=== PATIENT | female | born 1940 | race Caucasian/White ===

== ENCOUNTER 2019-09-04 10:04 | Inpatient (IN) | payer MEDICARE, SELFPAY ==
[2019-09-04] VITALS (27 sets, daily range): BP systolic 83–183; BP diastolic 55–91; PULSE 54–145; RESP 8–18; TEMP 36.1–36.6; O2SAT 92–100; BMI 31.6
--- NOTE | ~2019-09-04 | XR_ITS ---
EXAMINATION: XR chest 2V DATE: 09/04/2019 11:03 INDICATION: Shortness of breath. Chest pain. TECHNIQUE: Frontal and lateral views of the chest were obtained. COMPARISON: Chest CT 08/07/2018 FINDINGS: There is mild scarring at the lung apices. No pleural effusion or pneumothorax. Cardiomegal y is noted. IMPRESSION: 1. Cardiomegaly. Reviewed, dictated and finalized at location A. IMPRESSION: 1. Cardiomegaly.
--- NOTE | ~2019-09-04 | CT_ITS ---
EXAMINATION: CT BRAIN W/O DATE: 09/06/2019 13:12 INDICATION: Confusion. Headache. TECHNIQUE: Computed tomography (CT) of the head was performed without intravenous contrast. The dose- length product was 605.33 mGy-cm. The mA was adjusted according to patient size. Iterative reconstruc tion technique was employed. COMPARISON: No prior studies for comparison. FINDINGS: Normal brain parenchymal volume for age. Normal onofre-white differentiation. No acute intrac ranial hemorrhage, infarction, mass or mass effect. There are scattered mild periventricular and subc ortical white matter changes, most likely related to small vessel ischemic disease (microangiopathy). There is intracranial atherosclerosis. No ventriculomegaly or midline shift. Midline sagittal images demonstrate a normal corpus callosum, c raniovertebral junction and sella turcica. Basilar cisterns are patent. Paranasal sinuses and mastoids are pneumatized. No depressed skull fractures. IMPRESSION: 1. No acute intracranial abnormality. Reviewed, dictated and finalized at location A.
--- NOTE | ~2019-09-04 | CT_ITS ---
EXAMINATION: CT brain wo con DATE: 09/04/2019 20:27 INDICATION: Left upper extremity numbness and tingling. Visual changes. TECHNIQUE: Computed tomography (CT) of the head was performed without intravenous contrast. The dose- length product was 605.33 mGy-cm. The mA was adjusted according to patient size. Iterative reconstruc tion technique was employed. COMPARISON: CT dated 08/07/2018 FINDINGS: Mild generalized atrophy. No acute intracranial hemorrhage, infarction, mass or mass effect . No ventriculomegaly or midline shift. There are scattered mild periventricular and subcortical whit e matter changes, most likely related to small vessel ischemic disease (microangiopathy). Paranasal s inuses and mastoids are pneumatized. No depressed skull fractures. Midline sagittal images are unrema rkable. There is intracranial atherosclerosis. IMPRESSION: 1. No acute intracranial abnormality. 2: Chronic age-related findings. Reviewed, dictated and finalized at location A.
--- NOTE | ~2019-09-04 | US_ITS ---
EXAMINATION: US carotid duplex BI DATE: 09/05/2019 13:08 INDICATION: Left upper extremity numbness and tingling. Subjective visual disturbance. TECHNIQUE: Grayscale, color Doppler, and pulsed Doppler images of the cervical carotid arteries were obtained. The degree of vessel stenosis is placed in one of the following categories: normal, <50%, 5 0-69%, >=70% but less than near-occlusion, near-occlusion, or total occlusion. Note that percent sten osis relative to normal distal artery lumen diameter is indirectly measured from velocity measurement s as described by Daniel, et al. Radiology 2003; 229:340-346. COMPARISON: None. FINDINGS: RIGHT: The right common carotid artery (CCA) peak systolic velocity (PSV) is 47 cm/s. The right internal car otid artery (ICA) PSV is 91 cm/s. The right ICA end-diastolic velocity (EDV) is 29 cm/s. The right IC A/CCA PSV ratio is 1.9. Grayscale and color Doppler images yield an estimate of <50% diameter reducti on from plaque in the ICA. The external carotid artery (ECA) PSV is 61 cm/s. There is antegrade flow in the right vertebral artery. LEFT: The left CCA PSV is 50 cm/s. The left ICA PSV is 63 cm/s. The left ICA EDV is 20 cm/s. The left ICA/C CA PSV ratio is 1.3. Grayscale and color Doppler images yield an estimate of <50% diameter reduction from plaque in the ICA. The ECA PSV is 59 cm/s. There is antegrade flow in the left vertebral artery. IMPRESSION: 1. <50% stenosis in the right internal carotid artery. 2. <50% stenosis in the left internal carotid artery. Reviewed, dictated and finalized at location A.
--- NOTE | 2019-09-04 10:16 | ECG_ITS ---
Measurements Intervals [place] Rate: 144 P: [place]: 0 QRS: 47 QRSD: 85 T: 212 QT: 276 QTc: 427 Interpretive Statements SUPRAVENTRICULAR TACHYCARDIA, CONSIDER ATRIAL FLUTTER ST-T WAVE ABNORMALITY IN DIFFUSE LEADS- CONSIDER ISCHEMIA ABNORMAL ECG Electronically Signed On 09-04-2019 10:21:47 CDT by Ramos Chavez D.O.
--- NOTE | 2019-09-04 10:29 | ED.GENADULT ---
HPI - General Adult General Chief complaint: Chest Pain Stated complaint: DIARRHEA Time Seen by Provider: 09/04/19 10:20 History of Present Illness HPI narrative: 79yo female with history of atrial fibrillation, coronary artery disease, hypertension, hypothyroidism, ckd BIBEMS for multiple complaints. The history is limited and somewhat unrelieble due to confusion. She reports stabbing chest pain. Onset uncertain. She also reports a bought of diarrhea and generally not feeling well. When EMS arrived they found her to be hypotensive. She received 1 liter NS. Related Data Home Medications Medication Instructions Recorded Confirmed amlodipine 5 mg PO DAILY 09/04/19 09/04/19 cetirizine 5 mg PO DAILY 09/04/19 09/04/19 hydrochlorothiazide 12.5 mg PO DAILY 09/04/19 09/04/19 lisinopril 20 mg PO DAILY 09/04/19 09/04/19 omeprazole 20 mg PO DAILY 09/04/19 09/04/19 sertraline 100 mg PO DAILY 09/04/19 09/04/19 Allergies Allergy/AdvReac Type Severity Reaction Status Date / Time [id number] Reductase Allergy Mild hives Verified 09/05/19 09:35 Inhibitor Sulfa (Sulfonamide Allergy Unknown Unknown Verified 09/11/17 15:45 Antibiotics) Review of Systems Review of Systems: All systems reviewed & are unremarkable except as noted in HPI and below Constitutional: Constitutional: Reports weakness Gastrointestinal: Gastrointestinal: Reports diarrhea Genitourinary: Genitourinary: Denies dysuria Musculoskeletal: Musculoskeletal: Reports back pain Neurologic: Reports confusion and Reports weakness ON LICENSE OF [facility] Past Medical History Medical History Chronic anemia Chronic kidney disease, stage 3 Coronary artery disease With history of stent. Essential hypertension Hypothyroidism Paroxysmal atrial fibrillation Transient ischemic attack (~2009) Surgical History Surgical History History of appendectomy History of bladder suspension procedure History of cholecystectomy History of heart artery stent Family History Family History Other Hypertension Social History Social History Social History: The patient is and lives with her in independent living at [facility]. She denies alcohol, tobacco, and drug use. She designates her , [place], as her surrogate decision maker and she wishes to be a full code. Second hand tobacco smoke exposure: No Spiritual care concerns: No Exam Const: General: alert, confusion and ill appearing Orientation/consciousness: patient oriented x3 HENMT: Mouth: Yes dry mucous membranes Eyes: Pupils: Equal, round and reactive pupils present EOM: EOMs intact bilaterally GI: GI Palp: Yes Soft to palpation and No Tenderness to palpation present (GI) Skin: General skin exam: normal color Neuro: General: patient oriented x3, moves all extremities, no focal motor deficits and CN's II-XI intact bilaterally Speech: normal speech Course Vital Signs Vital signs: Vital Signs Pulse Rate 145 H 09/04/19 10:11 Respiratory Rate 11 L 09/04/19 10:11 Pulse Oximetry 100 09/04/19 10:11 Temperature 36.9 C 09/07/19 16:00 Pulse Rate 125 H 09/07/19 18:00 Respiratory Rate 15 09/07/19 18:00 Blood Pressure 110/64 09/07/19 18:00 Pulse Oximetry 96 09/07/19 18:00 Medical Decision Making Medical Records Medical records reviewed: Yes I reviewed the patient's medical records. Vital Signs Vital Signs: Vital Signs Pulse Rate 145 H 09/04/19 10:11 Respiratory Rate 11 L 09/04/19 10:11 Pulse Oximetry 100 09/04/19 10:11 Temperature 36.9 C 09/07/19 16:00 Pulse Rate 125 H 09/07/19 18:00 Respiratory Rate 15 09/07/19 18:00 Blood Pressure 110/64 09/07/19 18:00 Pulse Oximetry 96 09/07/19 18:00 Lab Data Re
[2019-09-04] MEDS: SODIUM CHLORIDE 0.9% IV 1,000 ML 999 ML IV CONT (10:50)
[2019-09-04 11:00] LABS: Basophils Absolute Auto 0.1 K/mm3 (0.0-0.1); Eosinophils Absolute Auto 0.2 K/mm3 (0-0.3); Eosinophils Percent Auto 2.4 % (0-4.4); Hematocrit 37.5 % (37.0-47.0); Hemoglobin 12.8 g/dL (12.0-15.0); Immature Granulocyte Absolute 0.03 K/mm3 (0.00-0.031); Immature Granulocyte Percent A 0.4 % (0-0.5); Lymphocytes Absolute Auto 2.64 K/mm3 (0.9-3.2); Lymphocytes Percent Auto 36.7 % (18.3-44.2); Mean Corpuscular HGB Conc 34.1 g/dl (32-36); Mean Corpuscular Hemoglobin 30.5 pg (26-34); Mean Corpuscular Volume 89.3 fl (80-100); Mean Platelet Volume 11.8 fl (7.4-10.4); Monocytes Absolute Auto 0.3 K/mm3 (0.1-0.6); Monocytes Percent Auto 3.8 % (2.6-8.5); Neutrophils Percent Auto 55.7 % (45.5-73.1); Platelet Count Result 257 k/mm3 (150-375); Red Cell Distribution Width 15.9 % (11.5-14.5); White Blood Count 7.2 K/mm3 (4.5-10.0)
[2019-09-04 11:11] LABS: INR 1.1; Prothrombin Time 13.4 Seconds (11.1-14.7)
[2019-09-04 11:12] LABS: Partial Thromboplastin Time 42.3 SECONDS (22.3-36.8)
[2019-09-04 11:13] LABS: Lactic Acid Reflex 3.2 mmol/L (0.7-2.1)
[2019-09-04 11:15] LABS: Alanine Aminotransferase 24 U/L (4-35); Albumin Level 4.2 g/dL (3.5-5.1); Alkaline Phosphatase 44 U/L (38-126); Aspartate Amino Transferase 44 U/L (14-36); Bilirubin,Total 0.7 mg/dL (0.2-1.3); Blood Urea Nitrogen 10 mg/dL (7-17); CRP < 0.5 mg/dL (<1.0); Calcium 8.7 mg/dL (8.4-10.2); Carbon Dioxide 22 mmol/L (22-30); Chloride 103 mmol/L (98-107); Estimated CRCL calculation 33 ml/min; Estimated Glomerular Filt Rate 40; Glucose 156 mg/dL (65-105); Potassium 3.4 mmol/L (3.4-5.0); Sodium 136 mmol/L (137-145)
[2019-09-04 11:23] LABS: Troponin I 0.013 ng/mL (0.000-0.034)
[2019-09-04 11:30] LABS: Add Urine Microscopic? YES; Appearance Urine Clear (Clear); Bacteria Urine 1+ /hpf; Bilirubin Urine Negative (Negative); Blood Urine Negative (Negative); Color Urine Yellow (Yellow); Glucose Urine UA Negative (Negative); Ketones Urine Negative (Negative); Leukocyte Esterase Ur Trace LEU/UL (Negative); Mucus Urine Rare /lpf; Nitrate Urine Positive (Negative); Protein Urine Negative (Negative); RBC Urine 0-2 /hpf (0-2); Specific Grav Ur 1.009 (1.001-1.035); Squamous Epithelial Cell Urine Rare /hpf (Few); Urobilinogen Urine Negative mg/dL (<2.0)
[2019-09-04 13:57] LABS: Reflex Lactic Acid Yes or No Add Lactic
[2019-09-04 15:00] LABS: Lactic Acid 1.2 mmol/L (0.7-2.1)
--- NOTE | 2019-09-04 15:11 | ADMGEN ---
This patient, Joanne Newman, was admitted to IMU Room 209-01. Patient/family oriented to hospital policies and general routines including ID bracelet, bed and alarms, visiting hours, pain management, procedures, bathroom and other care routines, personal items, smoking policy, room service/diet, and visiting hours. Valuables list has been completed. Information on how to activate the Rapid Response Team has been discussed. Patient/Family are encouraged to report perceived risks to care and to ask questions if they do not understand what they are told or what they should do.
[2019-09-04] MEDS: LACTATED RINGERS 1,000 ML 125 ML IV CONT (16:50)
--- NOTE | 2019-09-04 18:30 | PM.IMHP ---
H&P: HPI History of Present Illness Chief complaint: Chest pain and generalized malaise. Narrative: oJanne Newman is a 79-year-old female with History of paroxysmal atrial fibrillation, coronary artery disease, hypertension, hypothyroidism, chronic kidney disease stage 3, and history of anemia who presented to the emergency department earlier today via EMS from home for evaluation of chest pain and generalized malaise. Obtaining a history from the patient is somewhat difficult, as she seems to be confused with regards to the last 24 hours. She goes on to say that she is aware that she is confused, and this has never happened before. In any regard, this morning she apparently developed a stabbing sensation , almost like a hot instrumentation instructor the left upper anterior chest region radiating somewhat into the left scapula. It has been constant since the outset, but will occasionally intensify without pattern. She reports no aggravating or alleviating factors. She has also had mild shortness of breath with that in addition to dizziness and some feelings of anxiety. Also, she reports bladder spasms and feelings of incomplete voiding and mild dysuria for the past 2 days or so. On arrival to the emergency department she was hypotensive and tachycardic, either in SVT or possible atrial flutter. After receiving IV fluid rehydration, there was improvement in her blood pressure and heart rate. At the time my evaluation, she once again reports having worsening pain in the left anterior chest with numbness / tingling down the left arm. She has no known history of coronary artery disease. No recent travel or history of venous thromboembolism. She denies pleuritic pain, lower extremity edema, and calf pain. No sweats, nausea, or vomiting. Review of Systems Review of Systems: Narrative: 12 systems were reviewed with pertinent positives and negatives as per HPI. She has had eyelid edema since the trees began to pollenate along with watery eyes. She also reports occasional diplopia, but goes on to say that has been present for years, but only if she is now wearing her glasses. She denies dysphagia and dysarthria. No history of myasthenia gravis. No history of stroke, but she does mention history of TIA. She does have dizziness/vertigo intermittently and apparently this is been a longstanding problem. No recent issues with regards to that, however. She denies focal weakness. She had a loose stool last evening. No recent travel or sick contacts. Except as documented, all other systems were reviewed and are negative. [facility] Past Medical History Medical History (Updated 09/05/19 @ 01:00 by Angela Thapa PA-C) Chronic anemia Chronic kidney disease, stage 3 Coronary artery disease With history of stent. Essential hypertension Hypothyroidism Paroxysmal atrial fibrillation Transient ischemic attack (~2009) Surgical History Surgical History (Updated 09/05/19 @ 00:57 by Angela Thapa PA-C) History of appendectomy History of bladder suspension procedure History of cholecystectomy History of heart artery stent Family History Family History (Updated 09/05/19 @ 00:57 by Angela Thapa PA-C) Other Hypertension Social History Social History (Updated 09/05/19 @ 00:57 by Angela Thapa PA-C) Social History: The patient is and lives with her in independent living at [facility]. She denies alcohol, tobacco, and drug use. She designates her , [place], as her surrogate decision maker and she wishes to be a full code. Second hand tobacco smoke exposure: No Spiritual care concerns: No Meds Home Medications and Allergies Home Medications Medication Instructions Recorded Confirmed Type amlodipine 5 mg PO DAILY 09/04/19 09/04/19 History cetirizine 5 mg PO DAILY 09/04/19 09/04/19 History hydrochlorothiazide 12.5 mg PO DAILY 09/04/19 09/04/19 History lisinopril 20 mg PO DAILY 09/04/19 09/04/19 Hist
--- NOTE | 2019-09-04 20:52 | PC.NURSE ---
Pt called around 1919 panicked, stating she was sob with c/o pelvic pain, dizziness, left chest pain which felt BETTER with pressure and deep breathing and left arm tingling that improved to only include some finger tingling. Placed pt on bed wu and able to void some but still c/o pelvic pain. IVY Scanlon came to see her at this time and was made aware of complaints. Post void bladder scanned with a result of [id number]. [place] [facility] [place]ed 300 more. Nurse then took pt down for stat ct of the head as ordered. Pt now feeling better and resting comfortably. Results of CT communicated to PA.
--- NOTE | 2019-09-04 21:52 | ECG_ITS ---
Measurements Intervals [place] Rate: 54 P: 50 MO: 169 QRS: -6 QRSD: 97 T: 56 QT: 421 QTc: 401 Interpretive Statements SINUS BRADYCARDIA MINIMAL Q WAVES- INFERIOR LEADS BORDERLINE ST-T WAVE ABNORMALITY- DIFFUSE LEADS BASELINE ARTIFACT- I, II, III, AVR, AVL BORDERLINE ECG Electronically Signed On 09-05-2019 7:07:28 CDT by Ramos Chavez D.O.
[2019-09-04] MEDS: NITROGLYCERIN OINTMENT 1 INCH DOSE 0.5 INCH TRANSDERM (23:33)
[2019-09-04] MEDS: ASPIRIN 81 MG CHEWABLE TABLET 324 MG PO (23:37)
[2019-09-05] VITALS (15 sets, daily range): BP systolic 134–170; BP diastolic 82–94; PULSE 54–89; RESP 16–18; TEMP 36.1–36.6; O2SAT 94–98
[2019-09-05] MEDS: HEPARIN SOD/D5W 100 UNITS/ML 25,000 UNITS/250 ML BAG 8 UNITS IV CONT
[2019-09-05 00:17] LABS: Basophils Percent Auto 0.5 % (0.2-1.2); Eosinophils Absolute Auto 0.1 K/mm3 (0-0.3); Eosinophils Percent Auto 1.5 % (0-4.4); Hematocrit 34.9 % (37.0-47.0); Hemoglobin 11.8 g/dL (12.0-15.0); Immature Granulocyte Absolute 0.01 K/mm3 (0.00-0.031); Immature Granulocyte Percent A 0.2 % (0-0.5); Lymphocytes Absolute Auto 2.03 K/mm3 (0.9-3.2); Lymphocytes Percent Auto 34.3 % (18.3-44.2); Mean Corpuscular HGB Conc 33.8 g/dl (32-36); Mean Corpuscular Volume 88.8 fl (80-100); Mean Platelet Volume 11.5 fl (7.4-10.4); Monocytes Absolute Auto 0.3 K/mm3 (0.1-0.6); Monocytes Percent Auto 5.4 % (2.6-8.5); Neutrophils Absolute Auto 3.4 K/mm3 (1.3-6.7); Neutrophils Percent Auto 58.1 % (45.5-73.1); Platelet Count Result 196 k/mm3 (150-375); Red Blood Count 3.93 M/mm3 (4.2-5.4); Red Cell Distribution Width 15.8 % (11.5-14.5); White Blood Count 5.9 K/mm3 (4.5-10.0)
[2019-09-05 00:30] LABS: Partial Thromboplastin Time 41.8 SECONDS (22.3-36.8)
[2019-09-05] MEDS: ACETAMINOPHEN 325 MG TABLET 650 MG PO (04:21)
[2019-09-05 05:27] LABS: Basophils Percent Auto 0.7 % (0.2-1.2); Eosinophils Absolute Auto 0.1 K/mm3 (0-0.3); Hematocrit 34.2 % (37.0-47.0); Hemoglobin 11.6 g/dL (12.0-15.0); Immature Granulocyte Absolute 0.01 K/mm3 (0.00-0.031); Immature Granulocyte Percent A 0.2 % (0-0.5); Lymphocytes Absolute Auto 2.27 K/mm3 (0.9-3.2); Lymphocytes Percent Auto 40.7 % (18.3-44.2); Mean Corpuscular HGB Conc 33.9 g/dl (32-36); Mean Corpuscular Hemoglobin 29.7 pg (26-34); Mean Corpuscular Volume 87.7 fl (80-100); Mean Platelet Volume 11.5 fl (7.4-10.4); Monocytes Absolute Auto 0.3 K/mm3 (0.1-0.6); Monocytes Percent Auto 5.2 % (2.6-8.5); Neutrophils Absolute Auto 2.9 K/mm3 (1.3-6.7); Neutrophils Percent Auto 51.2 % (45.5-73.1); Platelet Count Result 192 k/mm3 (150-375); Red Cell Distribution Width 15.7 % (11.5-14.5); White Blood Count 5.6 K/mm3 (4.5-10.0)
[2019-09-05 05:49] LABS: Alanine Aminotransferase 25 U/L (4-35); Albumin Level 4.1 g/dL (3.5-5.1); Alkaline Phosphatase 46 U/L (38-126); Aspartate Amino Transferase 65 U/L (14-36); Bilirubin,Total 0.9 mg/dL (0.2-1.3); Blood Urea Nitrogen 8 mg/dL (7-17); Calcium 8.8 mg/dL (8.4-10.2); Carbon Dioxide 24 mmol/L (22-30); Chloride 104 mmol/L (98-107); Estimated CRCL calculation 45 ml/min; Estimated Glomerular Filt Rate 54; Glucose 99 mg/dL (65-105); HDL Direct 46 mg/dL; Magnesium 2.1 mg/dL (1.6-2.3); Potassium 3.6 mmol/L (3.4-5.0); Sodium 135 mmol/L (137-145); Triglycerides 220 mg/dL (<150)
[2019-09-05 05:50] LABS: Cholesterol 338 mg/dL (0-200); LDL Cholesterol Direct 195 mg/dL
[2019-09-05 06:45] LABS: Partial Thromboplastin Time > 200.0 SECONDS (22.3-36.8)
[2019-09-05 07:48] LABS: Thyroid Stimulating Hormone Reflex > 100.000 uIU/mL (0.465-4.68)
[2019-09-05] MEDS: LORATADINE 5 MG TABLET PO (08:30)
[2019-09-05] MEDS: NITROGLYCERIN OINTMENT 1 INCH DOSE 0.5 INCH TRANSDERM ×3 (08:30→22:15)
[2019-09-05] MEDS: SERTRALINE HCL 50 MG TABLET 100 MG PO (08:30)
[2019-09-05] MEDS: PANTOPRAZOLE SOD SESQUIHYDRATE 20 MG TAB PO (08:30)
[2019-09-05] MEDS: ASPIRIN 81 MG CHEWABLE TABLET PO (08:30)
[2019-09-05 09:11] LABS: Free T4 Free Thyroxine Reflex < 0.07 ng/dL (0.78-2.19)
[2019-09-05] MEDS: LEVOTHYROXINE SODIUM 25 MCG TABLET PO (10:25)
[2019-09-05] MEDS: EZETIMIBE 10 MG TABLET PO (10:25)
--- NOTE | 2019-09-05 13:34 | PM.CNCAR ---
Assessment and Plan Assessment and plan (1) Non-STEMI (non-ST elevated myocardial infarction): Code(s): I21.4 - Non-ST elevation (NSTEMI) myocardial infarction Status: Acute Assessment and Plan: 79 y/o with h/o HTN, CAD, hypothyroidism who presents with generalized body pain including chest pain), confusion, found to have lactic acidosis and troponin elevation Patient is poor historian, reports remote cardiac stent >10 years ago with no cardiology follow up for many years Her troponin elevation could be due to type II WV from increased demand related underlying infection suggested by lactic acidosis however she has no leukocytosis or fever to support that hence Acute coronary syndrome can't be ruled out Patient currently chest pain free and her EKG shows no injury or ischemic changes Will continue with IV heparin and start ASA/statin Will check 2D echocardiogram to assess LV function Will follow blood cultures and if they remain negative with no evidence of infection then will plan LHC/coronary angiogram possibly by Saturday Okay to advanced diet (2) Essential hypertension: Code(s): I10 - Essential (primary) hypertension Status: Acute Assessment and Plan: Hypotensive on admisison. Better after received IV fluids. Will hold antihypertensives for now. (3) Hypothyroidism: Code(s): E03.9 - Hypothyroidism, unspecified Status: Acute Assessment and Plan: with TSH >100. Management per priry team (4) Confusion: Code(s): R41.0 - Disorientation, unspecified Status: Acute Assessment and Plan: CT head with no acute findings. possibly metabolic in the setting of UTI History of Present Illness History of Present Illness Consult date/time: 09/05/19 13:34 79 y/o female with h/o CAD, HTN and Hypothyroidism who presents with not feeling well Patient is difficult historian. She reports dizziness and generalized body pain including chest pain that she describe as discomfort and squeeze sensation. She can't specifiy how long symptoms has been ongoing for. She thinks her called the ambulance eventually. On admission she was hypotensive with BP 88/50 with labs showing lactic acidosis of 3.3. She recevied fluids and with that her BP corrected. She was started on Abx for UTI but her WBC is normal and she is a febrile. Labs were also remarkable for profound hypothyroidism with TSH of >100 and almost undetectable FT4. Her initial trop was normal then subsequent trop was 2.6-->2.1. She was started on heparin drip. She denies any active chest pain now. She believes that she has stent in her heart placed more than 10 years ago. She has not been followed up by cardiology lately though. initial EKG shows tachycardia at HR 144. She has very low voltage on EKG and it is difficult to tell exact rhythm but it appears likely to be sinus tachycardia.Heart rate improved after she received fluids and Subsequent EKG shows sinus rhythm at heart rate of 70, still with low voltage. Denies tobacco abuse. Reason For Visit: Chest pain and generalized malaise. Review of Systems Review of Systems: All systems reviewed & are unremarkable except as noted in HPI and below Constitutional: Constitutional: Denies fatigue and Denies headache(s) Eyes: Eyes: Denies blurry vision ENT: Reports Normal hearing present and Denies headache(s) Cardiovascular: Cardiovascular: Denies chest pain, Denies diaphoresis, Denies pedal edema, Denies leg edema, Denies lightheadedness, Denies palpitations and Denies dyspnea Respiratory: Respiratory: Denies cough and Denies dyspnea Gastrointestinal: Gastrointestinal: Denies abdominal pain Musculoskeletal: Musculoskeletal: Denies back pain Neurologic: Reports Normal hearing present and Denies headache(s) Psychiatric: Psychiatric: Denies anxiety Endocrine: Endocrine: Denies fatigue and Denies palpitations PMFSH Past Medical History Medical His
[2019-09-05 14:03] LABS: Partial Thromboplastin Time 69.6 SECONDS (22.3-36.8)
[2019-09-05] MEDS: HEPARIN SODIUM 5,000 UNITS/ML VIAL 2500 UNITS IV PUSH (14:27)
--- NOTE | 2019-09-05 15:36 | PM.IMPN ---
Progress Note: A&P Assessment and Plan (1) Chest pain: Code(s): R07.9 - Chest pain, unspecified Status: Acute Assessment and Plan: -----Troponins elevated but trending down. Patient is not having any more chest pain and no evidence of tachycardia on exam. She is now on a heparin drip. History of a stent 10 years ago, but does not take medications. She will be restarted on aspirin and Zetia because the patient has allergies to statins. Plan to do a catheterization possibly Saturday. Patient is currently on heparin. Echo ordered. (2) Confusion: Code(s): R41.0 - Disorientation, unspecified Status: Acute Assessment and Plan: -----likely due to UTI and untreated hypothyroidism. Continue treatment for both. Since she is elderly with possible heart disease, Levothyroxine was started 25 mcg. (3) Urinary tract infection: Code(s): N39.0 - Urinary tract infection, site not specified Status: Acute Assessment and Plan: -----urine culture still pending. Continue ceftriaxone at this time. Await cultures and adjust therapy as needed. Symptoms improving (4) Chronic kidney disease, stage 3: Code(s): N18.3 - Chronic kidney disease, stage 3 (moderate) Status: Acute Assessment and Plan: -----creatinine at baseline. IV fluids stopped. (5) Chronic anemia: Code(s): D64.9 - Anemia, unspecified Status: Acute Assessment and Plan: -----chronic. Continue to monitor (6) Essential hypertension: Code(s): I10 - Essential (primary) hypertension Status: Acute Assessment and Plan: -----last blood pressure 153/90. She has not been taking any of her home medications. Will start losartan. (7) Hypothyroidism: Code(s): E03.9 - Hypothyroidism, unspecified Status: Acute Assessment and Plan: -----patient has not been taking her Synthroid for quite some time. TSH is greater than 100 and T4 is undetectable. Will start 25 mcg of levothyroxine since she is elderly and has possible heart disease. Will need close monitoring outpatient and likely increase in this dose. (8) Hypothyroidism: Code(s): E03.9 - Hypothyroidism, unspecified Status: Acute Time Spent With Patient Time with patient: 25 - 35 minutes Subjective Date/time seen: 09/05/19 15:36 Interval history: Pt is a noncompliance 79-year-old female here for confusion and chest pain. Patient was seen today and states she has not had any chest pain or palpitations since being here. She says she still feels confused but that has been going on for a while. She has had some nausea with food but no vomiting. She denies fevers, chills, or leg swelling. She says she is no longer having dysuria or frequency. She mentions that she has a diagnosis of hypothyroidism but quit taking her medications. When asked why, she said she moved never refilled them. I talked to her about the importance Synthroid and how hypothyroidism can actually cause her confusion as well. She now understands the importance of taking his medication although I am not sure if she will be compliant. Her last cardiac catheterization was 10 years ago after an abnormal stress test. Review of Systems Review of Systems: All systems reviewed & are unremarkable except as noted in HPI and below Exam Narrative: Exam Narrative: General: Overweight patient resting comfortably in bed in no acute distress HEENT: normocephalic Neck: supple Neuro: Alert and oriented x4 for me today. Cranial nerves 2-12 intact. Equal strength upper lower extremities 5/5. Able to do [id number] and rapid alternating movements. CV:RRR and telemetry shows heart rate 61 normal sinus rhythm. She does have some episodes of bradycardia. Resp: Crackles, especially at the right base Abd: Soft, non distended. No pain to palpation. Positive bowel sounds Extremities: No swelling, erythema, o
[2019-09-05 21:34] LABS: Partial Thromboplastin Time > 200.0 SECONDS (22.3-36.8)
[2019-09-06] VITALS (14 sets, daily range): BP systolic 139–174; BP diastolic 86–102; PULSE 58–89; RESP 16–20; TEMP 36.1–36.8; O2SAT 93–100
[2019-09-06 03:53] LABS: Hematocrit 35.1 % (37.0-47.0); Hemoglobin 12.4 g/dL (12.0-15.0); Mean Corpuscular HGB Conc 35.3 g/dl (32-36); Mean Corpuscular Hemoglobin 30.4 pg (26-34); Mean Platelet Volume 11.1 fl (7.4-10.4); Platelet Count Result 177 k/mm3 (150-375); Red Blood Count 4.08 M/mm3 (4.2-5.4); Red Cell Distribution Width 15.3 % (11.5-14.5); White Blood Count 6.5 K/mm3 (4.5-10.0)
[2019-09-06 04:07] LABS: Alanine Aminotransferase 29 U/L (4-35); Albumin Level 4.4 g/dL (3.5-5.1); Alkaline Phosphatase 49 U/L (38-126); Aspartate Amino Transferase 62 U/L (14-36); Bilirubin,Total 0.9 mg/dL (0.2-1.3); Blood Urea Nitrogen 8 mg/dL (7-17); Calcium 9.3 mg/dL (8.4-10.2); Carbon Dioxide 22 mmol/L (22-30); Chloride 100 mmol/L (98-107); Estimated CRCL calculation 45 ml/min; Estimated Glomerular Filt Rate 54; Glucose 110 mg/dL (65-105); Partial Thromboplastin Time 136.9 SECONDS (22.3-36.8); Potassium 3.2 mmol/L (3.4-5.0); Sodium 133 mmol/L (137-145)
[2019-09-06] MEDS: NITROGLYCERIN OINTMENT 1 INCH DOSE 0.5 INCH TRANSDERM ×3 (05:09→20:41)
--- NOTE | 2019-09-06 05:28 | PC.NURSE ---
Pt woke up slightly confused, sitting up in bed with complaints of chest pain that had subsided when nurse reached bedside. Blood pressure 157/102 sitting. Nitro patch replaced to chest. Pt still complaining of dizziness and wanted to lay back down. Pt did recall that she was in the hospital and recalled when reminded about seeking care for chest pain and cardiac cath planned for Saturday. Pt able to answer orientation questions correctly. Pt was asleep again when nurse checked on her a few minutes later.
[2019-09-06] MEDS: LEVOTHYROXINE SODIUM 25 MCG TABLET PO (06:28)
[2019-09-06] MEDS: EZETIMIBE 10 MG TABLET PO (08:04)
[2019-09-06] MEDS: SERTRALINE HCL 50 MG TABLET PO (08:04)
[2019-09-06] MEDS: LOSARTAN POTASSIUM 50 MG TABLET PO (08:04)
[2019-09-06] MEDS: LORATADINE 5 MG TABLET PO (08:04)
[2019-09-06] MEDS: PANTOPRAZOLE SOD SESQUIHYDRATE 20 MG TAB PO (08:04)
[2019-09-06] MEDS: ASPIRIN 81 MG CHEWABLE TABLET PO (08:05)
[2019-09-06] MEDS: POTASSIUM CHLORIDE 20 MEQ TABLET 40 MEQ PO (09:56)
[2019-09-06 10:21] LABS: Partial Thromboplastin Time 61.7 SECONDS (22.3-36.8)
[2019-09-06] MEDS: HEPARIN SODIUM 5,000 UNITS/ML VIAL 2500 UNITS IV PUSH (10:45)
--- NOTE | 2019-09-06 12:32 | PM.PNCARD ---
Progress Note: A&P Assessment and Plan (1) Non-STEMI (non-ST elevated myocardial infarction): Code(s): I21.4 - Non-ST elevation (NSTEMI) myocardial infarction Status: Acute Assessment and Plan: 79 y/o with h/o HTN, CAD, hypothyroidism who presents with generalized body pain including chest pain and trop elevation peaked at 2. Also found to have profound hypothyroidism with TSH >100 Chest pain free. No events on tele. 2D echo pending (could not be done over the weekend) On IV heparin. Will plan C/coronary angiogram in am. Patient understands risks and benefits. Agrees to proceed. She reports having cardiac stent 10 years ago. Unknown anatomy. (2) Essential hypertension: Code(s): I10 - Essential (primary) hypertension Status: Acute Assessment and Plan: Hypotensive on admisison. Better after received IV fluids. Antihypertensives has been hled. BP high now. Will resume Lisinopril. . (3) Hypothyroidism: Code(s): E03.9 - Hypothyroidism, unspecified Status: Acute Assessment and Plan: with TSH >100. Management per [facility] (4) Confusion: Code(s): R41.0 - Disorientation, unspecified Status: Acute Assessment and Plan: CT head with no acute findings. possibly metabolic in the setting of UTI and hypothyrodism Subjective Date/time seen: 09/06/19 12:32 Feels tired and sleepy this am. She is alert and oriented. Review of Systems Review of Systems: All systems reviewed & are unremarkable except as noted in HPI and below Constitutional: Constitutional: Denies fatigue and Denies headache(s) Eyes: Eyes: Denies blurry vision ENT: Reports Normal hearing present and Denies headache(s) Cardiovascular: Cardiovascular: Denies chest pain, Denies diaphoresis, Denies pedal edema, Denies leg edema, Denies lightheadedness, Denies palpitations and Denies dyspnea Respiratory: Respiratory: Denies cough and Denies dyspnea Gastrointestinal: Gastrointestinal: Denies abdominal pain Musculoskeletal: Musculoskeletal: Denies back pain Neurologic: Reports Normal hearing present and Denies headache(s) Psychiatric: Psychiatric: Denies anxiety Endocrine: Endocrine: Denies fatigue and Denies palpitations Exam Const: General: no acute distress Eyes: Sclera: sclerae normal Neck: Neck: no JVD Carotids: no bruits Resp: Effort & Inspection: normal respiratory effort Auscultation: clear to auscultation bilaterally Cardio: Rate: regular rate and not tachycardic Rhythm: regular rhythm Heart sounds: no gallops, no murmurs and no rubs Skin: General skin exam: normal color Neuro: Cranial nerves: Yes Normal hearing present Speech: normal speech Extrem: General: normal to inspection and no edema Psych: Affect: normal affect Objective Data Vital Signs Vital Signs: Vital Signs - 24 hr 09/05/19 14:38 09/05/19 16:00 09/05/19 18:00 Temperature 36.6 C Pulse Rate 74 68 89 Respiratory Rate 18 Blood Pressure 154/94 H Pulse Oximetry 96 09/05/19 18:50 09/05/19 20:00 09/05/19 22:00 Temperature 36.2 C L Pulse Rate 78 71 86 Respiratory Rate 16 Blood Pressure 166/91 H Pulse Oximetry 98 09/05/19 23:29 09/06/19 00:00 09/06/19 02:00 Temperature 36.1 C L Pulse Rate 73 70 69 Respiratory Rate 18 Blood Pressure 163/86 H Pulse Oximetry 94 09/06/19 03:59 09/06/19 04:00 09/06/19 05:27 Temperature 36.1 C L Pulse Rate 66 66 Respiratory Rate 16 Blood Pressure 159/92 H 157/102 H Pulse Oximetry 93 09/06/19 05:59 09/06/19 08:00 09/06/19 10:02 Temperature 36.2 C L Pulse Rate 79 89 75 Respiratory Rate 16 Blood Pressure 139/92 H Pulse Oximetry 98 09/06/19 12:00 Temperature 36.4 C Pulse Rate 71 Respiratory Rate 16 Blood Pressure 161/89 H Pulse Oximetry 97 Intake/Output Intake/Output: Intake & Output 09/03/19 09/04/19 09/05/19 09/06/19 23:59 23:59 23:59 23:59 Intake Total 0440 710
--- NOTE | 2019-09-06 15:52 | PM.IMPN ---
Progress Note: A&P Assessment and Plan (1) Chest pain: Code(s): R07.9 - Chest pain, unspecified Status: Acute Assessment and Plan: -----Troponins elevated but trending down. Patient is not having any more chest pain and no evidence of tachycardia on exam. She is now on a heparin drip. History of a stent 10 years ago, but does not take medications. She will be restarted on aspirin and Zetia because the patient has allergies to statins. Plan to do a catheterization Saturday. Echo ordered. (2) Confusion: Code(s): R41.0 - Disorientation, unspecified Status: Acute Assessment and Plan: -----likely due to UTI and untreated hypothyroidism. Continue treatment for both. Head CT negative for bleed today. Since she is elderly with possible heart disease, Levothyroxine was started 25 mcg. (3) Urinary tract infection: Code(s): N39.0 - Urinary tract infection, site not specified Status: Acute Assessment and Plan: -----Urine cx confirmed e. coli UTI sensitive to ceftriaxone. Continue with that. (4) Chronic kidney disease, stage 3: Code(s): N18.3 - Chronic kidney disease, stage 3 (moderate) Status: Acute Assessment and Plan: -----creatinine at baseline. IV fluids stopped. (5) Chronic anemia: Code(s): D64.9 - Anemia, unspecified Status: Acute Assessment and Plan: -----chronic. Continue to monitor (6) Essential hypertension: Code(s): I10 - Essential (primary) hypertension Status: Acute Assessment and Plan: -----last blood pressure 161/89. She has not been taking any of her home medications. Continue losartan. Will do PRN hydralazine. After cath, may consider adding a 2nd medication if still running high. (7) Hypothyroidism: Code(s): E03.9 - Hypothyroidism, unspecified Status: Acute Assessment and Plan: -----patient has not been taking her Synthroid for quite some time. TSH is greater than 100 and T4 is undetectable. Started 25 mcg of levothyroxine since she is elderly and has possible heart disease. Will need close monitoring outpatient and likely increase in this dose. Subjective Date/time seen: 09/06/19 15:52 Interval history: Pt is a noncompliance 79-year-old female here for confusion and chest pain. Patient seen today and she states she is tired today and slept well overnight. She has not had any CP, palpitations, or SOB since being here. She still feels a bit confused and weak. Nursing staff said she took awhile to wake up earlier but neuro exam was fine with normal speech. Pt states she is eating and drinking well. No diarrhea. Exam Narrative: Exam Narrative: General: Overweight patient resting comfortably in bed in no acute distress HEENT: normocephalic Neck: supple Neuro: Alert and oriented x4 for me today. Cranial nerves 2-12 intact. Equal strength upper lower extremities 5/5. Able to do [id number] and rapid alternating movements. CV:RRR and telemetry shows heart rate 60. No significant alarm reviews Resp: CTA today. Abd: Soft, non distended. No pain to palpation. Positive bowel sounds Extremities: No swelling, erythema, or pain to palpation. Objective Data Vital Signs Vital Signs: Vital Signs - 24 hr 09/05/19 16:00 09/05/19 18:00 09/05/19 18:50 Temperature 97.8 F 97.1 F L Pulse Rate 68 89 78 Respiratory Rate 18 16 Blood Pressure 154/94 H 166/91 H Pulse Oximetry 96 98 09/05/19 20:00 09/05/19 22:00 09/05/19 23:29 Temperature 96.9 F L Pulse Rate 71 86 73 Respiratory Rate 18 Blood Pressure 163/86 H Pulse Oximetry 94 09/06/19 00:00 09/06/19 02:00 09/06/19 03:59 Temperature 97 F L Pulse Rate 70 69 66 Respiratory Rate 16 Blood Pressure 159/92 H Pulse Oximetry 93 09/06/19 04:00 09/06/19 05:27 09/06/19 05:59 Temperature Pulse Rate 66 79 Respiratory Rate Blood Pressure 157/102 H Pulse
[2019-09-06] MEDS: ACETAMINOPHEN 325 MG TABLET 650 MG PO (22:42)
[2019-09-07] VITALS (18 sets, daily range): BP systolic 90–205; BP diastolic 52–101; PULSE 55–125; RESP 10–20; TEMP 36.8–37.2; O2SAT 93–99
[2019-09-07 02:02] LABS: Partial Thromboplastin Time 55.9 SECONDS (22.3-36.8)
[2019-09-07 04:36] LABS: Hematocrit 33.2 % (37.0-47.0); Hemoglobin 11.6 g/dL (12.0-15.0); Mean Corpuscular HGB Conc 34.9 g/dl (32-36); Mean Corpuscular Hemoglobin 30.4 pg (26-34); Mean Corpuscular Volume 86.9 fl (80-100); Mean Platelet Volume 11.3 fl (7.4-10.4); Platelet Count Result 190 k/mm3 (150-375); Red Blood Count 3.82 M/mm3 (4.2-5.4); Red Cell Distribution Width 15.1 % (11.5-14.5); White Blood Count 5.9 K/mm3 (4.5-10.0)
[2019-09-07 04:55] LABS: Alanine Aminotransferase 33 U/L (4-35); Albumin Level 4.3 g/dL (3.5-5.1); Alkaline Phosphatase 48 U/L (38-126); Aspartate Amino Transferase 65 U/L (14-36); Bilirubin,Total 0.9 mg/dL (0.2-1.3); Blood Urea Nitrogen 13 mg/dL (7-17); Calcium 9.6 mg/dL (8.4-10.2); Carbon Dioxide 27 mmol/L (22-30); Chloride 96 mmol/L (98-107); Estimated CRCL calculation 42 ml/min; Estimated Glomerular Filt Rate 48; Glucose 106 mg/dL (65-105); Phosphorus 3.5 mg/dL (2.5-4.5); Potassium 3.6 mmol/L (3.4-5.0); Sodium 130 mmol/L (137-145)
[2019-09-07] MEDS: NITROGLYCERIN OINTMENT 1 INCH DOSE 0.5 INCH TRANSDERM (05:27)
[2019-09-07] MEDS: LEVOTHYROXINE SODIUM 25 MCG TABLET PO (05:28)
--- NOTE | 2019-09-07 09:11 | PM.PNCARD ---
Progress Note: A&P Assessment and Plan (1) Non-STEMI (non-ST elevated myocardial infarction): Code(s): I21.4 - Non-ST elevation (NSTEMI) myocardial infarction Status: Acute Assessment and Plan: pt has multiveseel disease. IABP was placed. pt will be transferred for Heart Team approach to [facility]. For now is going to be transferred to ICU. (2) Chest pain: Code(s): R07.9 - Chest pain, unspecified Status: Acute (3) Essential hypertension: Code(s): I10 - Essential (primary) hypertension Status: Acute Subjective Date/time seen: 09/07/19 09:11 Pt with hx of CAD s/p PCI 10 yrs ago, hypothyroidism who was admitted with Atrial flutter. She was found to have elevated troponin and was diagnosed with NSTEMI. pt underwent cath today. Exam Const: General: no acute distress Nutritional Appearance: well nourished Orientation/consciousness: patient oriented x3 HENMT: Head: normal to inspection and atraumatic Ears: hearing grossly normal bilaterally Face and sinus: normal facial exam Eyes: General: appearance normal, both eyes and all related structures Pupils: Equal, round and reactive pupils present EOM: EOMs intact bilaterally Neck: Neck: supple Chest: Chest palpation & inspection: normal inspection of the chest Resp: Effort & Inspection: normal respiratory effort and no respiratory distress Auscultation: clear to auscultation bilaterally Cardio: Jugular venous distension: no JVD Rate: regular rate Heart sounds: S1 normal heart sound present, S2 normal heart sound present and no murmurs Peripheral pulses: Peripheral pulses 2+ throughout GI: GI Palp: No abdominal tenderness Auscultation: normal bowel sounds Skin: General skin exam: normal color Neuro: General: patient oriented x3 Cranial nerves: Yes Equal, round and reactive pupils present Extrem: General: normal to inspection and no clubbing, cyanosis or edema Objective Data Vital Signs Vital Signs: Vital Signs - 24 hr 09/06/19 10:02 09/06/19 12:00 09/06/19 14:00 Temperature 36.4 C Pulse Rate 75 71 60 Respiratory Rate 16 Blood Pressure 161/89 H Pulse Oximetry 97 09/06/19 16:00 09/06/19 18:00 09/06/19 20:00 Temperature 36.3 C L 36.8 C Pulse Rate 70 75 82 Respiratory Rate 20 18 Blood Pressure 171/98 H 174/86 H Pulse Oximetry 100 97 09/06/19 22:00 09/07/19 00:00 09/07/19 02:00 Temperature 37.2 C Pulse Rate 78 74 72 Respiratory Rate 18 Blood Pressure 170/93 H Pulse Oximetry 96 09/07/19 04:00 09/07/19 06:00 09/07/19 08:00 Temperature 36.8 C 36.9 C Pulse Rate 66 68 65 Respiratory Rate 18 18 Blood Pressure 142/82 H 169/96 H Pulse Oximetry 93 97 Intake/Output Intake/Output: Intake & Output 09/04/19 09/05/19 09/06/19 09/07/19 23:59 23:59 23:59 23:59 Intake Total 2308 880 930 250 Output Total 150 3325 2275 1000 Balance 2158 -2445 -1345 -750 Meds/Results Medications: Active Medications Generic Name Dose Route Start Last Admin Trade Name Freq PRN Reason Stop Dose Admin Acetaminophen 650 mg 09/05/19 04:13 09/06/19 22:42 Tylenol Tablet PO 650 mg Q6H PRN Administration Mild Pain (1-3) or Fever Aspirin 81 mg 09/05/19 08:00 09/06/19 08:05 Aspirin Chewable PO 81 mg DAILY@0800 [facility] Administration Ezetimibe 10 mg 09/05/19 09:00 09/06/19 08:04 Zetia PO 10 mg QAM [facility] Administration Heparin Sodium (Porcine) 4,000 units 09/04/19 23:31 Heparin Sodium IV PUSH PRN PRN aPTT less than 55 seconds Heparin Sodium (Porcine) 2,500 units 09/04/19 23:31 09/06/19 10:45 Heparin Sodium IV PUSH 2,500 units PRN PRN Administration aPTT 55 - 70 seconds Hydralazine HCl 10 mg 09/06/19 15:57 Apresoline Hcl Inj IV PUSH Q8H PRN systolic >170 Ceftriaxone Sodium/Dextrose 1 gm in 50 mls @ 100 mls/hr 09/05/19 09:00 09/06/19 09:14 Rocephin 1 Gm/D5w 50 Ml IVPB Infused Q24H [facility] Inf[employer]
--- NOTE | 2019-09-07 09:19 | ECG_ITS ---
Measurements Intervals [place] Rate: 62 P: 68 [place]: 194 QRS: 12 QRSD: 95 T: 57 QT: 424 QTc: 431 Interpretive Statements SINUS RHYTHM BORDERLINE ST-T WAVE ABNORMALITY- DIFFUSE LEADS BASELINE ARTIFACT- I, II , III, AVF, V4, V6 BORDERLINE ECG Electronically Signed On 09-07-2019 17:47:00 CDT by Ramos Chavez D.O.
--- NOTE | 2019-09-07 11:02 | WPDCNINT ---
Assessment and Plan Assessment and plan (1) Non-STEMI (non-ST elevated myocardial infarction): Code(s): I21.4 - Non-ST elevation (NSTEMI) myocardial infarction Status: Acute Assessment and Plan: NSTEMI status post cardiac catheterization on 09/07/2019: Multi-vessel disease, patient being referred to outside hospital for CABG IABP to place Cardiology following the patient Continue monitor vitals (2) Urinary tract infection: Code(s): N39.0 - Urinary tract infection, site not specified Status: Acute Assessment and Plan: Patient with E coli UTI, susceptible to ceftriaxone -continue ceftriaxone (3) Chronic kidney disease, stage 3: Code(s): N18.3 - Chronic kidney disease, stage 3 (moderate) Status: Acute Assessment and Plan: Creatinine at baseline, continue to monitor (4) Essential hypertension: Code(s): I10 - Essential (primary) hypertension Status: Acute Assessment and Plan: Continue losartan, patient has orders for nitroglycerin infusion for pressure control (5) Hypothyroidism: Code(s): E03.9 - Hypothyroidism, unspecified Status: Acute Assessment and Plan: Continue levothyroxine Additional Plan Discussed with patient updated her with her condition and plan of care. Patient is aware that she will be transferring to [facility] for CABG Code status: Full code Critical care time spent: 38 minutes Due to a high probability of clinically significant, life threatening deterioration, the patient required my highest level of preparedness to intervene emergently and I personally spent this critical care time directly and personally managing the patient. This critical care time included obtaining a history; examining the patient; pulse oximetry; ordering and review of studies; arranging urgent treatment with development of a management plan; evaluation of patient's response to treatment; frequent reassessment; and discussions with other providers. It was exclusive of separately billable procedures and treating other patients and teaching time. Please see Assessment and Plan section and the rest of the note for further information on patient assessment and treatment [employer] Consult Note Consult date: 09/07/19 Time Seen: 09:44 Reason for consult: NSTEMI status post cardiac catheterization with multivessel disease, IABP was placed and await patient transfer for CABG HPI: Joanen Newman is a 79 year old female with past medical history of proximal atrial fibrillation, coronary artery disease, hypertension, hypothyroidism, chronic kidney disease stage 3, history of anemia, TIA presented to the ED via EMS on 09/04/2019 4 chest pain and general malaise. Patient was found to have chest discomfort with his squeezing sensation. Patient also was hypotensive with low blood pressures, elevated lactic acid of 3.3. She received IV fluids with blood pressure correction and lactic acid being normalized. E coli UTI which was sensitive to ceftriaxone. Given NSTEMI with elevated troponin, patient was taken to cardiac catheterization today on 09/07/2019 and found to have multivessel disease, IABP was inserted. Patient was transferred to the ICU in the interim before she can be transferred to a higher level of care for coronary artery bypass graft. Patient seen and examined on arrival to the ICU. She is awake, alert, oriented,, answers to questions appropriately. Patient denies any chest pain, shortness of breath, abdominal pain, nausea vomiting at this time. She complains of left shoulder pain which she states is chronic due to her joint pains. Patient is hemodynamically stable. Have asked our and insert a Jordan catheter. Patient is on amiodarone infusion per Cardiology Review of Systems Review of Systems: All systems reviewed & are unremarkable except as noted in HPI and below PMFSH Past Medical History Medical History (Updated 09/05/19
[2019-09-07] MEDS: AMIODARONE 360 MG/D5W 200 ML 360 MG/200 ML BAG 33.3 MG IV CONT (11:08)
[2019-09-07] MEDS: HEPARIN SOD/D5W 100 UNITS/ML 25,000 UNITS/250 ML BAG IV CONT (11:17)
[2019-09-07] MEDS: NITROGLYCERIN/D5W 200 MCG/ML 50 MG/250 ML BTL IV CONT (11:42)
[2019-09-07] MEDS: ASPIRIN 81 MG CHEWABLE TABLET PO (11:49)
[2019-09-07] MEDS: SODIUM CHLORIDE 0.9% IV 1,000 ML 60 ML IV CONT (11:56)
--- NOTE | 2019-09-07 12:18 | PC.NURSE ---
1102: Called Dr. Horta regarding pt augmented BP systolic running 180-200. Per MD start IV nitro infusion with goal SBP of 160. Also, provider wishes to resume heparin infusion with ACS dosing per pharmacy protocol. Per MD resume amio infusion without bolus, start drip at 1mg/min and follow protocol. Continue IV fluids NS at 60ml/hr. Informed provider pt. drowsy at this time, per MD TSH lab values support this finding, continue to monitor pt. 1212: pt BP dropped to 130 systolic and goal augmentation on IABP no longer met. Paused nitro infusion and called Dr. Horta, per MD discontinue nitro infusion due to pt sensitivity. For SBP greater than 180 give hydralazine PRN low dose.
[2019-09-07 12:23] LABS: Partial Thromboplastin Time 42.2 SECONDS (22.3-36.8)
[2019-09-07] MEDS: hydrALAZINE HCL 20 MG/ML VIAL 5 MG IV PUSH (12:45)
[2019-09-07] MEDS: HEPARIN SODIUM 5,000 UNITS/ML VIAL 4000 UNITS IV PUSH (13:59)
[2019-09-07] MEDS: ACETAMINOPHEN 325 MG TABLET 650 MG PO (14:29)
--- NOTE | 2019-09-07 14:36 | WPDCARDPROC ---
Cardiac Cath Procedure Note Date of procedure:: 09/07/19 Performing physician:: Solis Horta MD Report dictated. Dictation#[id number].
--- NOTE | 2019-09-07 17:01 | PM.IMPN ---
Progress Note: A&P Assessment and Plan (1) Multi-vessel coronary artery stenosis: Code(s): I25.10 - Atherosclerotic heart disease of [place] coronary artery without angina pectoris Status: Acute Assessment and Plan: -----I spoke with Cardiology who told me she has multivessel disease and is not maintaining a systolic pressure when she is in a flutter. For this reason, she was placed on a balloon pump and will be transferred to [place] ICU where she will undergo a bypass. The ICU was full at this time and we are awaiting a bed. The patient is on heparin, amiodarone, and a balloon pump. She does not have any chest pain at this time. (2) Non-STEMI (non-ST elevated myocardial infarction): Code(s): I21.4 - Non-ST elevation (NSTEMI) myocardial infarction Status: Acute Assessment and Plan: -----see above. (3) Chest pain: Code(s): R07.9 - Chest pain, unspecified Status: Acute Assessment and Plan: -----see above (4) Confusion: Code(s): R41.0 - Disorientation, unspecified Status: Acute Assessment and Plan: -----likely due to UTI and untreated hypothyroidism. Continue treatment for both. Head CT negative for bleed. Since she is elderly with heart disease, Levothyroxine was started 25 mcg. This will need to be increased outpatient (5) Urinary tract infection: Code(s): N39.0 - Urinary tract infection, site not specified Status: Acute Assessment and Plan: -----Urine cx confirmed e. coli UTI sensitive to ceftriaxone. Continue with that. (6) Chronic kidney disease, stage 3: Code(s): N18.3 - Chronic kidney disease, stage 3 (moderate) Status: Acute Assessment and Plan: -----creatinine at baseline. IV fluids stopped. (7) Chronic anemia: Code(s): D64.9 - Anemia, unspecified Status: Acute Assessment and Plan: -----chronic. Continue to monitor (8) Essential hypertension: Code(s): I10 - Essential (primary) hypertension Status: Acute Assessment and Plan: -----last blood pressure 150/93. She has not been taking any of her home medications. Continue losartan. Will do PRN hydralazine. (9) Hypothyroidism: Code(s): E03.9 - Hypothyroidism, unspecified Status: Acute Assessment and Plan: -----patient has not been taking her Synthroid for quite some time. TSH is greater than 100 and T4 is undetectable. Started 25 mcg of levothyroxine since she is elderly and has heart disease. Will need close monitoring outpatient and likely increase in this dose. Subjective Date/time seen: 09/07/19 17:01 Interval history: Pt is a noncompliance 79-year-old female here for confusion and chest pain. Patient was seen today after her catheterization and has no complaints. She had some nausea earlier but that has resolved. Pt denies vomiting, fevers, chills, constipation, diarrhea, chest pain, sob, or abdominal pain. Exam Narrative: Exam Narrative: General: Overweight patient resting comfortably in bed in no acute distress HEENT: normocephalic Neck: supple Neuro: Alert and oriented x4. Cranial nerves 2-12 intact. Equal strength upper lower extremities 5/5. CV:RRR currently on a balloon pump. Rate and rhythm is regular at this time Resp: CTA today. Abd: Soft, non distended. No pain to palpation. Positive bowel sounds Extremities: No swelling, erythema, or pain to palpation. Objective Data Vital Signs Vital Signs: Vital Signs - 24 hr 09/06/19 18:00 09/06/19 20:00 09/06/19 22:00 Temperature 98.3 F Pulse Rate 75 82 78 Respiratory Rate 18 Blood Pressure 174/86 H Pulse Oximetry 97 09/07/19 00:00 09/07/19 02:00 09/07/19 04:00 Temperature 98.9 F 98.2 F Pulse Rate 74 72 66 Respiratory Rate 18 18 Blood Pressure 170/93 H 142/82 H Pulse Oximetry 96 93 09/07/19 06:00 09/07/19 08:00 09/07/19 09:45
--- NOTE | 2019-09-07 17:02 | OP_ITS ---
DATE OF PROCEDURE: 09/07/2019 INDICATIONS: The patient is a pleasant 79-year-old white female with past medical history of coronary artery disease, status post PCI/stenting, hypothyroidism, who presented to [facility] because of weakness and generalized pain including chest pain. The patient was found to have atrial flutter and subsequently converted to sinus rhythm after Cardizem infusion. Cardiac enzymes were found to be elevated (troponin 2.6) and she was diagnosed with NSTEMI. Cardiac catheterization was scheduled today to evaluate coronary anatomy. COUNSELING: The risks and benefits of the procedure were explained in detail. Informed consent was obtained and charted. PROCEDURE: 1. Selective coronary angiogram. 2. Intraaortic balloon pump placement. 3. Conscious sedation (8:33 a.m. to 9:03 a.m.). DESCRIPTION OF THE PROCEDURE: The patient was brought to the cardiac catheterization laboratory where both groins were prepped and draped in a sterile fashion. After local anesthesia was obtained with 1% Xylocaine the right femoral artery was entered percutaneously and a 5-Malay sheath was inserted over a guidewire using the modified Seldinger technique. Diagnostic left and right coronary angiography were performed using 5-Malay JL4 and 5-Malay JR4 catheters respectively. Subsequently a 6-Malay pigtail catheter was placed in LV. Afterwards the patient's rhythm switched to atrial flutter and she became hypotensive (BP 70/50 mmHg). Catheter was removed. IV fluids were administered and subsequently bolus of amiodarone was given. Decision to place an intraaortic balloon pump was made to improve blood pressure. Balloon pump was placed with good augmentation. The patient's systolic blood pressure improved initially to 110 mmHg, subsequently to about 170 mmHg systolic. Her heart rate slowed down from 150 to about 71 beats per minute. Then all catheters were removed and the patient was transferred to recovery in stable condition. COMPLICATIONS: None. FINDINGS: 1. LM: large with plaque. 2. LAD: large, calcified, in proximal segment presence of focal 80% stenosis. 3. LCX: large dominant vessel, in mid segment presence of long stented area with about 60% to 70% in-stent restenosis. Distally to the stent, presence of 85% stenosis of dominant LCX. OM1 average with 50% stenosis. 4. RCA: small, nondominant with diffuse disease in proximal segment. SUMMARY: 1. Multivessel coronary artery disease. 2. Successful placement of intraaortic balloon pump. RECOMMENDATION: The patient will be transferred to [facility] for Heart Team approach including cardiac surgery consult and possible CABG. D I MT: Swati SAUNDERS
[2019-09-07] MEDS: AMIODARONE 360 MG/D5W 200 ML 360 MG/200 ML BAG 16.7 MG IV CONT (17:09)
--- NOTE | 2019-09-07 18:03 | ECG_ITS ---
Measurements Intervals [place] Rate: 122 P: 30 [place]: 207 QRS: 70 QRSD: 120 T: -27 QT: 285 QTc: 407 Interpretive Statements JUNCTIONAL TACHYCARDIA OR ECTOPIC ATRIAL TACHYCARDIA ST-T WAVE ABNORMALITY IN ANTEROLATERAL LEADS- CONSIDR ISCHEMIA BASELINE WANDER- V6 ABNORMAL ECG Electronically Signed On 09-08-2019 6:40:57 CDT by Ramos Chavez D.O.
[2019-09-07] MEDS: KCL 20 MEQ/SW 100 ML 100 ML 50 MEQ IVPB (18:30)
--- NOTE | 2019-09-07 19:42 | PC.NURSE ---
Pt. transferred via [facility] to [facility]. Ovidio Rodriguez RN accompanied EMS and pt. on IABP counterpulsation therapy. Family notified of pt. transfer as well as Dr. Horta.
--- NOTE | 2019-09-15 07:21 | PM.TDS ---
Transfer Discharge Sum: Prov Provider Date of admission: 09/04/19 12:03 Primary care physician: Maria D Martínez, MD Admitting clinician: Sesar Chance MD Consults: 09/04/19 Consult to Physician Routine Comment: Consulting Provider: Iron Kumar call worker/MD group to consult: jocelyn Reason for consultation: chest pain, elevated troponin Has provider been notified: Yes DS: Admitting Diagnosis Admitting Diagnosis Admitting Diagnosis: Sepsis, unspecified organism DS: Discharge Diagnosis Discharge Diagnosis (1) Multi-vessel coronary artery stenosis: Code(s): I25.10 - Atherosclerotic heart disease of [place] coronary artery without angina pectoris Status: Acute Assessment and Plan: -----I spoke with Cardiology who told me she has multivessel disease and is not maintaining a systolic pressure when she is in a flutter. For this reason, she was placed on a balloon pump and will be transferred to [place] ICU where she will undergo a bypass. The ICU was full at this time and we are awaiting a bed. The patient is on heparin, amiodarone, and a balloon pump. She does not have any chest pain at this time. (2) Non-STEMI (non-ST elevated myocardial infarction): Code(s): I21.4 - Non-ST elevation (NSTEMI) myocardial infarction Status: Acute Assessment and Plan: -----see above. (3) Chest pain: Qualifiers: Chest pain type: unspecified Qualified Code(s): R07.9 - Chest pain, unspecified Code(s): R07.9 - Chest pain, unspecified Status: Acute Assessment and Plan: -----see above (4) Confusion: Code(s): R41.0 - Disorientation, unspecified Status: Acute Assessment and Plan: -----likely due to UTI and untreated hypothyroidism. Continue treatment for both. Head CT negative for bleed. Since she is elderly with heart disease, Levothyroxine was started 25 mcg. This will need to be increased outpatient (5) Urinary tract infection: Qualifiers: Hematuria presence: with hematuria Urinary tract infection type: site unspecified Qualified Code(s): N39.0 - Urinary tract infection, site not specified; R31.9 - Hematuria, unspecified Code(s): N39.0 - Urinary tract infection, site not specified Status: Acute Assessment and Plan: -----Urine cx confirmed e. coli UTI sensitive to ceftriaxone. Continue with that. (6) Chronic kidney disease, stage 3: Code(s): N18.3 - Chronic kidney disease, stage 3 (moderate) Status: Acute Assessment and Plan: -----creatinine at baseline. IV fluids stopped. (7) Chronic anemia: Code(s): D64.9 - Anemia, unspecified Status: Acute Assessment and Plan: -----chronic. Continue to monitor (8) Essential hypertension: Code(s): I10 - Essential (primary) hypertension Status: Acute Assessment and Plan: -----last blood pressure 110/64. She has not been taking any of her home medications. Continue losartan. Will do PRN hydralazine. (9) Hypothyroidism: Code(s): E03.9 - Hypothyroidism, unspecified Status: Acute Assessment and Plan: -----patient has not been taking her Synthroid for quite some time. TSH is greater than 100 and T4 is undetectable. Started 25 mcg of levothyroxine since she is elderly and has heart disease. Will need close monitoring outpatient and likely increase in this dose. Transfer Discharge Sum: Med Medications Active and Home Medications: Home Medications amlodipine 5 mg PO DAILY 09/04/19 [History Confirmed 09/04/19] cetirizine 5 mg PO DAILY 09/04/19 [History Confirmed 09/04/19] hydrochlorothiazide 12.5 mg PO DAILY 09/04/19 [History Confirmed 09/04/19] lisinopril 20 mg PO DAILY 09/04/19 [History Confirmed 09/04/19] omeprazole 20 mg PO DAILY 09/04/19 [History Confirmed 09/04/19] sertraline 100 mg PO DAILY 09/04/19 [History Co
== END 2019-09-07 19:10 | disposition short-term general hospital (02) | DRG 853 ==
LOC: ANHED 12:06 → ANHIMU 23:53 → ANHICU 09-07 10:38 → ANHIMU 09-10 13:53
PROVIDERS: Internal Medicine Cardiovascular Disease; Physician Assistant; Specialist; Admitting Provider Internal Medicine; Emergency Provider Emergency Medicine; PCP Internal Medicine Geriatric Medicine; Visit Provider Physician Assistant
PROC: 4A023N7 Measurement of Cardiac Sampling and Pressure, Left Heart, Percutaneous Approach (ICD-10-PCS; CPT 93452; principal; 2019-09-07 07:55)
PROC: 5A02210 Assistance with Cardiac Output using Balloon Pump, Continuous (ICD-10-PCS; 2019-09-07 07:55)
DX: A41.9 Sepsis, unspecified organism (principal); I21.4 Non-ST elevation (NSTEMI) myocardial infarction; N39.0 Urinary tract infection, site not specified; E87.2 Acidosis; T82.855A Stenosis of coronary artery stent, initial encounter; I48.92 Unspecified atrial flutter; I95.81 Postprocedural hypotension; B96.20 Unspecified Escherichia coli [E. coli] as the cause of diseases classified elsewhere; I12.9 Hypertensive chronic kidney disease with stage 1 through stage 4 chronic kidney disease, or unspecified chronic kidney disease; N18.3 Chronic kidney disease, stage 3 (moderate); E03.9 Hypothyroidism, unspecified; I48.0 Paroxysmal atrial fibrillation; D64.9 Anemia, unspecified; I25.10 Atherosclerotic heart disease of native coronary artery without angina pectoris; R20.2 Paresthesia of skin; Z95.5 Presence of coronary angioplasty implant and graft; Z86.73 Personal history of transient ischemic attack (TIA), and cerebral infarction without residual deficits; Z90.49 Acquired absence of other specified parts of digestive tract
CPT/HCPCS: 33967; 36415; 51701; 70450; 71046; 80048; 80053; 80061; 80076; 81001; 83605; 83735; 84100; 84439; 84443; 84484; 85025; 85027; 85610; 85730; 86140; 86850; 86900; 86901; 87040; 87077; 87086; 87088; 87186; 93005; 93458; 93880; 96361; 96365; 99285; A9270; C1887; C1894; J0282; J0360; J0696; J1644; J2250; J2405; J3010; J3480; J7030; J7040; J7120

== ENCOUNTER 2020-03-21 11:16 | Emergency (ER) | payer MEDICARE, SELFPAY ==
[2020-03-21 11:15] VITALS: BP 135/54; PULSE 54; RESP 17; TEMP 36.5; O2SAT 100
--- NOTE | 2020-03-21 11:18 | ECG_ITS ---
Measurements Intervals [place] Rate: 54 P: 42 NE: 176 QRS: 20 QRSD: 82 T: 100 QT: 421 QTc: 402 Interpretive Statements SINUS BRADYCARDIA ST-T WAVE ABNORMALITY IN HIGH LATERAL LEADS- CONSIDER ISCHEMIA BASELINE ARTIFACT- I, II, III, AVR, AVL, AVF, V1-V6 ABNORMAL ECG Electronically Signed On 03-21-2020 11:27:12 MANUFACTURING HELPER by Ramos Chavez D.O.
[2020-03-21] MEDS: MECLIZINE HCL 25 MG TABLET PO (11:35)
[2020-03-21 11:44] LABS: Basophils Percent Auto 0.8 % (0.2-1.2); Eosinophils Absolute Auto 0.1 K/mm3 (0-0.3); Eosinophils Percent Auto 2.5 % (0-4.4); Hematocrit 36.6 % (37.0-47.0); Hemoglobin 12.3 g/dL (12.0-15.0); Immature Granulocyte Absolute 0.01 K/mm3 (0.00-0.031); Immature Granulocyte Percent A 0.3 % (0-0.5); Lymphocytes Absolute Auto 0.97 K/mm3 (0.9-3.2); Lymphocytes Percent Auto 26.8 % (18.3-44.2); Mean Corpuscular HGB Conc 33.6 g/dl (32-36); Mean Corpuscular Hemoglobin 28.1 pg (26-34); Mean Corpuscular Volume 83.6 fl (80-100); Mean Platelet Volume 11.6 fl (7.4-10.4); Monocytes Absolute Auto 0.5 K/mm3 (0.1-0.6); Monocytes Percent Auto 13.3 % (2.6-8.5); Neutrophils Percent Auto 56.3 % (45.5-73.1); Platelet Count Result 140 k/mm3 (150-375); Red Blood Count 4.38 M/mm3 (4.2-5.4); Red Cell Distribution Width 15.4 % (11.5-14.5); White Blood Count 3.6 K/mm3 (4.5-10.0)
[2020-03-21 11:55] LABS: Alanine Aminotransferase 12 U/L (4-35); Albumin Level 3.6 g/dL (3.5-5.1); Alkaline Phosphatase 54 U/L (38-126); Anion Gap 5 mmol/L (8-16); Aspartate Amino Transferase 21 U/L (14-36); Bilirubin,Total 0.7 mg/dL (0.2-1.3); Blood Urea Nitrogen 14 mg/dL (7-17); Calcium 9.4 mg/dL (8.4-10.2); Carbon Dioxide 30 mmol/L (22-30); Chloride 104 mmol/L (98-107); Estimated Glomerular Filt Rate > 60; Glucose 103 mg/dL (65-105); Potassium 3.9 mmol/L (3.4-5.0); Sodium 139 mmol/L (137-145)
--- NOTE | 2020-03-21 12:35 | ED.DIZZY ---
HPI - Dizziness General Chief Complaint: Dizziness Stated Complaint: DIZZINESS Time Seen by Provider: 03/21/20 11:18 Source: patient Mode of arrival: EMS Limitations: no limitations History of Present Illness HPI Narrative: 79-year-old with a history of CAD s/p CABG, hypertension, occasional dizzy spells here with complaints of dizziness. Patient states that she was in the shower started to have dizzy spell. She denies any fall. No history of chest pain or shortness of breath. She states presently she is feeling slightly better. No history of nausea or vomiting. MD elicited complaint: dizziness Pertinent past history: BPPV Onset (ago): hour(s) (1) Timing: sudden onset Severity: moderate Description: room spinning Exacerbating factors: nothing Relieving factors: remaining still Associated symptoms: denies other symptoms Related Data Allergies Allergy/AdvReac Type Severity Reaction Status Date / Time No Known Allergies Allergy Verified 03/21/20 11:21 Review of Systems Review of Systems: All systems reviewed & are unremarkable except as noted in HPI and below Constitutional: Constitutional: Reports no additional constitutional complaints Eyes: Eyes: Reports no additional eye complaints ENT: Reports system reviewed and no additional complaints, except as documented Cardiovascular: Cardiovascular: Reports no additional cardiovascular complaints Respiratory: Respiratory: Reports no additional respiratory complaints Gastrointestinal: Gastrointestinal: Reports no additional gastrointestinal complaints Musculoskeletal: Musculoskeletal: Reports no additional musculoskeletal complaints Neurologic: Reports vertigo Endocrine: Endocrine: Reports no additional endocrine complaints Exam Narrative: Exam Narrative: GENERAL: Well-appearing, well-nourished, and in no acute distress. HEAD: Normocephalic, atraumatic. EYES: PERRLA and EOMI. NECK: Supple. CHEST: Clear to auscultation. No respiratory distress. Sternotomy incision present HEART: Regular rate and rhythm. No murmur heard. Normal peripheral pulses. ABDOMEN: Soft, nontender, nondistended, normal active bowel sounds. EXTREMITIES: Normal range of motion. No edema. SKIN: Warm, dry, no rash. NEURO: No focal deficits. Alert and oriented x3. PSYCH: Normal mood and affect. Course Course Emergency Course: Patient states she is feeling much better after meclizine. I discussed lab and EKG findings with the patient. She does feel comfortable going home. Vital Signs Vital signs: Vital Signs Temperature 36.5 C 03/21/20 11:15 Pulse Rate 54 L 03/21/20 11:15 Respiratory Rate 17 03/21/20 11:15 Blood Pressure 135/54 L 03/21/20 11:15 Pulse Oximetry 100 03/21/20 11:15 Temperature 36.5 C 03/21/20 11:15 Pulse Rate 54 L 03/21/20 11:15 Respiratory Rate 17 03/21/20 11:15 Blood Pressure 135/54 L 03/21/20 11:15 Pulse Oximetry 100 03/21/20 11:15 MDM - Dizziness Differential Diagnosis Differential diagnosis: Likely benign paroxysmal positional vertigo, orthostatic hypotension and cerebrovascular accident Lab Data Result diagrams: 03/21/20 11:39 03/21/20 11:39 Labs: Lab Results 03/21/20 03/21/20 Range/Units 11:39 11:39 WBC 3.6 L (4.5-10.0) K/mm3 RBC 4.38 (4.2-5.4) M/mm3 Hgb 12.3 (12.0-15.0) g/dL Hct 36.6 L (37.0-47.0) % MCV 83.6 (80-100) fl MCH 28.1 (26-34) pg MCHC 33.6 (32-36) g/dl RDW 15.4 H (11.5-14.5) % Plt Count 140 L (150-375) k/mm3 MPV 11.6 H (7.4-10.4) fl Immature Gran % (Auto) 0.3 (0-0.5) % Neut % (Auto) 56.3 (45.5-73.1) % Lymph % (Auto) 26.8 (18.3-44.2) % Ferry % (Auto) 13.3 H (2.6-8.5) % Eos % (Auto) 2.5 (0-4.4) % Baso % (Auto) 0.8 (0.2-1.2) % Lymph # (Auto) 0.97 (0.9-3.2) K/mm3 [place]erry # (Auto) 0.5 (0.1-0.6) K/mm3 Eos # (Auto) 0.1 (0-0.3) K/mm3 Baso # (Auto) 0.0 (0.0-0.1) K/mm3 Abs Immat Gran (auto) 0.01 (0.00-0.
[2020-03-21 13:27] VITALS: BP 135/74; PULSE 87; RESP 17; O2SAT 100
== END 2020-03-21 13:28 | disposition home or self-care (01) ==
PROVIDERS: Emergency Provider Family Medicine; PCP Internal Medicine Geriatric Medicine
DX: H81.10 Benign paroxysmal vertigo, unspecified ear (principal); I25.10 Atherosclerotic heart disease of native coronary artery without angina pectoris; Z95.1 Presence of aortocoronary bypass graft; I10 Essential (primary) hypertension; R00.1 Bradycardia, unspecified; R94.31 Abnormal electrocardiogram [ECG] [EKG]
CPT/HCPCS: 36415; 80053; 85025; 93005; 99283; A9270

== ENCOUNTER 2021-02-17 17:01 | Emergency (ER) | payer MEDICARE, SELFPAY ==
[2021-02-17] VITALS (14 sets, daily range): BP systolic 120–174; BP diastolic 53–67; PULSE 53–63; RESP 11–21; TEMP 36.8; O2SAT 94–99
--- NOTE | ~2021-02-17 | CT_ITS ---
EXAMINATION: CT brain wo [facility] EXAM DATE: 02/17/2021 17:25 INDICATION: Syncope. TECHNIQUE: Spiral CT of the head was performed without contrast. Axial, coronal and sagittal images were reviewed. The dose-length product (DLP) for this examination was 605.33 mGy-cm. The exposure w as tailored according to patient size, and iterative reconstruction (ASIR) was used as additional dos e reduction technique. Comparison is made to prior examination from 09/06/2019. FINDINGS: There is no acute intraparenchymal hemorrhage. No evidence of intraparenchymal brain mass lesion. No evidence of acute infarction. Please note that initial head CT has limited sensitivity f or small or acute infarctions. There is mild periventricular and subcortical hypodensity, nonspecific but probably related to small vessel ischemic disease. There is mild prominence of the sulci and v entricles related to cerebral atrophy. There is intracranial carotid arteriosclerosis. There are n o extra-axial collections. There is no mass effect or midline shift. The orbits are unremarkable. Soft tissue is unremarkable. Trace left maxillary sinus fluid. IMPRESSION: 1. No acute intracranial findings. 2. Mild age related findings. Reviewed, dictated and finalized at location A. PACKAGING
--- NOTE | ~2021-02-17 | XR_ITS ---
EXAMINATION: XR chest 1V EXAM DATE: 02/17/2021 17:32 INDICATION: Syncope today. History hypertension. TECHNIQUE: Portable AP frontal chest x-ray was obtained. Comparison is made to prior examination from 09/04/2019. FINDINGS: Sternotomy wires are present without findings to suggest sternal dehiscence. The lungs are clear. There are no pleural effusions. Cardiac silhouette is prominent but magnified on this AP bryan hnique. There is no pneumothorax suspected. The bones and soft tissues are unremarkable. IMPRESSION: No acute cardiopulmonary findings. Reviewed, dictated and finalized at location A. ER BOSS
--- NOTE | 2021-02-17 17:13 | ECG_ITS ---
Measurements Intervals [place] Rate: 51 P: 33 FL: 168 QRS: 2 QRSD: 93 T: 107 QT: 450 QTc: 417 Interpretive Statements SINUS BRADYCARDIA CONSIDER INFERIOR INFARCT, AGE INDETERMINATE ST-T WAVE ABNORMALITY IN HIGH LATERAL LEADS- CONSIDER ISCHEMIA BASELINE ARTIFACT- I, II, III, AVR, AVL, AVF, V1, V3-V6 ABNORMAL ECG Electronically Signed On 02-17-2021 18:42:54 OUTSIDE PLANT TECHNICIAN by Ramos Chavez D.O.
--- NOTE | 2021-02-17 17:18 | ED.GENADULT ---
HPI - General Adult General Chief complaint: Syncope Stated complaint: syncope Source: RN notes reviewed History of Present Illness HPI narrative: Patient presents to emergency department from home for syncopal episode. Patient states she is at home and she was getting up to use the restroom when she became lightheaded and had a syncopal episode. Patient states she feels fine at this time she denies having any headaches, chest pain shortness of breath abdominal pain nausea vomiting or any other symptoms. Denies any recent illness. States no injuries from the syncopal episode Related Data Allergies Allergy/AdvReac Type Severity Reaction Status Date / Time No Known Allergies Allergy Verified 03/21/20 11:21 Review of Systems Review of Systems: Gen.: Denies fevers or chills Eyes: Denies eye pain or visual change ENT: Denies congestion Respiratory: Denies shortness of breath or cough CV: See HPI GI: Denies abdominal pain nausea, emesis or diarrhea Musculoskeletal: Denies back pain or muscle pain Neuro: Denies numbness, tingling, weakness or focal weakness Skin: Denies rash Except as documented, all other systems reviewed and negative [facility] Past Medical History Medical History (Updated 02/17/21 @ 21:07 by Derek Forrest DO) CAD (coronary artery disease) HTN (hypertension), benign Social History Social History (Updated 02/17/21 @ 17:19 by Derek Forrest DO) Smoking status: Never smoker Gender identity (if verbalized by the patient): Female Exam Narrative: APPEARANCE: No acute distress, nontoxic, resting in bed EYES: EOMI, PERRL HEENT: Normocephalic, atraumatic, OMM Neck: Supple nontender palpation full range of motion without pain RESPIRATORY: No respiratory distress Clear to auscultation bilaterally with no rhonchi wheezing or rales. CARDIOVASCULAR: Regular rate and rhythm without murmurs rubs or gallops. ABDOMINAL: Soft, nontender, nondistended, no rebound or guarding MUSCULOSKELETAl: Moves all extremities. No clubbing, cyanosis or edema. NEURO: Awake and alert x 3 Following commands, speech normal, no focal deficits SKIN:: Warm, dry. No rashes lesions or abrasions PSYCHIATRIC: Normal affect/mood, Course Course Emergency Course: Discussed with patient results of workup and diagnosis. Discussed need for follow-up with primary care, proper use of medication, and reasons to return to the emergency department. Patient understands and agrees to current treatment plan patient states she has had a history of having syncopal episodes before in the past states she has had work-ups before in the past so she also has history of recurrent UTIs states she is feeling better and ready for discharge Vital Signs Vital signs: Vital Signs Temperature 98.2 F 02/17/21 17:13 Pulse Rate 55 L 02/17/21 17:13 Respiratory Rate 21 H 02/17/21 17:13 Blood Pressure 120/53 L 02/17/21 17:13 Pulse Oximetry 95 02/17/21 17:13 Temperature 98.2 F 02/17/21 17:13 Pulse Rate 55 L 02/17/21 20:35 Respiratory Rate 20 02/17/21 20:35 Blood Pressure 164/66 H 02/17/21 20:35 Pulse Oximetry 98 02/17/21 20:35 Medical Decision Making MDM Narrative Medical decision making narrative: Patient's episode of syncope is felt due to high risk cause. Syncopal episode was brief and patient is now back to normal mental status. EKG is reviewed without high-risk changes for syncope: There are no signs of prolonged QT or Brugada syndrome. Patient ambulates with a steady gait and is felt to be a reasonable candidate for further evaluation as an outpatient patient has been sitting and went to stand up to use the restroom feel this is likely vasovagal Vital Signs Vital Signs: Vital Signs Temperature 98.2 F 02/17/21 17:13 Pulse Rate 55 L 02/17/21 17:13 Respiratory Rate 21 H 02/17/21 17:13 Blood Pressure 120/53 L 02/17/21 17:13 Pulse Oximetry 95 02/17/21 17:13 Temperature 98.2 F 02/17/21 17:13 Pulse Rate 55 L 11
[2021-02-17 17:30] LABS: Basophils Percent Auto 0.4 % (0.2-1.2); Eosinophils Absolute Auto 0.2 K/mm3 (0-0.3); Eosinophils Percent Auto 2.4 % (0-4.4); Hematocrit 44.1 % (37.0-47.0); Hemoglobin 14.7 g/dL (12.0-15.0); Immature Granulocyte Absolute 0.04 K/mm3 (0.00-0.031); Immature Granulocyte Percent A 0.6 % (0-0.5); Immature Platelet Fraction Pct 9.5 % (0.9-11.2); Lymphocytes Absolute Auto 2.01 K/mm3 (0.9-3.2); Lymphocytes Percent Auto 29.6 % (18.3-44.2); Mean Corpuscular HGB Conc 33.3 g/dl (32-36); Mean Corpuscular Hemoglobin 29.5 pg (26-34); Mean Corpuscular Volume 88.6 fl (80-100); Mean Platelet Volume 11.5 fl (7.4-10.4); Monocytes Absolute Auto 0.4 K/mm3 (0.1-0.6); Neutrophils Absolute Auto 4.2 K/mm3 (1.3-6.7); Platelet Count Result 180 k/mm3 (150-375); Red Blood Count 4.98 M/mm3 (4.2-5.4); Red Cell Distribution Width 14.3 % (11.5-14.5); White Blood Count 6.8 K/mm3 (4.5-10.0)
[2021-02-17 17:40] LABS: Alanine Aminotransferase 16 U/L (4-35); Albumin Level 4.3 g/dL (3.5-5.1); Alkaline Phosphatase 58 U/L (38-126); Anion Gap 11 mmol/L (8-16); Aspartate Amino Transferase 27 U/L (14-36); Bilirubin,Total 0.9 mg/dL (0.2-1.3); Blood Urea Nitrogen 13 mg/dL (7-17); Calcium 9.6 mg/dL (8.4-10.2); Carbon Dioxide 23 mmol/L (22-30); Chloride 105 mmol/L (98-107); Estimated CRCL calculation 48 ml/min; Estimated Glomerular Filt Rate > 60; Glucose 129 mg/dL (65-110); Potassium 3.9 mmol/L (3.4-5.0); Sodium 139 mmol/L (137-145)
[2021-02-17 17:51] LABS: Troponin I < 0.012 ng/mL (0.000-0.034)
[2021-02-17 18:12] LABS: Prothrombin Time 13.1 Seconds (11.1-14.7)
[2021-02-17 18:13] LABS: Partial Thromboplastin Time 35.6 SECONDS (22.3-36.8)
[2021-02-17] MEDS: SODIUM CHLORIDE 0.9% IV 1,000 ML 999 ML IV CONT (18:17)
[2021-02-17 18:28] LABS: Add Urine Microscopic? YES; Appearance Urine Cloudy (Clear); Bacteria Urine 1+ /hpf; Bilirubin Urine Negative (Negative); Blood Urine 1+ (Negative); Color Urine Amber (Yellow); Glucose Urine UA Negative (Negative); Ketones Urine Negative (Negative); Leukocyte Esterase Ur 3+ LEU/UL (Negative); Mucus Urine Rare /lpf; Nitrate Urine Positive (Negative); Protein Urine 1+ mg/dL (Negative); Specific Grav Ur 1.017 (1.001-1.035); Squamous Epithelial Cell Urine Many /hpf (Few); Urobilinogen Urine Negative mg/dL (<2.0); WBC Urine >75 /hpf
[2021-02-17 21:02] LABS: Troponin I < 0.012 ng/mL (0.000-0.034)
== END 2021-02-17 21:42 | disposition home or self-care (01) ==
PROVIDERS: Emergency Provider Emergency Medicine; PCP Internal Medicine Geriatric Medicine
DX: R55 Syncope and collapse (principal); N39.0 Urinary tract infection, site not specified; I25.10 Atherosclerotic heart disease of native coronary artery without angina pectoris; I10 Essential (primary) hypertension
CPT/HCPCS: 36415; 70450; 71045; 80053; 81001; 84484; 85025; 85055; 85610; 85730; 87077; 87086; 87186; 93005; 96361; 96365; 99284; J0696; J7030

== ENCOUNTER 2021-06-12 16:50 | Emergency (ER) | payer MEDICARE, SELFPAY ==
[2021-06-12] VITALS (8 sets, daily range): BP systolic 130–188; BP diastolic 56–69; PULSE 48–90; RESP 18–20; TEMP 36.4–36.6; O2SAT 99–100
--- NOTE | ~2021-06-12 | XR_ITS ---
EXAMINATION: XR chest 1V portable EXAM DATE: 06/12/2021 17:15 INDICATION: Near syncope TODAY , HX CABG, HX HTN . TECHNIQUE: Portable AP frontal chest x-ray was obtained. Comparison is made to prior examination from 02/17/2021. FINDINGS: Sternotomy wires are present without findings to suggest sternal dehiscence. Cardiac silhou ette is enlarged but stable in size compared to prior exam. No confluent consolidation, pneumothorax or pleural effusion suspected. The bones are osteopenic. There are bony degenerative changes. IMPRESSION: Cardiomegaly. Reviewed, dictated and finalized at location A. SPECIAL EDUCATION TEACHER IMPRESSION: Cardiomegaly.
--- NOTE | 2021-06-12 17:04 | ECG_ITS ---
Measurements Intervals [place] Rate: 50 P: 32 SD: 178 QRS: 11 QRSD: 92 T: 101 QT: 441 QTc: 402 Interpretive Statements SINUS BRADYCARDIA PROBABLE INFERIOR MYOCARDIAL INFARCTION , PROBABLY OLD T-WAVE ABNORMALITY, CONSIDER CONSIDER ISCHEMIA COMPARED TO ECG 02/17/2021 17:34:14 NO SIGNIFICANT CHANGES Electronically Signed On 06-13-2021 9:43:00 BOILER WATER TESTER by Terell Haile M.D.
--- NOTE | 2021-06-12 17:06 | ED.DIZZY ---
HPI - Dizziness General Chief Complaint: Dizziness Stated Complaint: dizzy with syncope Time Seen by Provider: 06/12/21 16:52 Source: patient, EMS and RN notes reviewed Mode of arrival: EMS Limitations: no limitations History of Present Illness HPI Narrative: Patient is 81 years old white female presents to the ED by ambulance because of sudden onset of dizziness/near syncope. Patient was first with her at the memory care unit, went to the bathroom, after finishing stood up and developed sudden onset of dizziness and feeling she is going to blackout. Patient sat down slowly to the floor. Denies loss of consciousness, or any injury. Currently patient main complaint is feeling weak. Patient reports having similar symptoms since he been 7 years old. And usually gets blackout during these episodes. This time, she did not.. Patient reports some time when she have urinary tract infection she gets similar symptom. Patient denies any fever, chills, nausea, vomiting, chest pain, shortness of breath, back pain, headache or abdominal pain. Related Data Allergies Allergy/AdvReac Type Severity Reaction Status Date / Time No Known Allergies Allergy Verified 03/21/20 11:21 [facility] Past Medical History Medical History (Updated 06/12/21 @ 19:08 by Peng Lin MD) CAD (coronary artery disease) HTN (hypertension), benign Social History Social History (Updated 02/17/21 @ 17:19 by Derek Forrest DO) Smoking status: Never smoker Gender identity (if verbalized by the patient): Female Course Course Emergency Course: Patient was able to get out of bed and go to the bathroom, after a while was not able to have a bowel movement, constipation is a possibility. Patient denies any fever, chills, nausea, vomiting, abdominal pain. Work-up showed urinary tract infection otherwise no significant findings to explain patient dizziness which she had since she was 7 years old. The plan to start Rocephin 1 g IV then discharge patient on Macrobid. Vital Signs Vital signs: Vital Signs Temperature 36.4 C 06/12/21 16:45 Pulse Rate 50 L 06/12/21 16:45 Respiratory Rate 18 06/12/21 16:45 Blood Pressure 140/63 06/12/21 16:45 Pulse Oximetry 99 06/12/21 16:45 Temperature 36.4 C 06/12/21 16:45 Pulse Rate 55 L 06/12/21 17:23 Respiratory Rate 18 06/12/21 16:45 Blood Pressure 130/56 L 06/12/21 17:23 Pulse Oximetry 99 06/12/21 16:45 MDM - Dizziness Lab Data Result diagrams: 06/12/21 17:15 06/12/21 17:15 Labs: Lab Results 06/12/21 06/12/21 Range/Units 17:15 17:15 WBC 6.4 (4.5-10.0) K/mm3 RBC 4.21 (4.2-5.4) M/mm3 Hgb 12.5 (12.0-15.0) g/dL Hct 37.8 (37.0-47.0) % MCV 89.8 (80-100) fl MCH 29.7 (26-34) pg MCHC 33.1 (32-36) g/dl RDW 13.7 (11.5-14.5) % Plt Count 186 (150-375) k/mm3 MPV 11.2 H (7.4-10.4) fl Immature Gran % (Auto) 0.2 (0-0.5) % Neut % (Auto) 72.6 (45.5-73.1) % Lymph % (Auto) 17.6 L (18.3-44.2) % [place] % (Auto) 6.1 (2.6-8.5) % Eos % (Auto) 3.0 (0-4.4) % Baso % (Auto) 0.5 (0.2-1.2) % Lymph # (Auto) 1.12 (0.9-3.2) K/mm3 [place] # (Auto) 0.4 (0.1-0.6) K/mm3 Eos # (Auto) 0.2 (0-0.3) K/mm3 Baso # (Auto) 0.0 (0.0-0.1) K/mm3 Abs Immat Gran (auto) 0.01 (0.00-0.031) K/mm3 Absolute Neuts (auto) 4.6 (1.3-6.7) K/mm3 Absolute Nucleated RBC 0.0 (0.0-0.012) K/mm3 Nucleated RBC % 0.0 (0.0-0.2) % Sodium 138 (137-145) mmol/L Potassium 4.1 (3.4-5.0) mmol/L Chloride 108 H (98-107) mmol/L Carbon Dioxide 27 (22-30) mmol/L Anion Gap 3 L (8-16) mmol/L BUN 11 (7-17) mg/dL Creatinine 1.00 (0.7-1.0) mg/dL Estim Creat Clear Calc 41 ml/min Estimated GFR 53 L (59 - ) Glucose 122 H (65-110) mg/dL Calcium 8.8 (8.4-10.2) mg/dL Total Bilirubin 0.8 (0.2-1.3) mg/dL AST 26 (14-36) U/L ALT 14 (4-35) U/L Alkaline Phosphatase 55 (38-126) U/L Troponin I
[2021-06-12 17:21] LABS: Basophils Percent Auto 0.5 % (0.2-1.2); Eosinophils Absolute Auto 0.2 K/mm3 (0-0.3); Hematocrit 37.8 % (37.0-47.0); Hemoglobin 12.5 g/dL (12.0-15.0); Immature Granulocyte Absolute 0.01 K/mm3 (0.00-0.031); Immature Granulocyte Percent A 0.2 % (0-0.5); Lymphocytes Absolute Auto 1.12 K/mm3 (0.9-3.2); Lymphocytes Percent Auto 17.6 % (18.3-44.2); Mean Corpuscular HGB Conc 33.1 g/dl (32-36); Mean Corpuscular Hemoglobin 29.7 pg (26-34); Mean Corpuscular Volume 89.8 fl (80-100); Mean Platelet Volume 11.2 fl (7.4-10.4); Monocytes Absolute Auto 0.4 K/mm3 (0.1-0.6); Monocytes Percent Auto 6.1 % (2.6-8.5); Neutrophils Absolute Auto 4.6 K/mm3 (1.3-6.7); Neutrophils Percent Auto 72.6 % (45.5-73.1); Platelet Count Result 186 k/mm3 (150-375); Red Blood Count 4.21 M/mm3 (4.2-5.4); Red Cell Distribution Width 13.7 % (11.5-14.5); White Blood Count 6.4 K/mm3 (4.5-10.0)
[2021-06-12 17:42] LABS: Alanine Aminotransferase 14 U/L (4-35); Albumin Level 3.7 g/dL (3.5-5.1); Alkaline Phosphatase 55 U/L (38-126); Anion Gap 3 mmol/L (8-16); Aspartate Amino Transferase 26 U/L (14-36); Bilirubin,Total 0.8 mg/dL (0.2-1.3); Blood Urea Nitrogen 11 mg/dL (7-17); Calcium 8.8 mg/dL (8.4-10.2); Carbon Dioxide 27 mmol/L (22-30); Chloride 108 mmol/L (98-107); Estimated CRCL calculation 41 ml/min; Estimated Glomerular Filt Rate 53; Glucose 122 mg/dL (65-110); Potassium 4.1 mmol/L (3.4-5.0); Sodium 138 mmol/L (137-145)
[2021-06-12 17:53] LABS: Troponin I < 0.012 ng/mL (0.000-0.034)
[2021-06-12 18:49] LABS: Add Urine Microscopic? YES; Appearance Urine Clear (Clear); Bilirubin Urine Negative (Negative); Blood Urine Negative (Negative); Color Urine Amber (Yellow); Glucose Urine UA Negative (Negative); Ketones Urine Negative (Negative); Leukocyte Esterase Ur Negative LEU/UL (Negative); Mucus Urine Rare /lpf; Nitrate Urine Positive (Negative); Protein Urine Negative (Negative); RBC Urine 0-2 /hpf (0-2); Specific Grav Ur 1.011 (1.001-1.035); Squamous Epithelial Cell Urine Rare /hpf (Few); WBC Urine 0-3 /hpf
--- NOTE | 2021-06-16 08:33 | PC.NURSE ---
LATE ENTRY This note is being entered to document information to the patient's record. The following information was omitted on [06/12/21], by [Manuel CARLSON Stop time for Rocephin is at 1999, 50 ml infused].
== END 2021-06-12 20:42 | disposition home or self-care (01) ==
PROVIDERS: Emergency Provider Emergency Medicine; PCP Internal Medicine Geriatric Medicine
DX: N39.0 Urinary tract infection, site not specified (principal); R42 Dizziness and giddiness; I10 Essential (primary) hypertension; I25.10 Atherosclerotic heart disease of native coronary artery without angina pectoris; I51.7 Cardiomegaly; R00.1 Bradycardia, unspecified; R94.31 Abnormal electrocardiogram [ECG] [EKG]
CPT/HCPCS: 36415; 51701; 71045; 80053; 81001; 84484; 85025; 93005; 96365; 99284; J0696

== ENCOUNTER 2021-08-03 09:43 | Inpatient (IN) | payer MEDICARE, SELFPAY ==
[2021-08-03] VITALS (42 sets, daily range): BP systolic 115–150; BP diastolic 41–105; PULSE 56–75; RESP 13–24; TEMP 36.3–36.6; O2SAT 91–99
--- NOTE | ~2021-08-03 | CT_ITS ---
EXAMINATION: CT abdomen pelvis w con DATE: 08/03/2021 12:32 INDICATION: Left lower quadrant abdominal pain. TECHNIQUE: Computed tomography (CT) of the abdomen and pelvis was performed with 100 mL Omnipaque 350 intravenous contrast. Automated exposure control and iterative reconstruction technique were employe d. The dose-length product was 782.72 mGy-cm. COMPARISON: CT abdomen and pelvis 08/07/2018 FINDINGS: The visualized portions of the lung bases demonstrate mild atelectasis. No pleural effusion . Cardiomegaly is noted. There are coronary artery calcifications. No pericardial effusion. There is a small sliding hiatal hernia. There are cysts in the liver measuring up to 18 mm. The gallbladder is absent. The spleen, pancreas, adrenal glands, and kidneys are normal. There are scattered diverticul a in the colon. There is fat stranding around a diverticulum of sigmoid colon with local bowel wall t hickening, consistent with diverticulitis. There are changes of ventral hernia repair. There is a arminda tral hernia containing fat superior to the mesh. The appendix is not visualized. There are no patholo gically enlarged lymph nodes. There is trace ascites. There is severe lumbar spondylosis and moderate thoracic spondylosis. IMPRESSION: 1. Acute sigmoid diverticulitis. No perforation or abscess. 2. Small sliding hiatal hernia. Reviewed, dictated and finalized at location A.
--- NOTE | ~2021-08-03 | CT_ITS ---
EXAMINATION: CT brain wo con DATE: 08/03/2021 11:22 INDICATION: Dizziness TECHNIQUE: Computed tomography (CT) of the head was performed without intravenous contrast. The mA wa s adjusted according to patient size. Iterative reconstruction technique was employed. Exam dose: 60 5.33 mGy-cm total exam DLP. COMPARISON: 02/17/2021 CT brain 09/06/2019 CT brain FINDINGS: Right vertebral artery and bilateral carotid siphon and supraclinoid internal carotid arter y calcifications. There is nonspecific diminished attenuation of the cerebral white matter, likely due to chronic small vessel ischemic changes. No intracranial mass lesion or hemorrhage or cerebrovascular accident. No midline shift or mass effec t. No subdural or epidural hematoma. Normal ventricular size. The mastoid air cells and paranasal sinuses are unremarkable. No fracture or bone destruction of the cranial vault. IMPRESSION: Cerebral atherosclerosis and chronic small vessel ischemic changes of cerebral white dedrick er No acute intracranial finding Reviewed, dictated and finalized at Location [facility]. Reviewed, dictated and finalized at location A. IMPRESSION: Cerebral atherosclerosis and chronic small vessel ischemic changes of cerebral white matter No acute intracranial finding
--- NOTE | ~2021-08-03 | XR_ITS ---
XR chest 2V DATE: 08/03/2021 11:42 INDICATION: Cough TECHNIQUE: AP and lateral views COMPARISON: 06/12/2021 portable AP chest FINDINGS: Status post sternotomy. Heart size is mildly enlarged. There is aortic calcification. No hilar or mediastinal enlargement. No pulmonary infiltrate or consolidation, pulmonary vascular stacy estion or pleural effusion or pneumothorax. Diffuse osteopenia. IMPRESSION: Status post sternotomy No active cardiopulmonary disease Aortic atherosclerosis Reviewed, dictated and finalized at location A.
--- NOTE | 2021-08-03 09:45 | ECG_ITS ---
Measurements Intervals [place] Rate: 66 P: 31 SD: 148 QRS: -1 QRSD: 84 T: 78 QT: 394 QTc: 413 Interpretive Statements SINUS RHYTHM NONSPECIFIC ST & T-WAVE ABNORMALITY COMPARED TO ECG 09/07/2019 18:04:56 SINUS RHYTHM NOW PRESENT Electronically Signed On 08-03-2021 20:51:50 CDT by Debra Louis M.D.
[2021-08-03 11:25] LABS: Basophils Percent Auto 0.2 % (0.2-1.2); Eosinophils Percent Auto 0.2 % (0-4.4); Hematocrit 38.8 % (37.0-47.0); Hemoglobin 13.1 g/dL (12.0-15.0); Immature Granulocyte Absolute 0.07 K/mm3 (0.00-0.031); Immature Granulocyte Percent A 0.4 % (0-0.5); Lymphocytes Absolute Auto 1.05 K/mm3 (0.9-3.2); Lymphocytes Percent Auto 6.6 % (18.3-44.2); Mean Corpuscular HGB Conc 33.8 g/dl (32-36); Mean Platelet Volume 11.7 fl (7.4-10.4); Monocytes Absolute Auto 0.9 K/mm3 (0.1-0.6); Monocytes Percent Auto 5.7 % (2.6-8.5); Neutrophils Absolute Auto 13.8 K/mm3 (1.3-6.7); Neutrophils Percent Auto 86.9 % (45.5-73.1); Platelet Count Result 203 k/mm3 (150-375); Red Blood Count 4.51 M/mm3 (4.2-5.4); Red Cell Distribution Width 14.3 % (11.5-14.5); White Blood Count 15.9 K/mm3 (4.5-10.0)
--- NOTE | 2021-08-03 11:26 | ED.DIZZY ---
HPI - Dizziness General Chief Complaint: Dizziness Stated Complaint: dizzy, feeling faint Time Seen by Provider: 08/03/21 11:09 Source: patient Mode of arrival: ambulatory Limitations: no limitations History of Present Illness HPI Narrative: Patient is a 81-year-old female complaining of dizziness accompanied by chills and night sweats last night but now resolved. Patient also complained of left lower quadrant pain, sharp, 3 out of 10, nonradiating started today. Patient states that usually when she gets these symptoms is because of a urinary tract infection. Patient currently does not have any symptoms. Patient denies any dizziness, headache, speech or visual disturbance, focal weakness or numbness, unsteady gait, chest pain, shortness of breath, nausea, vomiting, diarrhea, fever or chills. Related Data Home Medications Medication Instructions Recorded Confirmed amlodipine 5 mg PO DAILY 09/04/19 09/04/19 cetirizine 5 mg PO DAILY 09/04/19 09/04/19 hydrochlorothiazide 12.5 mg PO DAILY 09/04/19 09/04/19 lisinopril 20 mg PO DAILY 09/04/19 09/04/19 omeprazole 20 mg PO DAILY 09/04/19 09/04/19 sertraline 100 mg PO DAILY 09/04/19 09/04/19 Allergies Allergy/AdvReac Type Severity Reaction Status Date / Time [id number] Reductase Allergy Mild hives Verified 08/03/21 13:50 Inhibitor [Oxtyaxu-Mho-Vfx Reductase Inhibitor] Sulfa (Sulfonamide Allergy Unknown Unknown Verified 08/03/21 13:50 Antibiotics) Review of Systems Review of Systems: All systems reviewed & are unremarkable except as noted in HPI and below Constitutional: Constitutional: Denies body ache(s), Denies chills, Denies excessive sweating, Denies fatigue, Denies fever(s), Denies headache(s), Denies lethargy, Denies malaise, Denies weakness and Denies weight loss Eyes: Eyes: Denies blurry vision, Denies change in vision and Denies loss of vision ENT: Denies dizziness, Denies ear discharge, Denies headache(s), Denies lip swelling, Denies epistaxis, Denies nasal congestion, Denies neck pain, Denies throat swelling and Denies tongue swelling Cardiovascular: Cardiovascular: Denies chest pain, Denies chest pain at rest, Denies chest pain with activity, Denies diaphoresis, Denies rapid heart rate, Denies edema, Denies irregular heart rhythm, Denies lightheadedness, Denies palpitations, Denies dyspnea and Denies dyspnea on exertion Respiratory: Respiratory: Denies chest congestion, Denies cough, Denies hemoptysis, Denies dyspnea and Denies dyspnea on exertion Gastrointestinal: Gastrointestinal: Denies abdominal pain, Denies melena, Denies hematochezia, Denies diarrhea, Denies nausea, Denies vomiting and Denies hematemesis Musculoskeletal: Musculoskeletal: Denies abnormal gait, Denies deformity, Denies joint swelling, Denies limited range of motion, Denies neck pain and Denies numbness Neurologic: Denies Abnormal speech present, Denies abnormal gait, Denies confusion, Denies headache(s), Denies focal weakness, Denies loss of vision, Denies numbness, Denies Other visual disturbances, Denies Sensory deficit (Neuro) and Denies weakness Psychiatric: Psychiatric: Denies confusion, Denies depression, Denies auditory hallucinations, Denies homicidal ideation and Denies suicidal ideation Endocrine: Endocrine: Denies cold intolerance, Denies excessive sweating, Denies fatigue, Denies heat intolerance and Denies palpitations Hematologic/Lymphatic: Hematologic/Lymphatic: Denies easy bleeding and Denies easy bruising Allergic/Immunologic: Allergic/Immunologic: Denies lip swelling, Denies throat swelling and Denies tongue swelling [facility] Past Medical History Medical History (Updated 08/03/21 @ 14:20 by Derek Ramos MD) CAD (coronary artery disease) Chronic anemia Chronic kidney disease, stage 3 Coronary artery disease With history of stent. Essential hypertension HTN (hypertension), benign Hypothyroidism Paroxysmal atrial fibrillation Transient ischemic marcia
[2021-08-03 11:35] LABS: Anion Gap 9 mmol/L (8-16); Blood Urea Nitrogen 12 mg/dL (7-17); Calcium 9.2 mg/dL (8.4-10.2); Carbon Dioxide 25 mmol/L (22-30); Chloride 102 mmol/L (98-107); Estimated CRCL calculation 42 ml/min; Estimated Glomerular Filt Rate 53; Glucose 155 mg/dL (65-110); Potassium 3.9 mmol/L (3.4-5.0); Sodium 136 mmol/L (137-145)
[2021-08-03] MEDS: SODIUM CHLORIDE 0.9% IV 1,000 ML 999 ML IV CONT (11:45)
[2021-08-03 11:47] LABS: Troponin I < 0.012 ng/mL (0.000-0.034)
[2021-08-03 12:12] LABS: Add Urine Microscopic? YES; Appearance Urine Clear (Clear); Bilirubin Urine Negative (Negative); Blood Urine Negative (Negative); Color Urine Amber (Yellow); Glucose Urine UA Negative (Negative); Ketones Urine Negative (Negative); Leukocyte Esterase Ur Negative LEU/UL (Negative); Mucus Urine Rare /lpf; Nitrate Urine Positive (Negative); Protein Urine Negative (Negative); Specific Grav Ur 1.016 (1.001-1.035); Squamous Epithelial Cell Urine Occasional /hpf (Few)
[2021-08-03] MEDS: metroNIDAZOLE 500 MG/ISO 100ML 500 MG/100 ML BAG 100 MG IVPB (14:10)
--- NOTE | 2021-08-03 17:01 | PC.NURSE ---
Patient transported via tech ed teacher to room 341. Transferred with all belongings.VSS at time of transfer.
--- NOTE | 2021-08-03 17:22 | ADMGEN ---
This patient, Joanne Newman, was admitted to Medical Room 341-01. Patient/family oriented to hospital policies and general routines including ID bracelet, bed and alarms, visiting hours, pain management, procedures, bathroom and other care routines, personal items, smoking policy, room service/diet, and visiting hours. Information on how to activate the Rapid Response Team has been discussed. Patient/Family are encouraged to report perceived risks to care and to ask questions if they do not understand what they are told or what they should do.
[2021-08-03] MEDS: LACTATED RINGERS 1,000 ML 90 ML IV CONT (17:47)
--- NOTE | 2021-08-03 18:00 | PM.IMHP ---
H&P: HPI History of Present Illness Date/Time: 08/03/21 18:00 Chief Complaint: Dizziness, sweats, abdominal discomfort. Narrative: This is a very pleasant 81-year-old female with history of hypertension, coronary artery disease, GERD, and urinary tract infections who presented to the emergency department with complaints of dizziness/lightheadedness on standing (not necessarily unusual for her), sweats, and abdominal discomfort. She has not felt well for approximately 2 days with symptoms to include generalized malaise, aching discomfort in the left lower quadrant and suprapubic region, dysuria, loose stools, chills, and sweats. CT of the abdomen and pelvis showed findings consistent with acute sigmoid diverticulitis and she does endorse a history of the same. Her urine was also positive for nitrates and 10 to 15 wbc's though was negative for leukocyte esterase. She is being admitted in this setting. At the time evaluation she is resting comfortably and has no specific complaints aside from those listed above. She denies headache, vertigo, focal weakness, paresthesias, sinus congestion, rhinorrhea, otalgia, odynophagia, chest pain, pleuritic pain, cough, and vomiting. Review of Systems Review of Systems: Twelve systems were reviewed and are negative except for as per HPI. [facility] Past Medical History Medical History (Updated 08/03/21 @ 23:29 by Angela Thapa PA-C) Chronic anemia Chronic kidney disease, stage 3 Coronary artery disease With history of stent. Essential hypertension Hypothyroidism Paroxysmal atrial fibrillation Transient ischemic attack (~2009) Surgical History Surgical History History of appendectomy History of bladder suspension procedure History of cholecystectomy History of coronary artery bypass graft History of heart artery stent Family History Family History Mother Hypothyroid Heart attack Hypertension Sibling Hypothyroid Father Heart attack Hypertension Social History Social History (Updated 08/03/21 @ 23:25 by Angela Thapa PA-C) Social History: The patient is and lives in independent living at [facility]. He is in the nursing due to his dementia. She denies alcohol, tobacco, and drug use. She designates her son, Cayden Newman, as her surrogate decision maker and she wishes to be a full code. Spiritual care concerns: No Meds Home Medications and Allergies Home Medications Medication Instructions Recorded Confirmed Type amlodipine 5 mg PO DAILY 09/04/19 08/03/21 History cetirizine 5 mg PO DAILY 09/04/19 08/03/21 History hydrochlorothiazide 12.5 mg PO DAILY 09/04/19 08/03/21 History lisinopril 20 mg PO DAILY 09/04/19 08/03/21 History omeprazole 20 mg PO DAILY 09/04/19 08/03/21 History sertraline 100 mg PO DAILY 09/04/19 08/03/21 History meclizine 12.5 mg PO TID PRN #30 tablet 03/21/20 08/03/21 Rx Allergies Allergy/AdvReac Type Severity Reaction Status Date / Time Jnvmpou-ADM-TtO Reductase Allergy Mild hives Verified 08/03/21 13:50 Inhibitor [Tjgqctu-Xuh-Gfk Reductase Inhibitor] Sulfa (Sulfonamide Allergy Unknown Unknown Verified 08/03/21 13:50 Antibiotics) Vital Signs Vital Signs - 24 hr 08/03/21 09:51 08/03/21 11:05 08/03/21 11:07 Temperature 97.3 F L Pulse Rate 71 62 60 Respiratory Rate 16 19 13 Blood Pressure 123/41 L 137/50 L Pulse Oximetry 97 96 97 08/03/21 11:08 08/03/21 11:23 08/03/21 11:24 Temperature Pulse Rate 62 64 62 Respiratory Rate 13 18 15 Blood Pressure 134/53 L Pulse Oximetry 97 96 97 08/03/21 11:30 08/03/21 11:31 08/03/21 11:43 Temperature Pulse Rate 61 63 62 Respiratory Rate 19 21 H 13 Blood Pressure 128/53 L 134/48 L Pulse Oximetry 94 94 93 08/03/21 11:45 08/03/21 11:46 08/03/21 12:02 Temperature Pulse Rate 64 63 64 Respiratory Rate 15 16 19 Blood Pres
[2021-08-04] VITALS (7 sets, daily range): BP systolic 124–176; BP diastolic 50–63; PULSE 58–63; RESP 16–20; TEMP 36.6–36.8; O2SAT 97–99
[2021-08-04] MEDS: LACTATED RINGERS 1,000 ML 80 ML IV CONT (05:10)
[2021-08-04 05:50] LABS: Hematocrit 33.9 % (37.0-47.0); Hemoglobin 11.2 g/dL (12.0-15.0); Mean Corpuscular Hemoglobin 28.9 pg (26-34); Mean Corpuscular Volume 87.6 fl (80-100); Mean Platelet Volume 11.4 fl (7.4-10.4); Platelet Count Result 166 k/mm3 (150-375); Red Blood Count 3.87 M/mm3 (4.2-5.4); Red Cell Distribution Width 14.1 % (11.5-14.5); White Blood Count 7.7 K/mm3 (4.5-10.0)
[2021-08-04 06:05] LABS: Anion Gap 4 mmol/L (8-16); Blood Urea Nitrogen 8 mg/dL (7-17); Calcium 8.5 mg/dL (8.4-10.2); Carbon Dioxide 25 mmol/L (22-30); Chloride 108 mmol/L (98-107); Estimated CRCL calculation 52 ml/min; Estimated Glomerular Filt Rate > 60; Glucose 101 mg/dL (65-110); Potassium 3.6 mmol/L (3.4-5.0); Sodium 137 mmol/L (137-145)
[2021-08-04 06:41] LABS: Thyroid Stimulating Hormone Reflex 0.757 uIU/mL (0.465-4.68)
[2021-08-04] MEDS: amLODIPine BESYLATE 5 MG TABLET PO (08:57)
[2021-08-04] MEDS: lisinopriL 20 MG TABLET PO (08:57)
[2021-08-04] MEDS: PANTOPRAZOLE 40 MG TABLET PO (08:57)
[2021-08-04] MEDS: LORATADINE 5 MG TABLET PO (08:57)
[2021-08-04] MEDS: hydroCHLOROthiazide 12.5 MG CAPSULE PO (08:57)
[2021-08-04] MEDS: SERTRALINE HCL 50 MG TABLET 100 MG PO (08:58)
[2021-08-04] MEDS: ENOXAPARIN 40 MG/0.4 ML SYRINGE SUB-Q (08:58)
--- NOTE | 2021-08-04 15:31 | PM.IMPN ---
Progress Note: A&P Assessment and Plan (1) Sigmoid diverticulitis: Code(s): K57.32 - Diverticulitis of large intestine without perforation or abscess without bleeding Status: Acute Assessment and Plan: Patient has been started on Zosyn for findings of acute sigmoid diverticulitis per antibiotic stewardship recommendations. NPO for now though would consider trying a clear liquid diet tomorrow. 08/04/2021 interval history: patient with left lower quadrant abdominal pain is found to have sigmoid diverticulitis patient was started on Zosyn, patient states abdominal pain is better is able to tolerate clear liquid, denies any nausea or vomiting will continue to monitor advanced diet as tolerated and further recommendation to follow. (2) Abnormal urinalysis: Code(s): R82.90 - Unspecified abnormal findings in urine Status: Acute Assessment and Plan: Currently on Zosyn for the above, pending urine culture. (3) Essential hypertension: Code(s): I10 - Essential (primary) hypertension Status: Acute Assessment and Plan: Blood pressures were reviewed and they are reasonably well controlled. Continue antihypertensives and monitor. (4) Chronic kidney disease, stage 3: Code(s): N18.3 - Chronic kidney disease, stage 3 (moderate) Status: Acute Assessment and Plan: Kidney function is stable on review of previous labs. (5) Hypothyroidism: Code(s): E03.9 - Hypothyroidism, unspecified Status: Acute Assessment and Plan: Continue levothyroxine and check TSH. (6) Dizziness: Code(s): R42 - Dizziness and giddiness Status: Acute Assessment and Plan: Patient reports intermittent problems with dizziness. Check orthostatic vital signs. Meclizine available as needed. (7) Coronary artery disease: Code(s): I25.10 - Atherosclerotic heart disease of [place] coronary artery without angina pectoris Status: Inactive Assessment and Plan: Status post CABG. No acute issues. Subjective Date/time seen: 08/04/21 15:31 Narrative: This is a very pleasant 81-year-old female with history of hypertension, coronary artery disease, GERD, and urinary tract infections who presented to the emergency department with complaints of dizziness/lightheadedness on standing (not necessarily unusual for her), sweats, and abdominal discomfort. She has not felt well for approximately 2 days with symptoms to include generalized malaise, aching discomfort in the left lower quadrant and suprapubic region, dysuria, loose stools, chills, and sweats. CT of the abdomen and pelvis showed findings consistent with acute sigmoid diverticulitis and she does endorse a history of the same. Her urine was also positive for nitrates and 10 to 15 wbc's though was negative for leukocyte esterase. She is being admitted in this setting. At the time evaluation she is resting comfortably and has no specific complaints aside from those listed above. She denies headache, vertigo, focal weakness, paresthesias, sinus congestion, rhinorrhea, otalgia, odynophagia, chest pain, pleuritic pain, cough, and vomiting. 08/04/2021 interval history: patient with left lower quadrant abdominal pain is found to have sigmoid diverticulitis patient was started on Zosyn, patient states abdominal pain is better is able to tolerate clear liquid, denies any nausea or vomiting will continue to monitor advanced diet as tolerated and further recommendation to follow. Review of Systems Review of Systems: All systems reviewed & are unremarkable except as noted in HPI and below Exam Narrative: Patient is comfortable, NAD HEENT: eyes are clear and none icteric LUNGS: normal respiratory effort ABD: non distended Lower extremities: no edema SKIN: nonjaundiced Neuro: grossly intact. Objective Data Vital Signs Vital Signs: Vital Signs - 24 hr 08/03/21 15:58 08/03/21 16:25
[2021-08-05] MEDS: LACTATED RINGERS 1,000 ML 80 ML IV CONT ×2 (00:25→21:01)
[2021-08-05 04:13] VITALS: O2SAT 97
[2021-08-05 04:25] VITALS: BP 155/58; PULSE 63; RESP 18; TEMP 36.3; O2SAT 63
[2021-08-05 05:55] LABS: Hematocrit 33.5 % (37.0-47.0); Hemoglobin 10.9 g/dL (12.0-15.0); Mean Corpuscular HGB Conc 32.5 g/dl (32-36); Mean Corpuscular Hemoglobin 28.6 pg (26-34); Mean Corpuscular Volume 87.9 fl (80-100); Mean Platelet Volume 11.8 fl (7.4-10.4); Platelet Count Result 184 k/mm3 (150-375); Red Blood Count 3.81 M/mm3 (4.2-5.4); Red Cell Distribution Width 13.7 % (11.5-14.5); White Blood Count 4.9 K/mm3 (4.5-10.0)
[2021-08-05 06:12] LABS: Alanine Aminotransferase 16 U/L (4-35); Albumin Level 3.3 g/dL (3.5-5.1); Alkaline Phosphatase 56 U/L (38-126); Anion Gap 6 mmol/L (8-16); Aspartate Amino Transferase 26 U/L (14-36); Bilirubin,Total 0.7 mg/dL (0.2-1.3); Blood Urea Nitrogen 6 mg/dL (7-17); Calcium 8.8 mg/dL (8.4-10.2); Carbon Dioxide 25 mmol/L (22-30); Chloride 108 mmol/L (98-107); Estimated CRCL calculation 51 ml/min; Estimated Glomerular Filt Rate > 60; Glucose 95 mg/dL (65-110); Magnesium 1.9 mg/dL (1.6-2.3); Potassium 3.5 mmol/L (3.4-5.0); Sodium 139 mmol/L (137-145)
[2021-08-05] MEDS: amLODIPine BESYLATE 5 MG TABLET PO (08:01)
[2021-08-05] MEDS: lisinopriL 20 MG TABLET PO (08:02)
[2021-08-05] MEDS: hydroCHLOROthiazide 12.5 MG CAPSULE PO (08:02)
[2021-08-05] MEDS: ENOXAPARIN 40 MG/0.4 ML SYRINGE SUB-Q (08:02)
[2021-08-05] MEDS: SERTRALINE HCL 50 MG TABLET 100 MG PO (08:02)
[2021-08-05] MEDS: LORATADINE 5 MG TABLET PO (08:02)
[2021-08-05] MEDS: PANTOPRAZOLE 40 MG TABLET PO (08:02)
[2021-08-05 11:36] VITALS: BP 146/58; BP 150/68; BP 155/68
[2021-08-05 14:00] VITALS: BP 135/54; PULSE 59; RESP 16; TEMP 36.2; O2SAT 96
--- NOTE | 2021-08-05 15:10 | PM.IMPN ---
Progress Note: A&P Assessment and Plan (1) Sigmoid diverticulitis: Code(s): K57.32 - Diverticulitis of large intestine without perforation or abscess without bleeding Status: Acute Assessment and Plan: Patient has been started on Zosyn for findings of acute sigmoid diverticulitis per antibiotic stewardship recommendations. NPO for now though would consider trying a clear liquid diet tomorrow. 08/04/2021 interval history: patient with left lower quadrant abdominal pain is found to have sigmoid diverticulitis patient was started on Zosyn, patient states abdominal pain is better is able to tolerate clear liquid, denies any nausea or vomiting will continue to monitor advanced diet as tolerated and further recommendation to follow. 08/05/2021 interval history: patient with left lower quadrant abdominal pain is found to have sigmoid diverticulitis patient was started on Zosyn, patient states abdominal pain is better is able to tolerate full liquid diet, will continue and monitor, denies any nausea or vomiting will continue to monitor advanced diet as tolerated and further recommendation to follow. urine culture growing mixed talat, (2) Abnormal urinalysis: Code(s): R82.90 - Unspecified abnormal findings in urine Status: Acute Assessment and Plan: Currently on Zosyn for the above, pending urine culture. (3) Essential hypertension: Code(s): I10 - Essential (primary) hypertension Status: Acute Assessment and Plan: Blood pressures were reviewed and they are reasonably well controlled. Continue antihypertensives and monitor. (4) Chronic kidney disease, stage 3: Code(s): N18.3 - Chronic kidney disease, stage 3 (moderate) Status: Acute Assessment and Plan: Kidney function is stable on review of previous labs. (5) Hypothyroidism: Code(s): E03.9 - Hypothyroidism, unspecified Status: Acute Assessment and Plan: Continue levothyroxine and check TSH. (6) Dizziness: Code(s): R42 - Dizziness and giddiness Status: Acute Assessment and Plan: Patient reports intermittent problems with dizziness. Check orthostatic vital signs. Meclizine available as needed. (7) Coronary artery disease: Code(s): I25.10 - Atherosclerotic heart disease of [place] coronary artery without angina pectoris Status: Inactive Assessment and Plan: Status post CABG. No acute issues. Subjective Date/time seen: 08/05/21 15:10 08/05/2021 interval history: patient with left lower quadrant abdominal pain is found to have sigmoid diverticulitis patient was started on Zosyn, patient states abdominal pain is better is able to tolerate full liquid diet, will continue and monitor, denies any nausea or vomiting will continue to monitor advanced diet as tolerated and further recommendation to follow. urine culture growing mixed talat, Review of Systems Review of Systems: All systems reviewed & are unremarkable except as noted in HPI and below Exam Narrative: Patient is comfortable, NAD HEENT: eyes are clear and none icteric LUNGS: normal respiratory effort ABD: non distended Lower extremities: no edema SKIN: nonjaundiced Neuro: grossly intact. Objective Data Vital Signs Vital Signs: Vital Signs - 24 hr 08/04/21 19:43 08/04/21 19:45 08/04/21 19:49 Temperature 97.9 F Pulse Rate 62 Respiratory Rate 16 Blood Pressure 155/58 H 144/58 H 124/60 Pulse Oximetry 99 08/05/21 04:13 08/05/21 04:25 08/05/21 11:36 Temperature 97.4 F L Pulse Rate 63 Respiratory Rate 18 Blood Pressure 155/58 H 155/68 H Pulse Oximetry 97 63 L 08/05/21 14:00 Temperature 97.1 F L Pulse Rate 59 L Respiratory Rate 16 Blood Pressure 135/54 L Pulse Oximetry 96 Intake/Output Intake/Output: Intake & Output 08/02/21 08/03/21 08/04/21 08/05/21 23:59 23:59 23:59 23:59 Intake Total 1600 2600 2080 Outp
[2021-08-05 22:00] VITALS: BP 201/62; PULSE 62; RESP 18; TEMP 36.1; O2SAT 95
[2021-08-06] VITALS (7 sets, daily range): BP systolic 139–191; BP diastolic 51–76; PULSE 54–58; RESP 16–18; TEMP 36.5–36.8; O2SAT 97–98
[2021-08-06 05:51] LABS: Hematocrit 34.9 % (37.0-47.0); Hemoglobin 11.6 g/dL (12.0-15.0); Mean Corpuscular HGB Conc 33.2 g/dl (32-36); Mean Corpuscular Hemoglobin 28.6 pg (26-34); Mean Corpuscular Volume 86.2 fl (80-100); Mean Platelet Volume 11.1 fl (7.4-10.4); Platelet Count Result 224 k/mm3 (150-375); Red Blood Count 4.05 M/mm3 (4.2-5.4); Red Cell Distribution Width 13.5 % (11.5-14.5); White Blood Count 4.3 K/mm3 (4.5-10.0)
[2021-08-06 06:04] LABS: Alanine Aminotransferase 15 U/L (4-35); Albumin Level 3.4 g/dL (3.5-5.1); Alkaline Phosphatase 55 U/L (38-126); Anion Gap 4 mmol/L (8-16); Aspartate Amino Transferase 27 U/L (14-36); Bilirubin,Total 0.7 mg/dL (0.2-1.3); Blood Urea Nitrogen 5 mg/dL (7-17); Calcium 8.9 mg/dL (8.4-10.2); Carbon Dioxide 28 mmol/L (22-30); Chloride 107 mmol/L (98-107); Estimated CRCL calculation 51 ml/min; Estimated Glomerular Filt Rate > 60; Glucose 91 mg/dL (65-110); Magnesium 1.9 mg/dL (1.6-2.3); Potassium 3.3 mmol/L (3.4-5.0); Sodium 139 mmol/L (137-145)
[2021-08-06] MEDS: POTASSIUM CHLORIDE 20 MEQ PACKET (FOR LIQUID) 40 MEQ PO (09:36)
[2021-08-06] MEDS: LORATADINE 5 MG TABLET PO (09:37)
[2021-08-06] MEDS: ENOXAPARIN 40 MG/0.4 ML SYRINGE SUB-Q (09:37)
[2021-08-06] MEDS: PANTOPRAZOLE 40 MG TABLET PO (09:37)
[2021-08-06] MEDS: hydroCHLOROthiazide 12.5 MG CAPSULE PO (09:37)
[2021-08-06] MEDS: amLODIPine BESYLATE 5 MG TABLET PO (09:37)
[2021-08-06] MEDS: lisinopriL 20 MG TABLET PO (09:37)
[2021-08-06] MEDS: SERTRALINE HCL 50 MG TABLET 100 MG PO (09:37)
--- NOTE | 2021-08-06 14:14 | PM.IMPN ---
Progress Note: A&P Assessment and Plan (1) Sigmoid diverticulitis: Code(s): K57.32 - Diverticulitis of large intestine without perforation or abscess without bleeding Status: Acute Assessment and Plan: Patient has been started on Zosyn for findings of acute sigmoid diverticulitis per antibiotic stewardship recommendations. NPO for now though would consider trying a clear liquid diet tomorrow. 08/04/2021 interval history: patient with left lower quadrant abdominal pain is found to have sigmoid diverticulitis patient was started on Zosyn, patient states abdominal pain is better is able to tolerate clear liquid, denies any nausea or vomiting will continue to monitor advanced diet as tolerated and further recommendation to follow. 08/05/2021 interval history: patient with left lower quadrant abdominal pain is found to have sigmoid diverticulitis patient was started on Zosyn, patient states abdominal pain is better is able to tolerate full liquid diet, will continue and monitor, denies any nausea or vomiting will continue to monitor advanced diet as tolerated and further recommendation to follow. urine culture growing mixed talat. 08/06/2021 interval history: patient with left lower quadrant abdominal pain is found to have sigmoid diverticulitis patient was started on Zosyn, patient states abdominal pain is better is able to tolerate full liquid diet, will advanced her diet to low-fiber low fat, will continue and monitor, denies any nausea or vomiting will continue to monitor advanced diet as tolerated and further recommendation to follow. urine culture growing mixed talat, possibly discharge patient home tomorrow. (2) Abnormal urinalysis: Code(s): R82.90 - Unspecified abnormal findings in urine Status: Acute Assessment and Plan: Currently on Zosyn for the above, pending urine culture. (3) Essential hypertension: Code(s): I10 - Essential (primary) hypertension Status: Acute Assessment and Plan: Blood pressures were reviewed and they are reasonably well controlled. Continue antihypertensives and monitor. (4) Chronic kidney disease, stage 3: Code(s): N18.3 - Chronic kidney disease, stage 3 (moderate) Status: Acute Assessment and Plan: Kidney function is stable on review of previous labs. (5) Hypothyroidism: Code(s): E03.9 - Hypothyroidism, unspecified Status: Acute Assessment and Plan: Continue levothyroxine and check TSH. (6) Dizziness: Code(s): R42 - Dizziness and giddiness Status: Acute Assessment and Plan: Patient reports intermittent problems with dizziness. Check orthostatic vital signs. Meclizine available as needed. (7) Coronary artery disease: Code(s): I25.10 - Atherosclerotic heart disease of [place] coronary artery without angina pectoris Status: Inactive Assessment and Plan: Status post CABG. No acute issues. Subjective Date/time seen: 08/06/21 14:14 08/06/2021 interval history: patient with left lower quadrant abdominal pain is found to have sigmoid diverticulitis patient was started on Zosyn, patient states abdominal pain is better is able to tolerate full liquid diet, will advanced her diet to low-fiber low fat, will continue and monitor, denies any nausea or vomiting will continue to monitor advanced diet as tolerated and further recommendation to follow. urine culture growing mixed talat, possibly discharge patient home tomorrow. Review of Systems Review of Systems: All systems reviewed & are unremarkable except as noted in HPI and below Exam Narrative: Patient is comfortable, NAD HEENT: eyes are clear and none icteric LUNGS: normal respiratory effort ABD: non distended Lower extremities: no edema SKIN: nonjaundiced Neuro: grossly intact. Objective Data Vital Signs Vital Signs: Vital Signs - 24 hr 08/05/21 22:00 08/06/21 00:07
[2021-08-07 05:00] VITALS: BP 170/59
[2021-08-07 05:04] VITALS: BP 140/68; PULSE 52; RESP 16; TEMP 36.5; O2SAT 93
[2021-08-07 05:07] VITALS: BP 138/61
[2021-08-07 05:47] LABS: Hematocrit 35.6 % (37.0-47.0); Hemoglobin 11.7 g/dL (12.0-15.0); Mean Corpuscular HGB Conc 32.9 g/dl (32-36); Mean Corpuscular Hemoglobin 28.5 pg (26-34); Mean Corpuscular Volume 86.8 fl (80-100); Mean Platelet Volume 11.4 fl (7.4-10.4); Platelet Count Result 237 k/mm3 (150-375); Red Cell Distribution Width 13.5 % (11.5-14.5)
[2021-08-07 05:59] LABS: Alanine Aminotransferase 19 U/L (4-35); Albumin Level 3.8 g/dL (3.5-5.1); Alkaline Phosphatase 55 U/L (38-126); Anion Gap 7 mmol/L (8-16); Aspartate Amino Transferase 33 U/L (14-36); Bilirubin,Total 0.6 mg/dL (0.2-1.3); Blood Urea Nitrogen 5 mg/dL (7-17); Carbon Dioxide 25 mmol/L (22-30); Chloride 105 mmol/L (98-107); Estimated CRCL calculation 46 ml/min; Estimated Glomerular Filt Rate 60; Glucose 105 mg/dL (65-110); Potassium 3.4 mmol/L (3.4-5.0); Sodium 137 mmol/L (137-145)
[2021-08-07] MEDS: lisinopriL 20 MG TABLET PO (10:43)
[2021-08-07] MEDS: PANTOPRAZOLE 40 MG TABLET PO (10:43)
[2021-08-07] MEDS: SERTRALINE HCL 50 MG TABLET 100 MG PO (10:43)
[2021-08-07] MEDS: LORATADINE 5 MG TABLET PO (10:43)
[2021-08-07] MEDS: amLODIPine BESYLATE 5 MG TABLET PO (10:43)
[2021-08-07] MEDS: hydroCHLOROthiazide 12.5 MG CAPSULE PO (10:43)
[2021-08-07 10:58] VITALS: BP 148/54
[2021-08-07 10:59] VITALS: BP 134/62; BP 137/58
--- NOTE | 2021-08-07 11:31 | PM.DS ---
DS: Admitting Diagnosis Discharge Date 08/07/2021 Admitting Diagnosis Dizziness, sweats, abdominal discomfort. DS: Discharge Diagnosis Discharge Diagnosis (1) Sigmoid diverticulitis: Code(s): K57.32 - Diverticulitis of large intestine without perforation or abscess without bleeding Status: Acute Assessment and Plan: Patient has been started on Zosyn for findings of acute sigmoid diverticulitis per antibiotic stewardship recommendations. NPO for now though would consider trying a clear liquid diet tomorrow. 08/04/2021 interval history: patient with left lower quadrant abdominal pain is found to have sigmoid diverticulitis patient was started on Zosyn, patient states abdominal pain is better is able to tolerate clear liquid, denies any nausea or vomiting will continue to monitor advanced diet as tolerated and further recommendation to follow. 08/05/2021 interval history: patient with left lower quadrant abdominal pain is found to have sigmoid diverticulitis patient was started on Zosyn, patient states abdominal pain is better is able to tolerate full liquid diet, will continue and monitor, denies any nausea or vomiting will continue to monitor advanced diet as tolerated and further recommendation to follow. urine culture growing mixed talat. 08/06/2021 interval history: patient with left lower quadrant abdominal pain is found to have sigmoid diverticulitis patient was started on Zosyn, patient states abdominal pain is better is able to tolerate full liquid diet, will advanced her diet to low-fiber low fat, will continue and monitor, denies any nausea or vomiting will continue to monitor advanced diet as tolerated and further recommendation to follow. urine culture growing mixed talat, possibly discharge patient home tomorrow. (2) Abnormal urinalysis: Code(s): R82.90 - Unspecified abnormal findings in urine Status: Acute Assessment and Plan: Currently on Zosyn for the above, pending urine culture. (3) Essential hypertension: Code(s): I10 - Essential (primary) hypertension Status: Acute Assessment and Plan: Blood pressures were reviewed and they are reasonably well controlled. Continue antihypertensives and monitor. (4) Chronic kidney disease, stage 3: Code(s): N18.3 - Chronic kidney disease, stage 3 (moderate) Status: Acute Assessment and Plan: Kidney function is stable on review of previous labs. (5) Hypothyroidism: Code(s): E03.9 - Hypothyroidism, unspecified Status: Acute Assessment and Plan: Continue levothyroxine and check TSH. (6) Dizziness: Code(s): R42 - Dizziness and giddiness Status: Acute Assessment and Plan: Patient reports intermittent problems with dizziness. Check orthostatic vital signs. Meclizine available as needed. (7) Coronary artery disease: Code(s): I25.10 - Atherosclerotic heart disease of [place] coronary artery without angina pectoris Status: Inactive Assessment and Plan: Status post CABG. No acute issues. DS: Summary Hospital Course Reason for hospitalization: Chief Complaint: Dizziness, sweats, abdominal discomfort. Narrative: This is a very pleasant 81-year-old female with history of hypertension, coronary artery disease, GERD, and urinary tract infections who presented to the emergency department with complaints of dizziness/lightheadedness on standing (not necessarily unusual for her), sweats, and abdominal discomfort. She has not felt well for approximately 2 days with symptoms to include generalized malaise, aching discomfort in the left lower quadrant and suprapubic region, dysuria, loose stools, chills, and sweats. CT of the abdomen and pelvis showed findings consistent with acute sigmoid diverticulitis and she does endorse a history of the same. Her urine was also positive for nitrates and 10 to 15 wbc's though was negative for leukocyte
== END 2021-08-07 12:37 | disposition home or self-care (01) | DRG 392 ==
LOC: ANHED 14:22 → ANH3MED 15:18
PROVIDERS: Physician Assistant; Admitting Provider Internal Medicine; Emergency Provider Emergency Medicine; PCP Internal Medicine Geriatric Medicine; Visit Provider Family Medicine
DX: K57.32 Diverticulitis of large intestine without perforation or abscess without bleeding (principal); R82.90 Unspecified abnormal findings in urine; N18.30 Chronic kidney disease, stage 3 unspecified; I12.9 Hypertensive chronic kidney disease with stage 1 through stage 4 chronic kidney disease, or unspecified chronic kidney disease; E03.9 Hypothyroidism, unspecified; R42 Dizziness and giddiness; I25.10 Atherosclerotic heart disease of native coronary artery without angina pectoris; I48.0 Paroxysmal atrial fibrillation; Z86.73 Personal history of transient ischemic attack (TIA), and cerebral infarction without residual deficits; Z95.5 Presence of coronary angioplasty implant and graft; Z95.1 Presence of aortocoronary bypass graft; Z79.899 Other long term (current) drug therapy; Z82.49 Family history of ischemic heart disease and other diseases of the circulatory system; Z82.3 Family history of stroke
CPT/HCPCS: 36415; 70450; 71046; 74177; 80048; 80053; 81001; 83735; 84443; 84484; 85025; 85027; 87086; 87088; 93005; 96361; 96365; 96366; 96367; 96368; 96372; 99285; A9270; G0378; J0696; J1650; J2543; J7030; J7120; Q9967

== ENCOUNTER 2021-09-19 13:12 | Emergency (ER) | payer MEDICARE, SELFPAY ==
[2021-09-19] VITALS (14 sets, daily range): BP systolic 136–156; BP diastolic 47–66; PULSE 44–54; RESP 12–21; TEMP 36.4; O2SAT 96–100
--- NOTE | ~2021-09-19 | XR_ITS ---
EXAMINATION: XR chest 1V portable DATE: 09/19/2021 13:47 INDICATION: Syncope. TECHNIQUE: A single frontal view of the chest was obtained. COMPARISON: Chest 2 views 08/03/2021 FINDINGS: There is no pneumonia, pleural effusion, or pneumothorax. Cardiomegaly is noted. Median lori rnotomy wires and mediastinal surgical clips are seen, likely from prior coronary artery bypass graft ing. IMPRESSION: 1. Cardiomegaly. Reviewed, dictated and finalized at location B. IMPRESSION: 1. Cardiomegaly.
--- NOTE | 2021-09-19 13:19 | ECG_ITS ---
Measurements Intervals [place] Rate: 45 P: 66 CA: 179 QRS: -3 QRSD: 86 T: 83 QT: 447 QTc: 390 Interpretive Statements SINUS BRADYCARDIA CANNOT RULE OUT INFERIOR MYOCARDIAL INFARCTION ST AND T-WAVE ABNORMALITY IN LATERAL LEADS, CONSIDER ISCHEMIA ABNORMAL ECG Electronically Signed On 09-19-2021 13:40:02 CDT by Melquiades Mohamud M.D.
--- NOTE | 2021-09-19 13:20 | ED.SYNCOPE ---
HPI - Syncope General Chief Complaint: Dizziness Stated Complaint: syncopal episode History of Present Illness HPI narrative: Pt was seated in chair and had brief syncopal episode. Pt denies CP or palpitations. Pt has history of this in the past but never had a formal diagnosis. Pt has not been on event monitor recently. Pt feels fine now. Related Data Home Medications Medication Instructions Recorded Confirmed amlodipine 5 mg tablet 5 mg PO DAILY 09/04/19 08/03/21 cetirizine 10 mg tablet 5 mg PO DAILY 09/04/19 08/03/21 hydrochlorothiazide 12.5 mg capsule 12.5 mg PO DAILY 09/04/19 08/03/21 lisinopril 20 mg tablet 20 mg PO DAILY 09/04/19 08/03/21 omeprazole 20 mg capsule,delayed 20 mg PO DAILY 09/04/19 08/03/21 release sertraline 100 mg tablet 100 mg PO DAILY 09/04/19 08/03/21 Allergies Allergy/AdvReac Type Severity Reaction Status Date / Time Felsrso-IDG-CxB Reductase Allergy Mild hives Verified 08/03/21 13:50 Inhibitor [Slvebhi-Dia-Zpb Reductase Inhibitor] Sulfa (Sulfonamide Allergy Unknown Unknown Verified 08/03/21 13:50 Antibiotics) Review of Systems Review of Systems: All systems reviewed & are unremarkable except as noted in HPI and below PMFSH Past Medical History Medical History (Updated 09/19/21 @ 14:09 by Pablo Connelly III, DO) Chronic anemia Chronic kidney disease, stage 3 Coronary artery disease With history of stent. Essential hypertension Hypothyroidism Paroxysmal atrial fibrillation Transient ischemic attack (~2009) Surgical History Surgical History History of appendectomy History of bladder suspension procedure History of cholecystectomy History of coronary artery bypass graft History of heart artery stent Family History Family History Mother Hypothyroid Heart attack Hypertension Sibling Hypothyroid Father Heart attack Hypertension Social History Social History (Updated 08/03/21 @ 23:25 by Angela Thapa PA-C) Social History: The patient is and lives in independent living at [facility]. He is in the nursing due to his dementia. She denies alcohol, tobacco, and drug use. She designates her son, Cayden Newman, as her surrogate decision maker and she wishes to be a full code. Gender identity (if verbalized by the patient): Female Spiritual care concerns: No Exam Const: General: healthy appearing Nutritional Appearance: well nourished Orientation/consciousness: patient oriented x3 Limitations: no limitations Neck: Neck: normal visual inspection Chest: Chest palpation & inspection: normal inspection of the chest Resp: Effort & Inspection: normal respiratory effort Auscultation: clear to auscultation bilaterally Cardio: Rate: regular rate Rhythm: regular rhythm GI: Auscultation: normal bowel sounds Skin: General skin exam: normal color Rashes: no rashes Neuro: General: patient oriented x3 Cranial nerves: Yes Nystagmus not present Speech: normal speech Gait exam (Neuro): Normal gait present Extrem: General: normal to inspection and no clubbing, cyanosis or edema Psych: Mental Status: mental status grossly normal Affect: normal affect Attitude: cooperative Course Vital Signs Vital signs: Vital Signs Temperature 97.6 F 09/19/21 13:06 Pulse Rate 49 L 09/19/21 13:06 Respiratory Rate 16 09/19/21 13:06 Blood Pressure 138/47 L 09/19/21 13:06 Pulse Oximetry 97 09/19/21 13:06 Oxygen Delivery Room Air 09/19/21 13:06 Temperature 97.6 F 09/19/21 13:06 Pulse Rate 52 L 09/19/21 16:27 Respiratory Rate 13 09/19/21 16:27 Blood Pressure 156/66 H 09/19/21 16:27 Pulse Oximetry 100 09/19/21 16:27 Oxygen Delivery Room Air 09/19/21 13:06 MDM - Syncope Lab Data Result diagrams: 09/19/21 13:48 09/19/21 13:48 Labs: Lab Results
[2021-09-19 13:21] LABS: Glucose Point of Care 128 mg/dl (65-105)
[2021-09-19] MEDS: SODIUM CHLORIDE 0.9% IV 1,000 ML 999 ML IV CONT (13:31)
[2021-09-19 13:54] LABS: Basophils Percent Auto 0.7 % (0.2-1.2); Eosinophils Absolute Auto 0.3 K/mm3 (0-0.3); Eosinophils Percent Auto 4.6 % (0-4.4); Hematocrit 40.2 % (37.0-47.0); Hemoglobin 13.1 g/dL (12.0-15.0); Immature Granulocyte Absolute 0.01 K/mm3 (0.00-0.031); Immature Granulocyte Percent A 0.2 % (0-0.5); Lymphocytes Absolute Auto 1.66 K/mm3 (0.9-3.2); Lymphocytes Percent Auto 29.6 % (18.3-44.2); Mean Corpuscular HGB Conc 32.6 g/dl (32-36); Mean Corpuscular Hemoglobin 28.4 pg (26-34); Mean Corpuscular Volume 87.2 fl (80-100); Mean Platelet Volume 11.4 fl (7.4-10.4); Monocytes Absolute Auto 0.4 K/mm3 (0.1-0.6); Neutrophils Absolute Auto 3.2 K/mm3 (1.3-6.7); Neutrophils Percent Auto 57.9 % (45.5-73.1); Platelet Count Result 179 k/mm3 (150-375); Red Blood Count 4.61 M/mm3 (4.2-5.4); Red Cell Distribution Width 14.6 % (11.5-14.5); White Blood Count 5.6 K/mm3 (4.5-10.0)
[2021-09-19 14:11] LABS: Alanine Aminotransferase 12 U/L (6-35); Albumin Level 4.1 g/dL (3.5-5.1); Alkaline Phosphatase 55 U/L (38-126); Anion Gap 8 mmol/L (8-16); Aspartate Amino Transferase 21 U/L (14-36); Blood Urea Nitrogen 16 mg/dL (7-17); Calcium 9.1 mg/dL (8.4-10.2); Carbon Dioxide 25 mmol/L (22-30); Chloride 106 mmol/L (98-107); Estimated CRCL calculation 48 ml/min; Estimated Glomerular Filt Rate 60; Glucose 114 mg/dL (65-110); Potassium 3.8 mmol/L (3.4-5.0); Sodium 139 mmol/L (137-145)
[2021-09-19 14:22] LABS: Troponin I < 0.012 ng/mL (0.000-0.034)
--- NOTE | 2021-09-19 14:45 | PC.NURSE ---
Cardiology at bedside to place Holter Monitor.
--- NOTE | 2021-10-04 12:42 | WPDHOLTEREM ---
Holter/Event Monitor Holter/Event Monitor Date of procedure: 09/19/21 Holter/Event Procedure: 48 Hr Holter Monitor Indications: Syncope Conclusion: 1. 48 hour holter monitor on 09/19/21. 2. Predominant rhythm is sinus rhythm. HR range 42-112 bpm; average HR 55 bpm. 3. There are 93 premature supraventricular complexes and 6 supraventricular couplets. There is 1 episode of atrial tachycardia at 135 bpm lasting 4 beats at 10:40. 4. There is 1 premature ventricular complex. No ventricular tachycardia. 5. No sinoatrial or atrioventricular blocks. No significant pauses greater than 2 seconds. 6. No symptoms available for correlation.
== END 2021-09-19 16:29 | disposition home or self-care (01) ==
PROVIDERS: Emergency Provider Emergency Medicine; PCP Internal Medicine Geriatric Medicine
DX: R55 Syncope and collapse (principal); I12.9 Hypertensive chronic kidney disease with stage 1 through stage 4 chronic kidney disease, or unspecified chronic kidney disease; N18.30 Chronic kidney disease, stage 3 unspecified; D64.9 Anemia, unspecified; I25.10 Atherosclerotic heart disease of native coronary artery without angina pectoris; I48.0 Paroxysmal atrial fibrillation; E03.9 Hypothyroidism, unspecified; Z86.73 Personal history of transient ischemic attack (TIA), and cerebral infarction without residual deficits; Z95.1 Presence of aortocoronary bypass graft; Z95.5 Presence of coronary angioplasty implant and graft; R94.31 Abnormal electrocardiogram [ECG] [EKG]; R00.1 Bradycardia, unspecified
CPT/HCPCS: 36415; 71045; 80053; 82948; 84484; 85025; 93005; 93225; 93226; 96360; 99284; J7030

== ENCOUNTER 2022-07-24 21:37 | Inpatient (IN) | payer MEDICARE, SELFPAY ==
[2022-07-24] VITALS (10 sets, daily range): BP systolic 136–177; BP diastolic 89–90; PULSE 62–80; RESP 8–19; TEMP 36.5; O2SAT 92–100
--- NOTE | ~2022-07-24 | XR_ITS ---
Clinical Indication: Weakness, dizziness AP and lateral views of the chest: Comparison: 09/19/2021 Findings: The lungs are clear, without evidence of focal consolidation or pleural effusion. Cardiome diastinal silhouette is stable, status post CABG. Bones and soft tissues are unremarkable. Impression: Clear lungs. Status post CABG. Reviewed, dictated and finalized at location . Impression: Clear lungs. Status post CABG.
--- NOTE | ~2022-07-24 | CT_ITS ---
Non-contrast Head CT History: Dizziness COMPARISON: 08/03/2021 Technique: Axial non-contrast imaging of the brain was performed. Dose reduction technique was used on this scan by utilizing automated exposure control and iterative reconstruction technique. The dose -length product (DLP) was 605.33 mGy-cm. Findings: There is no evidence of intracranial hemorrhage, mass lesion, or acute infarct. Brain par enchyma appears normal. The ventricles and subarachnoid spaces are normal in size. The calvarium ap pears normal. The visualized paranasal sinuses and mastoid air cells are clear. Impression: No significant abnormality seen. Reviewed, dictated and finalized at location . Impression: No significant abnormality seen.
--- NOTE | 2022-07-24 21:53 | ECG_ITS ---
Measurements Intervals [place] Rate: 74 P: 30 OR: 192 QRS: -1 QRSD: 84 T: 61 QT: 373 QTc: 416 Interpretive Statements SINUS RHYTHM ST DEVIATION AND MODERATE T-WAVE ABNORMALITY, CONSIDER ANTERIOR ISCHEMIA [-0.1+ mV T WAVE IN V3/V4] COMPARED TO ECG 09/19/2021 13:21:43 SINUS RHYTHM NOW PRESENT T WAVE ABNORMALITY NOW PRESENT Electronically Signed On 07-25-2022 15:43:02 CDT by Thuy Bauer M.D.
[2022-07-24 22:07] LABS: Basophils Absolute Auto 0.1 K/mm3 (0.0-0.1); Basophils Percent Auto 0.8 % (0.2-1.2); Eosinophils Absolute Auto 0.3 K/mm3 (0-0.3); Eosinophils Percent Auto 4.6 % (0-4.4); Hemoglobin 13.7 g/dL (12.0-15.0); Immature Granulocyte Absolute 0.02 K/mm3 (0.00-0.031); Immature Granulocyte Percent A 0.3 % (0-0.5); Lymphocytes Absolute Auto 2.55 K/mm3 (0.9-3.2); Lymphocytes Percent Auto 39.5 % (18.3-44.2); Mean Corpuscular HGB Conc 34.3 g/dl (32-36); Mean Corpuscular Hemoglobin 30.5 pg (26-34); Mean Corpuscular Volume 89.1 fl (80-100); Mean Platelet Volume 10.9 fl (7.4-10.4); Monocytes Absolute Auto 0.4 K/mm3 (0.1-0.6); Monocytes Percent Auto 6.7 % (2.6-8.5); Neutrophils Absolute Auto 3.1 K/mm3 (1.3-6.7); Neutrophils Percent Auto 48.1 % (45.5-73.1); Platelet Count Result 206 k/mm3 (150-375); Red Blood Count 4.49 M/mm3 (4.2-5.4); Red Cell Distribution Width 15.2 % (11.5-14.5); White Blood Count 6.5 K/mm3 (4.5-10.0)
[2022-07-24 22:22] LABS: Appearance Urine Clear (Clear); Bilirubin Urine Negative (Negative); Blood Urine Negative (Negative); Color Urine Yellow (Yellow); Glucose Urine UA Negative (Negative); Ketones Urine Negative (Negative); Leukocyte Esterase Ur Negative LEU/UL (Negative); Nitrate Urine Negative (Negative); Protein Urine Negative (Negative); Specific Grav Ur 1.003 (1.001-1.035); Urobilinogen Urine 0.2 mg/dL (<2.0)
--- NOTE | 2022-07-24 22:22 | ECG_ITS ---
Measurements Intervals [place] Rate: 62 P: 60 WA: 151 QRS: 73 QRSD: 76 T: 90 QT: 378 QTc: 384 Interpretive Statements SINUS RHYTHM ALTERNATE LEAD PLACEMENT: Posterior V1: V7, V2: V8, V3: V9, V4: V4, V5: V5, V6: V6 COMPARED TO ECG 07/24/2022 21:57:19 NO SIGNIFICANT CHANGES Electronically Signed On 07-25-2022 15:43:51 CDT by Thuy Bauer M.D.
[2022-07-24 22:23] LABS: Alanine Aminotransferase 38 U/L (6-35); Albumin Level 4.6 g/dL (3.5-5.1); Alkaline Phosphatase 50 U/L (38-126); Anion Gap 8 mmol/L (8-16); Aspartate Amino Transferase 70 U/L (14-36); Blood Urea Nitrogen 9 mg/dL (7-17); Calcium 9.2 mg/dL (8.4-10.2); Carbon Dioxide 28 mmol/L (22-30); Chloride 94 mmol/L (98-107); Estimated Glomerular Filt Rate 48; Glucose 112 mg/dL (65-110); Potassium 3.6 mmol/L (3.4-5.0); Sodium 130 mmol/L (137-145)
[2022-07-24 22:38] LABS: Add Urine Microscopic? NO
[2022-07-24 22:57] LABS: Troponin I 0.045 ng/mL (0.000-0.034)
[2022-07-25] VITALS (35 sets, daily range): BP systolic 139–170; BP diastolic 71–91; PULSE 45–66; RESP 9–20; TEMP 36.1–37.2; O2SAT 96–100; BMI 29.4
--- NOTE | 2022-07-25 | ECHO_ITS ---
Patient Info Name: Joanne Newman Age: 82 years : 1940 Gender: Female Ht: 66 in Wt: 182 lbs BSA: 1.98 m2 HR: 47 bpm BP: 157 / 74 mmHg Heart Rhythm: Bradycardia Technical Quality: Fair Exam Date: 07/25/2022 7:53 AM Exam Location: [facility] Patient Status: Inpatient Admit Date: 07/25/2022 Staff Ordering Physician: Yonatan Doan MD Structured Cabling Technician: Radha Agarwal RDCS Attending Provider: Yonatan Doan MD Referring Physician: Franki CABAN; Exam Type: CA echo dop color flow w con Study Info Complete two-dimensional, color flow and Doppler transthoracic echocardiogram is performed with contrast to opacify the left ventricle and to improve the deliniation of the left ventricle endocardial borders. Contrast/Agitated Saline Contrast/Ag. Saline: Definity Amount: 3.00 ml Administered By: Radha Agarwal RDCS Existing IV Access: Yes IV Access Condition: patent with no signs of infiltration Summary 1. Left ventricular chamber dimension is normal. 2. Left ventricular systolic function is normal, estimated at 60-65%. 3. There is mildly increased left ventricular wall thickness. 4. The left ventricular diastolic function is grade I diastolic dysfunction. 5. Right ventricular chamber dimension is normal. 6. Right ventricular systolic function is reduced. 7. There is mild mitral valve regurgitation. 8. There is mild tricuspid valve regurgitation. 9. Normal inferior vena cava with >50% collapse upon inspiration consistent with normal right atrial pressure, 3 mmHg. Left Ventricle Left ventricular chamber dimension is normal. Left ventricular systolic function is normal, estimated at 60-65%. There is mildly increased left ventricular wall thickness. Left ventricular septal wall motion is abnormal with septal motion related to a post-operative state. The left ventricular diastolic function is grade I diastolic dysfunction. Right Ventricle Right ventricular chamber dimension is normal. Right ventricular systolic function is reduced. Left Atria Left atrial chamber dimension is normal. Right Atria Right atrial chamber dimension is normal. Atrial Septum Intact interatrial septum visualized by color flow imaging. Aortic Valve The aortic valve is probable trileaflet. There is mild aortic valve sclerosis. There is no aortic valve stenosis. There is trace aortic valve regurgitation. Pulmonic Valve The pulmonic valve is not well visualized. There is trace pulmonic regurgitation. Mitral Valve There is mild mitral valve regurgitation. The mitral valve annulus is mildly calcified. Tricuspid Valve There is mild tricuspid valve regurgitation. Pericardium/Pleural There is small anterior pericardial effusion. Inferior Vena Cava Normal inferior vena cava with >50% collapse upon inspiration consistent with normal right atrial pressure, 3 mmHg. Aorta The aortic root size at the sinus of Valsalva is normal. Left Ventricular Outflow Tract Name Value Normal LVOT 2D LVOT Diameter 2.02 cm LVOT Doppler LVOT Peak Gradient
--- NOTE | 2022-07-25 00:20 | ED.GENADULT ---
HPI - General Adult General Chief complaint: Dizziness Stated complaint: dizziness Time Seen by Provider: 07/24/22 22:49 History of Present Illness HPI narrative: 82-year-old female history of CABG presented with dizziness. Per patient, for the last 3 days she has been having intermittent dizziness, feeling unwell. Today she continued to have persistent dizziness described as lightheadedness so presented to the ED for further evaluation. She denied chest pain, shortness of breath, nausea, vomiting, diaphoresis, worsening with exertion fevers, chills, abdominal pain, dysuria, diarrhea, sick contacts. Past medical history: CAD, hypertension, CKD, hypothyroid, TIA Past surgical history: CABG cholecystectomy, appendectomy Allergies: Sulfa statins Related Data Home Medications Medication Instructions Recorded Confirmed amlodipine 5 mg tablet 5 mg PO DAILY 09/04/19 08/03/21 cetirizine 10 mg tablet 5 mg PO DAILY 09/04/19 08/03/21 hydrochlorothiazide 12.5 mg capsule 12.5 mg PO DAILY 09/04/19 08/03/21 lisinopril 20 mg tablet 20 mg PO DAILY 09/04/19 08/03/21 omeprazole 20 mg capsule,delayed 20 mg PO DAILY 09/04/19 08/03/21 release sertraline 100 mg tablet 100 mg PO DAILY 09/04/19 08/03/21 Allergies Allergy/AdvReac Type Severity Reaction Status Date / Time Vziiiyj-OSW-CzE Reductase Allergy Mild hives Verified 08/03/21 13:50 Inhibitor [Sxofnof-Gpb-Yuf Reductase Inhibitor] Sulfa (Sulfonamide Allergy Unknown Unknown Verified 08/03/21 13:50 Antibiotics) Review of Systems Review of Systems: See HPI [facility] Past Medical History Medical History Chronic anemia Chronic kidney disease, stage 3 Coronary artery disease With history of stent. Essential hypertension Hypothyroidism Paroxysmal atrial fibrillation Transient ischemic attack (~2009) Surgical History Surgical History History of appendectomy History of bladder suspension procedure History of cholecystectomy History of coronary artery bypass graft History of heart artery stent Family History Family History Mother Hypothyroid Heart attack Hypertension Sibling Hypothyroid Father Heart attack Hypertension Social History Social History (Updated 08/03/21 @ 23:25 by Angela Thapa PA-C) Social History: The patient is and lives in independent living at [facility]. He is in the nursing due to his dementia. She denies alcohol, tobacco, and drug use. She designates her son, Cayden Newman, as her surrogate decision maker and she wishes to be a full code. Gender identity (if verbalized by the patient): Female Spiritual care concerns: No Exam Narrative: APPEARANCE: Alert, calm and cooperative, no acute distress, phonating, sitting comfortably during visit HEAD: atraumatic, no facial palsy EYES: Pupils equal round an reactive to light, extra ocular movements intact, no conjunctival injection, no nystagmus NOSE: Normal no drainage NECK: Supple, without meningismus RESPIRATORY: Lungs clear to auscultation bilaterally, no wheezes/rales/rhonchi, breathing comfortably CARDIOVASCULAR: Regular rate and rhythm, no visible jugular venous distension ABDOMINAL: Soft, nontender, nondistended, no guarding, no rebound/peritoneal signs, no costovertebral tenderness to palpation BACK: no midline tenderness to palpation, no step offs EXTREMITIES: No edema, palpable peripheral pulses, warm, well perfused, no tenderness to bilateral calves. NEURO: Alert and oriented x3, moving all extremities symmetrically, normal finger nose finger, 5/5 strength throughout, no truncal ataxia SKIN:: Warm, dry. Normal color PSYCHIATRIC: Normal affect/mood Course Reevaluation(s) Reevaluation #1: Patient re-evaluated, reports symptoms of dizzinesss at this time Date: 07/25/22 Time: 03:26 Consultations C
[2022-07-25] MEDS: ASPIRIN 81 MG CHEWABLE TABLET 324 MG PO (00:35)
--- NOTE | 2022-07-25 00:37 | ECG_ITS ---
Measurements Intervals [place] Rate: 51 P: 39 RI: 199 QRS: 62 QRSD: 100 T: 128 QT: 464 QTc: 428 Interpretive Statements SINUS BRADYCARDIA INFERIOR MYOCARDIAL INFARCTION , PROBABLY OLD [40+ ms Q WAVE AND/OR ST/T ABNORMALITY IN II/aVF] MODERATE T-WAVE ABNORMALITY, CONSIDER ANTEROLATERAL ISCHEMIA [-0.1+ mV T WAVE IN I/aVL/V5/V6] COMPARED TO ECG 07/24/2022 22:19:19 SINUS BRADYCARDIA NOW PRESENT NO SIGNIFICANT CHANGES Electronically Signed On 07-25-2022 15:46:22 CDT by Thuy Bauer M.D.
[2022-07-25 02:34] LABS: NT Pro B Type Natriuretic Pept 427 pg/mL (19.9-100)
[2022-07-25 02:48] LABS: Troponin I 0.049 ng/mL (0.000-0.034)
--- NOTE | 2022-07-25 03:46 | PM.IMHP ---
H&P: HPI History of Present Illness Date/Time: 07/25/22 03:46 Chief Complaint: dizziness and feeling unwell Narrative: Patient is an 82-year-old female with past medical history of hypertension, hypothyroidism, coronary artery disease status post CABG coming in for dizziness and feeling unwell for 1 day. Patient lives in an assisted living facility and is usually independent, able to ambulate without any assisted device. She called up her son today after feeling dizzy and thinking that she was going to pass out. She denied any actual chest pain. No nausea, vomiting, fever or diarrhea. No coughing. Patient says she has felt dizzy in the past and thought that it was due to her usual urinary tract infection. She does complain of some dysuria on and off. Patient has a history of CABG 2 years ago and has had episodes of bradycardia previously. She had Holter monitoring in the past with a rate as low as 48. According to her son and [id number], a pacemaker was recommended in the past the patient refused it. As per son Cayden, patient is still taking metoprolol at home, unknown dose, although this is not reflected in her current medication list. Workup in the ER included a CT scan of the head and chest x-ray which were reported by the ER doctor as showing no acute lesions. Patient had slightly elevated troponin at 0.45 with an EKG showing some T-wave inversions in the lateral leads. Cardiology was consulted from the ER and recommended to continue the aspirin. Review of Systems Review of Systems: no fever or weight loss no vision changes, no eye discharge no throat pain, no hoarseness, no lymphadenopathy Minimal chest pain, no palpitations no coughing, no wheezing no abdominal pain, no diarrhea, no nausea, no vomiting no dysuria, no vaginal discharge no leg swelling, no edema no suicidal or homicidal ideation [facility] Past Medical History Medical History Chronic anemia Chronic kidney disease, stage 3 Coronary artery disease With history of stent. Essential hypertension Hypothyroidism Paroxysmal atrial fibrillation Transient ischemic attack (~2009) Surgical History Surgical History History of appendectomy History of bladder suspension procedure History of cholecystectomy History of coronary artery bypass graft History of heart artery stent Family History Family History Mother Hypothyroid Heart attack Hypertension Sibling Hypothyroid Father Heart attack Hypertension Social History Social History (Updated 08/03/21 @ 23:25 by Angela Thapa PA-C) Social History: The patient is and lives in independent living at [facility]. He is in the nursing due to his dementia. She denies alcohol, tobacco, and drug use. She designates her son, Cayden Newman, as her surrogate decision maker and she wishes to be a full code. Gender identity (if verbalized by the patient): Female Spiritual care concerns: No Meds Home Medications and Allergies Home Medications Medication Instructions Recorded Confirmed Type amlodipine 5 mg tablet 5 mg PO DAILY 09/04/19 08/03/21 History cetirizine 10 mg tablet 5 mg PO DAILY 09/04/19 08/03/21 History hydrochlorothiazide 12.5 mg capsule 12.5 mg PO DAILY 09/04/19 08/03/21 History lisinopril 20 mg tablet 20 mg PO DAILY 09/04/19 08/03/21 History omeprazole 20 mg capsule,delayed 20 mg PO DAILY 09/04/19 08/03/21 History release sertraline 100 mg tablet 100 mg PO DAILY 09/04/19 08/03/21 History meclizine 12.5 mg tablet 12.5 mg PO TID PRN dizziness #30 03/21/20 08/03/21 Rx tabs amoxicillin 500 mg-potassium 1 tablet PO Q8H #21 tabs 08/07/21 Rx clavulanate 125 mg tablet (Augmentin) Allergies Allergy/AdvReac Type Severity Reaction Status Date / Time Qleijti-SHA-CdN Reductase Allergy Mild hives Verified
--- NOTE | 2022-07-25 04:57 | ADMGEN ---
This patient, Joanne Newman, was admitted to IMU Room 206-01 at 0457. Patient/family oriented to hospital policies and general routines including ID bracelet, bed and alarms, visiting hours, pain management, procedures, bathroom and other care routines, personal items, smoking policy, room service/diet, and visiting hours. Information on how to activate the Rapid Response Team has been discussed. Patient/Family are encouraged to report perceived risks to care and to ask questions if they do not understand what they are told or what they should do.
[2022-07-25 05:08] LABS: Troponin I 0.053 ng/mL (0.000-0.034)
[2022-07-25] MEDS: ENOXAPARIN 40 MG/0.4 ML SYRINGE SUB-Q (05:20)
--- NOTE | 2022-07-25 05:45 | PC.NURSE ---
patient unable to verify medication. patient is having memory problem. attempted to call son to verify medication. no answer, left message to call back.
[2022-07-25 05:47] LABS: Thyroid Stimulating Hormone Reflex > 100.000 uIU/mL (0.465-4.68)
[2022-07-25 07:21] LABS: Free T4 Free Thyroxine Reflex < 0.07 ng/dL (0.78-2.19)
--- NOTE | 2022-07-25 07:54 | PC.NURSE ---
0700 pt does not know home medications- stated to call her son he knows what she takes - called and left message for son to call nurses station
[2022-07-25] MEDS: PERFLUTREN LIPID MICROSPHERES 1.5 ML VIAL DILUTED TO 10 ML TOTAL VOLUME IV PUSH (08:40)
--- NOTE | 2022-07-25 08:41 | IVDEFINITY ---
Prior to administration of IV Definity the patient was educated on the risks and benefits of the imaging enhancing agent including potential adverse side effects. The patient verbalized understanding. Allergies were verified. No exclusion criteria were identified and at least one of the following inclusion criteria were met: 1) physician request, 2) patient technically difficult to image (per the [place] [employer] guidelines of two or more segments not discernable within the apical view), or 3) questionable left ventricular function. ?
[2022-07-25] MEDS: lisinopriL 20 MG TABLET PO (09:27)
[2022-07-25] MEDS: HEPARIN SODIUM 5,000 UNITS/ML VIAL 5000 UNITS SUB-Q ×2 (09:27→20:07)
[2022-07-25] MEDS: ACETAMINOPHEN 325 MG TABLET 650 MG PO ×2 (12:33→20:06)
--- NOTE | 2022-07-25 12:56 | PM.CNCAR ---
Assessment and Plan Assessment and plan (1) Bradycardia: Code(s): R00.1 - Bradycardia, unspecified Status: Acute Assessment and Plan: She is in sinus bradycardia. On telemetry she does not have any evidence of significant bradycardia, high-degree block, or pauses. Doubt her heart rate is contributing to her dizziness. She does describe some symptoms that are consistent with orthostatic hypotension, though. Will check orthostatic blood pressures. Continue to monitor on telemetry. Can arrange for outpatient hospital monitor as well if inpatient telemetry is unrevealing. Echo showed normal LVSF, grade I diastolic dysfunction. No significant valve pathology. She does take metoprolol at home, this should be discontinued. Monitor heart rate response and any improvement in symptoms with discontinuation of BB. Currently there is no clear cardiac cause for her dizziness. Will follow on on as needed basis. Please do not hesitate to contact us with any questions. (2) CAD (coronary artery disease): Code(s): I25.10 - Atherosclerotic heart disease of [place] coronary artery without angina pectoris Status: Acute Assessment and Plan: Stable, no anginal symptoms. Continue ASA. Has statin intolerance. (3) HTN (hypertension), benign: Code(s): I10 - Essential (primary) hypertension Status: Acute Assessment and Plan: Above goal. (4) Dizziness: Code(s): R42 - Dizziness and giddiness Status: Acute Assessment and Plan: As above History of Present Illness History of Present Illness Consult date/time: 07/25/22 12:56 Requesting physician: Yonatan Doan MD Consult reason: Other (bradycardia) Reason For Visit: Symptomatic Bradycardia Narrative: Joanne Newman is a 82 year old female with history of coronary artery disease s/p CABG 4 years ago at [facility]. This is a patient who presented to the hospital with a chief complaint of dizziness. She has been experiencing dizziness for about 4 days. Has more dizziness when transitioning from seated to standing position but also has experienced dizziness while lying down. She denies any chest pain, shortness of breath, palpitations. She does report that she has passed out but is unsure if she lost consciousness. State she can feel her episodes of dizziness coming on and tries to alert family. Review of Systems Review of Systems: All systems reviewed & are unremarkable except as noted in HPI and below PMFSH Past Medical History Medical History Chronic anemia Chronic kidney disease, stage 3 Coronary artery disease With history of stent. Essential hypertension Hypothyroidism Paroxysmal atrial fibrillation Transient ischemic attack (~2009) Surgical History Surgical History History of appendectomy History of bladder suspension procedure History of cholecystectomy History of coronary artery bypass graft History of heart artery stent Family History Family History Mother Hypothyroid Heart attack Hypertension Sibling Hypothyroid Father Heart attack Hypertension Social History Social History Social History: The patient is and lives in independent living at [facility]. He is in the nursing due to his dementia. She denies alcohol, tobacco, and drug use. She designates her son, Cayden Newman, as her surrogate decision maker and she wishes to be a full code. Smoking status: Never smoker Alcohol intake: never Substance use: never Substance use type: does not use Lack of Transportation: No Lack of Food: Never True Current Housing: I Have Housing Concerned About Future Housing: No Difficulty Paying Gas/Electric Bills: No Difficulty Paying
--- NOTE | 2022-07-25 14:25 | PM.IMPN ---
Progress Note: A&P Assessment and Plan (1) Dizziness: Code(s): R42 - Dizziness and giddiness Status: Acute Assessment and Plan: Patient coming in with dizziness and lightheadedness. Physical exam does not show any focal deficits. CT scan of the head has been done, official results pending however per ER doctor read no acute lesions seen. Patient has been having heart rate down to 48. Unknown if this is contributing to her dizziness. Will need Cardiology consult for potential pacemaker placement especially since patient with uncontrolled hypertension. We will put her on fall precautions. Avoid beta blockers. Will need physical therapy. 07/25/2022 interval history, patient with c/o of dizziness and generalized weakness which she generally attributes to UTI however her urine is clean, there is mildly elevated tropes but are flate, she does not have any CP other than dizziness, her cardiac ECHO is essentially normal, patient stats she feels little better now, patent will be seen by her clerical and administrative workers and further recommendations to follow. (2) CAD (coronary artery disease): Code(s): I25.10 - Atherosclerotic heart disease of [place] coronary artery without angina pectoris Status: Acute Assessment and Plan: Patient with known coronary artery disease status post CABG. Patient with vague symptoms, initially denied any chest pain and then later on saying she has some nonspecific tightness in her chest. Initial troponin was elevated at 0.45, repeat was 0.49. Continue to trend her troponins. Patient did have some new T-wave inversions in the lateral leads on her most recent EKG. Cardiology was consulted from the ER and recommended to continue with her aspirin. Ideally patient should be on beta blockers however her heart rate is already on the lower side. Will defer to Cardiology for further recommendations including repeat cardiac catheterization. Patient is allergic to statins. Patient clinically with clear lungs, does not appear to be in any fluid overload or CHF exacerbation. Will check 2D echo to evaluate LV function. (3) Hypothyroidism: Code(s): E03.9 - Hypothyroidism, unspecified Status: Acute Assessment and Plan: Patient with known history of hypothyroidism. Ran out of her medications. We will check her TSH. Resume previous home dose of Synthroid once medicine reconciliation is complete. (4) Chronic kidney disease, stage 3: Code(s): N18.3 - Chronic kidney disease, stage 3 (moderate) Status: Acute Assessment and Plan: Patient supposedly with history of chronic kidney disease stage 3. Creatinine currently slightly elevated at 1.1. Will continue to monitor. Hold diuretic for now. (5) Essential hypertension: Code(s): I10 - Essential (primary) hypertension Status: Acute Assessment and Plan: Patient with known hypertension, chart reveals patient on amlodipine 5, lisinopril 20 and hydrochlorothiazide. Resume amlodipine and lisinopril. Increase as tolerated. Hydrochlorothiazide placed on hold due to elevated creatinine. Patient is not a candidate for beta-blockers due to bradycardia. Will give p.r.n. doses of hydralazine for elevated blood pressure. If patient with persistently high blood pressure and unable to increase meds due to bradycardia, may be a candidate for pacer placement. Will await Cardiology recommendations. Plan POA is ruiz Rodarte Full code Subjective Date/time seen: 07/25/22 14:25 Narrative: Patient is an 82-year-old female with past medical history of hypertension, hypothyroidism, coronary artery disease status post CABG coming in for dizziness and feeling unwell for 1 day.? Patient lives in an assisted living facility and is usually independent, able to ambulate without any assisted device.? She called up her son today after feeling dizzy and thinking that she was going to pass out.? She denied any actual chest pain.? No nausea, vomiting
[2022-07-26] VITALS (15 sets, daily range): BP systolic 127–184; BP diastolic 67–89; PULSE 47–96; RESP 16–20; TEMP 35.9–36.6; O2SAT 97–100
[2022-07-26] MEDS: HEPARIN SODIUM 5,000 UNITS/ML VIAL 5000 UNITS SUB-Q ×2 (09:29→20:12)
[2022-07-26] MEDS: PANTOPRAZOLE 40 MG TABLET PO (09:30)
[2022-07-26] MEDS: LEVOTHYROXINE SODIUM 75 MCG TABLET BY MOUTH (09:30)
[2022-07-26] MEDS: SERTRALINE HCL 50 MG TABLET 100 MG PO (09:30)
[2022-07-26] MEDS: SPIRONOLACTONE 25 MG TABLET PO (09:30)
[2022-07-26] MEDS: lisinopriL 20 MG TABLET PO (09:30)
[2022-07-26] MEDS: amLODIPine BESYLATE 5 MG TABLET PO (09:31)
--- NOTE | 2022-07-26 11:49 | PM.IMPN ---
Progress Note: A&P Assessment and Plan (1) Dizziness: Code(s): R42 - Dizziness and giddiness Status: Acute Assessment and Plan: Patient coming in with dizziness and lightheadedness. Physical exam does not show any focal deficits. CT scan of the head has been done, official results pending however per ER doctor read no acute lesions seen. Patient has been having heart rate down to 48. Unknown if this is contributing to her dizziness. Consult cardiology potential pacemaker placement especially since patient with uncontrolled hypertension. We will put her on fall precautions. Avoid beta blockers. Will need physical therapy. So sinus bradycardia noted no high-degree AV block or pauses Orthostatic positive but now stable Echo 07/25/2022 with EF 60-65% grade 1 diastolic dysfunction severe valvular abnormality (2) CAD (coronary artery disease): Code(s): I25.10 - Atherosclerotic heart disease of [place] coronary artery without angina pectoris Status: Acute Assessment and Plan: Patient with known coronary artery disease status post CABG. Patient with vague symptoms, initially denied any chest pain and then later on saying she has some nonspecific tightness in her chest. Initial troponin was elevated at 0.45, repeat was 0.49. Continue to trend her troponins. Patient did have some new T-wave inversions in the lateral leads on her most recent EKG. Cardiology was consulted from the ER and recommended to continue with her aspirin. Ideally patient should be on beta blockers however her heart rate is already on the lower side. Will defer to Cardiology for further recommendations including repeat cardiac catheterization. Patient is allergic to statins. Patient clinically with clear lungs, does not appear to be in any fluid overload or CHF exacerbation. Echo see above (3) Hypothyroidism: Code(s): E03.9 - Hypothyroidism, unspecified Status: Acute Assessment and Plan: Patient with known history of hypothyroidism. Ran out of her medications. TSH is high. Resume levothyroxine This could be the the reason for his bradycardia Will levothyroxine resumed (4) Chronic kidney disease, stage 3: Code(s): N18.3 - Chronic kidney disease, stage 3 (moderate) Status: Acute Assessment and Plan: Patient supposedly with history of chronic kidney disease stage 3. Creatinine currently slightly elevated at 1.1. Will continue to monitor. Hold diuretic for now. (5) Essential hypertension: Code(s): I10 - Essential (primary) hypertension Status: Acute Assessment and Plan: Patient with known hypertension, chart reveals patient on amlodipine 5, lisinopril 20 and hydrochlorothiazide. Resume amlodipine and lisinopril. Increase as tolerated. Hydrochlorothiazide placed on hold due to elevated creatinine. Patient is not a candidate for beta-blockers due to bradycardia. Will give p.r.n. doses of hydralazine for elevated blood pressure. If patient with persistently high blood pressure and unable to increase meds due to bradycardia, may be a candidate for pacer placement. Will await Cardiology recommendations. Plan POA is ruiz Rodarte Full code Heparin subQ DVT prophylaxis Subjective Date/time seen: 07/26/22 11:50 Interval history: Patient feels okay. No dizziness or lightheadedness. Thought she had UTI. Reported urine test came back negative. Was noted to be bradycardic and hence admitted to the hospital for further evaluation. She is feeling well today. Review of Systems Review of Systems: All systems reviewed & are unremarkable except as noted in HPI and below Exam Narrative: Morbidly obese Patient is comfortable, NAD HEENT: eyes are clear and none icteric LUNGS: Normal respiratory effort clear to auscultation ABD: Distended soft nontender Lower extremities: no edema cyanosis or clubbing SKIN: nonjaundiced Neuro: grossly intact. Objective Data Vital Signs Nisha
[2022-07-26] MEDS: ACETAMINOPHEN 325 MG TABLET 650 MG PO (13:55)
--- NOTE | 2022-07-26 15:26 | PCCCNOTE ---
On 07/26/22, the student, [Sharon Jarvis], provided care and completed [facility] documentation on this patient. I have reviewed the student's documentation and agree with the findings.
[2022-07-26] MEDS: BENZOCAINE 20% DENTAL GEL 9 GM TUBE 1 APPLIC BY MOUTH (15:59)
[2022-07-26] MEDS: IBUPROFEN 600 MG TABLET PO (16:48)
[2022-07-27] VITALS (18 sets, daily range): BP systolic 128–167; BP diastolic 61–92; PULSE 51–80; RESP 18–20; TEMP 35.9–36.7; O2SAT 98–100
[2022-07-27 05:40] LABS: Basophils Percent Auto 0.5 % (0.2-1.2); Eosinophils Absolute Auto 0.2 K/mm3 (0-0.3); Eosinophils Percent Auto 3.9 % (0-4.4); Hematocrit 36.9 % (37.0-47.0); Hemoglobin 12.6 g/dL (12.0-15.0); Immature Granulocyte Absolute 0.01 K/mm3 (0.00-0.031); Immature Granulocyte Percent A 0.2 % (0-0.5); Lymphocytes Absolute Auto 2.35 K/mm3 (0.9-3.2); Lymphocytes Percent Auto 39.6 % (18.3-44.2); Mean Corpuscular HGB Conc 34.1 g/dl (32-36); Mean Corpuscular Hemoglobin 29.9 pg (26-34); Mean Corpuscular Volume 87.4 fl (80-100); Mean Platelet Volume 11.5 fl (7.4-10.4); Monocytes Absolute Auto 0.4 K/mm3 (0.1-0.6); Monocytes Percent Auto 6.7 % (2.6-8.5); Neutrophils Absolute Auto 2.9 K/mm3 (1.3-6.7); Neutrophils Percent Auto 49.1 % (45.5-73.1); Platelet Count Result 176 k/mm3 (150-375); Red Blood Count 4.22 M/mm3 (4.2-5.4); Red Cell Distribution Width 15.1 % (11.5-14.5); White Blood Count 5.9 K/mm3 (4.5-10.0)
[2022-07-27] MEDS: LEVOTHYROXINE SODIUM 150 MCG TABLET BY MOUTH (05:51)
[2022-07-27 05:53] LABS: Alanine Aminotransferase 33 U/L (6-35); Albumin Level 4.4 g/dL (3.5-5.1); Alkaline Phosphatase 44 U/L (38-126); Anion Gap 7 mmol/L (8-16); Aspartate Amino Transferase 68 U/L (14-36); Blood Urea Nitrogen 12 mg/dL (7-17); Calcium 9.2 mg/dL (8.4-10.2); Carbon Dioxide 26 mmol/L (22-30); Chloride 101 mmol/L (98-107); Estimated CRCL calculation 36 ml/min; Estimated Glomerular Filt Rate 43; Glucose 105 mg/dL (65-110); Magnesium 2.2 mg/dL (1.6-2.3); Potassium 4.2 mmol/L (3.4-5.0); Sodium 134 mmol/L (137-145)
[2022-07-27] MEDS: lisinopriL 20 MG TABLET PO (08:36)
[2022-07-27] MEDS: amLODIPine BESYLATE 5 MG TABLET PO (08:36)
[2022-07-27] MEDS: SPIRONOLACTONE 25 MG TABLET PO (08:36)
[2022-07-27] MEDS: HEPARIN SODIUM 5,000 UNITS/ML VIAL 5000 UNITS SUB-Q ×2 (08:36→20:23)
[2022-07-27] MEDS: SERTRALINE HCL 50 MG TABLET 100 MG PO (08:36)
[2022-07-27] MEDS: PANTOPRAZOLE 40 MG TABLET PO (08:36)
--- NOTE | 2022-07-27 13:29 | PCCCNOTE ---
On 07/27/22, the student, [Sharon Jarvis], provided care and completed [facility] documentation on this patient. I have reviewed the student's documentation and agree with the findings.
--- NOTE | 2022-07-27 14:45 | PM.IMPN ---
Progress Note: A&P Assessment and Plan (1) Dizziness: Code(s): R42 - Dizziness and giddiness Status: Acute Assessment and Plan: Patient coming in with dizziness and lightheadedness. Physical exam does not show any focal deficits. CT scan of the head has been done, official results pending however per ER doctor read no acute lesions seen. Patient has been having heart rate down to 48. Unknown if this is contributing to her dizziness. Consult cardiology potential pacemaker placement especially since patient with uncontrolled hypertension. We will put her on fall precautions. Avoid beta blockers. PT OT to see So sinus bradycardia noted no high-degree AV block or pauses Orthostatic positive but now stable Echo 07/25/2022 with EF 60-65% grade 1 diastolic dysfunction severe valvular abnormality (2) CAD (coronary artery disease): Code(s): I25.10 - Atherosclerotic heart disease of [place] coronary artery without angina pectoris Status: Acute Assessment and Plan: Patient with known coronary artery disease status post CABG. Patient with vague symptoms, initially denied any chest pain and then later on saying she has some nonspecific tightness in her chest. Initial troponin was elevated at 0.45, repeat was 0.49. Continue to trend her troponins. Patient did have some new T-wave inversions in the lateral leads on her most recent EKG. Cardiology was consulted from the ER and recommended to continue with her aspirin. Ideally patient should be on beta blockers however her heart rate is already on the lower side. Will defer to Cardiology for further recommendations including repeat cardiac catheterization. Patient is allergic to statins. Patient clinically with clear lungs, does not appear to be in any fluid overload or CHF exacerbation. Echo see above (3) Hypothyroidism: Code(s): E03.9 - Hypothyroidism, unspecified Status: Acute Assessment and Plan: Patient with known history of hypothyroidism. Ran out of her medications. TSH is high. Resume levothyroxine This could be the the reason for his bradycardia Will levothyroxine resumed (4) Chronic kidney disease, stage 3: Code(s): N18.3 - Chronic kidney disease, stage 3 (moderate) Status: Acute Assessment and Plan: Patient supposedly with history of chronic kidney disease stage 3. Creatinine currently slightly elevated at 1.1. Will continue to monitor. Hold diuretic for now. (5) Essential hypertension: Code(s): I10 - Essential (primary) hypertension Status: Acute Assessment and Plan: Patient with known hypertension, chart reveals patient on amlodipine 5, lisinopril 20 and hydrochlorothiazide. Resume amlodipine and lisinopril. Increase as tolerated. Hydrochlorothiazide placed on hold due to elevated creatinine. Patient is not a candidate for beta-blockers due to bradycardia. Will give p.r.n. doses of hydralazine for elevated blood pressure. If patient with persistently high blood pressure and unable to increase meds due to bradycardia, may be a candidate for pacer placement. Will await Cardiology recommendations. Plan POA is son Cayden Full code Confusion: CT head is negative. Likely delirium. Heparin subQ DVT prophylaxis Subjective Date/time seen: 07/27/22 14:45 Interval history: Patient remains confused. Denies any dizziness or lightheadedness. Telemetry reviewed. Sinus bradycardia noted. Has a small bump in her lower left gum which is sore Review of Systems Review of Systems: All systems reviewed & are unremarkable except as noted in HPI and below Exam Narrative: Morbidly obese Patient is comfortable, NAD HEENT: eyes are clear and none icteric small tender mildly erythematous nodule on left lower under 2nd molar LUNGS: Normal respiratory effort clear to auscultation ABD: Distended soft nontender Lower extremities: no edema cyanosis or clubbing SKIN: nonjaundiced Neuro: grossly i
[2022-07-27] MEDS: hydrALAZINE HCL 20 MG/ML VIAL 10 MG IV PUSH (19:07)
[2022-07-27 20:16] LABS: Glucose Point of Care 101 mg/dl (65-105)
[2022-07-27] MEDS: AMOXICILLIN/CLAVULANATE K 875-125 MG TAB 1 TABLET PO (20:23)
[2022-07-27] MEDS: ACETAMINOPHEN 325 MG TABLET 650 MG PO (23:33)
[2022-07-28] VITALS (15 sets, daily range): BP systolic 134–164; BP diastolic 56–92; PULSE 55–83; RESP 16–20; TEMP 36.1–36.8; O2SAT 95–100
[2022-07-28] MEDS: LEVOTHYROXINE SODIUM 75 MCG TABLET BY MOUTH (06:10)
[2022-07-28] MEDS: lisinopriL 20 MG TABLET PO (11:53)
[2022-07-28] MEDS: ASPIRIN 325 MG TABLET 650 MG PO (11:54)
[2022-07-28] MEDS: SERTRALINE HCL 50 MG TABLET 100 MG PO (11:54)
[2022-07-28] MEDS: PANTOPRAZOLE 40 MG TABLET PO (11:55)
[2022-07-28] MEDS: SPIRONOLACTONE 25 MG TABLET PO (11:55)
[2022-07-28] MEDS: HEPARIN SODIUM 5,000 UNITS/ML VIAL 5000 UNITS SUB-Q ×2 (11:56→20:13)
[2022-07-28] MEDS: amLODIPine BESYLATE 5 MG TABLET PO (11:56)
[2022-07-28] MEDS: AMOXICILLIN/CLAVULANATE K 875-125 MG TAB 1 TABLET PO ×2 (11:56→20:13)
--- NOTE | 2022-07-28 13:57 | PM.IMPN ---
Progress Note: A&P Assessment and Plan (1) Dizziness: Code(s): R42 - Dizziness and giddiness Status: Acute Assessment and Plan: Patient coming in with dizziness and lightheadedness. Physical exam does not show any focal deficits. CT scan of the head has been done, official results pending however per ER doctor read no acute lesions seen. Patient has been having heart rate down to 48. Unknown if this is contributing to her dizziness. Consult cardiology potential pacemaker placement especially since patient with uncontrolled hypertension. We will put her on fall precautions. Avoid beta blockers. PT OT to see So sinus bradycardia noted no high-degree AV block or pauses Orthostatic positive but now stable Echo 07/25/2022 with EF 60-65% grade 1 diastolic dysfunction severe valvular abnormality (2) CAD (coronary artery disease): Code(s): I25.10 - Atherosclerotic heart disease of [place] coronary artery without angina pectoris Status: Acute Assessment and Plan: Patient with known coronary artery disease status post CABG. Patient with vague symptoms, initially denied any chest pain and then later on saying she has some nonspecific tightness in her chest. Initial troponin was elevated at 0.45, repeat was 0.49. Continue to trend her troponins. Patient did have some new T-wave inversions in the lateral leads on her most recent EKG. Cardiology was consulted from the ER and recommended to continue with her aspirin. Ideally patient should be on beta blockers however her heart rate is already on the lower side. Will defer to Cardiology for further recommendations including repeat cardiac catheterization. Patient is allergic to statins. Patient clinically with clear lungs, does not appear to be in any fluid overload or CHF exacerbation. Echo see above (3) Hypothyroidism: Code(s): E03.9 - Hypothyroidism, unspecified Status: Acute Assessment and Plan: Patient with known history of hypothyroidism. Ran out of her medications. TSH is high. Resume levothyroxine This could be the the reason for his bradycardia Levothyroxine resumed Need TSH level measured as an outpatient basis in 6-8 weeks (4) Chronic kidney disease, stage 3: Code(s): N18.3 - Chronic kidney disease, stage 3 (moderate) Status: Acute Assessment and Plan: Patient supposedly with history of chronic kidney disease stage 3. Creatinine currently slightly elevated at 1.1. Will continue to monitor. Hold diuretic for now. (5) Essential hypertension: Code(s): I10 - Essential (primary) hypertension Status: Acute Assessment and Plan: Patient with known hypertension, chart reveals patient on amlodipine 5, lisinopril 20 and hydrochlorothiazide. Resume amlodipine and lisinopril. Increase as tolerated. Hydrochlorothiazide placed on hold due to elevated creatinine. Patient is not a candidate for beta-blockers due to bradycardia. Will give p.r.n. doses of hydralazine for elevated blood pressure. If patient with persistently high blood pressure and unable to increase meds due to bradycardia, may be a candidate for pacer placement. Will await Cardiology recommendations. Plan POA is ruiz Rodarte Full code Confusion: CT head is negative. Likely delirium. Heparin subQ DVT prophylaxis Subjective Date/time seen: 07/28/22 13:57 Interval history: No overnight events. Patient continues to remain confused. Denies any dizziness or lightheadedness. Telemetry reviewed. Remains afebrile. Review of Systems Review of Systems: All systems reviewed & are unremarkable except as noted in HPI and below Exam Narrative: Morbidly obese Patient is comfortable, NAD HEENT: eyes are clear and none icteric small tender mildly erythematous nodule on left lower under 2nd molar LUNGS: Normal respiratory effort clear to auscultation ABD: Distended soft nontender Lower extremities: no edema cyanosis or clubbing SKIN: n
[2022-07-29] VITALS (14 sets, daily range): BP systolic 118–149; BP diastolic 46–74; PULSE 53–79; RESP 12–21; TEMP 36.1–36.9; O2SAT 97–100
[2022-07-29] MEDS: LEVOTHYROXINE SODIUM 75 MCG TABLET BY MOUTH (06:33)
[2022-07-29] MEDS: ASPIRIN 325 MG TABLET 650 MG PO (08:29)
[2022-07-29] MEDS: SERTRALINE HCL 50 MG TABLET 100 MG PO (08:29)
[2022-07-29] MEDS: HEPARIN SODIUM 5,000 UNITS/ML VIAL 5000 UNITS SUB-Q ×2 (08:29→20:23)
[2022-07-29] MEDS: SPIRONOLACTONE 25 MG TABLET PO (08:30)
[2022-07-29] MEDS: PANTOPRAZOLE 40 MG TABLET PO (08:30)
[2022-07-29] MEDS: lisinopriL 20 MG TABLET PO (08:30)
[2022-07-29] MEDS: amLODIPine BESYLATE 5 MG TABLET PO (08:30)
[2022-07-29] MEDS: AMOXICILLIN/CLAVULANATE K 875-125 MG TAB 1 TABLET PO ×2 (08:30→20:23)
--- NOTE | 2022-07-29 13:12 | PM.IMPN ---
Progress Note: A&P Assessment and Plan (1) Dizziness: Code(s): R42 - Dizziness and giddiness Status: Acute Assessment and Plan: Patient coming in with dizziness and lightheadedness. Physical exam does not show any focal deficits. CT scan of the head has been done, official results pending however per ER doctor read no acute lesions seen. Patient has been having heart rate down to 48. Unknown if this is contributing to her dizziness. Consult cardiology potential pacemaker placement especially since patient with uncontrolled hypertension. We will put her on fall precautions. Avoid beta blockers. PT OT to see So sinus bradycardia noted no high-degree AV block or pauses Orthostatic positive but now stable Echo 07/25/2022 with EF 60-65% grade 1 diastolic dysfunction severe valvular abnormality (2) CAD (coronary artery disease): Code(s): I25.10 - Atherosclerotic heart disease of [place] coronary artery without angina pectoris Status: Acute Assessment and Plan: Patient with known coronary artery disease status post CABG. Patient with vague symptoms, initially denied any chest pain and then later on saying she has some nonspecific tightness in her chest. Initial troponin was elevated at 0.45, repeat was 0.49. Continue to trend her troponins. Patient did have some new T-wave inversions in the lateral leads on her most recent EKG. Cardiology was consulted from the ER and recommended to continue with her aspirin. Ideally patient should be on beta blockers however her heart rate is already on the lower side. Will defer to Cardiology for further recommendations including repeat cardiac catheterization. Patient is allergic to statins. Patient clinically with clear lungs, does not appear to be in any fluid overload or CHF exacerbation. Echo see above (3) Hypothyroidism: Code(s): E03.9 - Hypothyroidism, unspecified Status: Acute Assessment and Plan: Patient with known history of hypothyroidism. Ran out of her medications. TSH is high. Resume levothyroxine This could be the the reason for his bradycardia Levothyroxine resumed Need TSH level measured as an outpatient basis in 6-8 weeks (4) Chronic kidney disease, stage 3: Code(s): N18.3 - Chronic kidney disease, stage 3 (moderate) Status: Acute Assessment and Plan: Patient supposedly with history of chronic kidney disease stage 3. Creatinine currently slightly elevated at 1.1. Will continue to monitor. Hold diuretic for now. (5) Essential hypertension: Code(s): I10 - Essential (primary) hypertension Status: Acute Assessment and Plan: Patient with known hypertension, chart reveals patient on amlodipine 5, lisinopril 20 and hydrochlorothiazide. Resume amlodipine and lisinopril. Increase as tolerated. Hydrochlorothiazide placed on hold due to elevated creatinine. Patient is not a candidate for beta-blockers due to bradycardia. Will give p.r.n. doses of hydralazine for elevated blood pressure. If patient with persistently high blood pressure and unable to increase meds due to bradycardia, may be a candidate for pacer placement. Cardiology evaluated Plan POA is ruiz Rodarte Full code Confusion: CT head is negative. Likely delirium. Slowly improving Heparin subQ DVT prophylaxis Subjective Date/time seen: 07/29/22 13:12 Interval history: No overnight events. Feeling better. Little more oriented today. Denies any dizziness or lightheadedness. Work with therapy yesterday telemetry reviewed. Discussed with the nursing staff. Review of Systems Review of Systems: All systems reviewed & are unremarkable except as noted in HPI and below Exam Narrative: Morbidly obese Patient is comfortable, NAD HEENT: eyes are clear and none icteric small tender mildly erythematous nodule on left lower under 2nd molar LUNGS: Normal respiratory effort clear to auscultation ABD: Distended soft nontender Lower
[2022-07-30] VITALS (10 sets, daily range): BP systolic 128–145; BP diastolic 62–77; PULSE 55–69; RESP 17–20; TEMP 36.2–36.8; O2SAT 98–100
[2022-07-30] MEDS: LEVOTHYROXINE SODIUM 150 MCG TABLET BY MOUTH (05:45)
[2022-07-30 06:28] LABS: Basophils Absolute Auto 0.1 K/mm3 (0.0-0.1); Basophils Percent Auto 0.9 % (0.2-1.2); Eosinophils Absolute Auto 0.3 K/mm3 (0-0.3); Eosinophils Percent Auto 5.2 % (0-4.4); Hematocrit 36.9 % (37.0-47.0); Hemoglobin 12.6 g/dL (12.0-15.0); Immature Granulocyte Absolute 0.01 K/mm3 (0.00-0.031); Immature Granulocyte Percent A 0.2 % (0-0.5); Lymphocytes Absolute Auto 1.74 K/mm3 (0.9-3.2); Lymphocytes Percent Auto 30.1 % (18.3-44.2); Mean Corpuscular HGB Conc 34.1 g/dl (32-36); Mean Corpuscular Volume 90.9 fl (80-100); Mean Platelet Volume 12.1 fl (7.4-10.4); Monocytes Absolute Auto 0.4 K/mm3 (0.1-0.6); Monocytes Percent Auto 7.6 % (2.6-8.5); Neutrophils Absolute Auto 3.3 K/mm3 (1.3-6.7); Platelet Count Result 185 k/mm3 (150-375); Red Blood Count 4.06 M/mm3 (4.2-5.4); Red Cell Distribution Width 15.5 % (11.5-14.5); White Blood Count 5.8 K/mm3 (4.5-10.0)
[2022-07-30 06:35] LABS: Alanine Aminotransferase 37 U/L (6-35); Albumin Level 4.7 g/dL (3.5-5.1); Alkaline Phosphatase 43 U/L (38-126); Anion Gap 7 mmol/L (8-16); Aspartate Amino Transferase 88 U/L (14-36); Bilirubin,Total 0.9 mg/dL (0.2-1.3); Blood Urea Nitrogen 15 mg/dL (7-17); Calcium 9.4 mg/dL (8.4-10.2); Carbon Dioxide 23 mmol/L (22-30); Chloride 100 mmol/L (98-107); Estimated CRCL calculation 43 ml/min; Estimated Glomerular Filt Rate 53; Glucose 104 mg/dL (65-110); Magnesium 2.3 mg/dL (1.6-2.3); Potassium 3.5 mmol/L (3.4-5.0); Sodium 130 mmol/L (137-145)
[2022-07-30] MEDS: HEPARIN SODIUM 5,000 UNITS/ML VIAL 5000 UNITS SUB-Q (09:04)
[2022-07-30] MEDS: PANTOPRAZOLE 40 MG TABLET PO (09:04)
[2022-07-30] MEDS: SERTRALINE HCL 50 MG TABLET 100 MG PO (09:04)
[2022-07-30] MEDS: ASPIRIN 325 MG TABLET 650 MG PO (09:04)
[2022-07-30] MEDS: SPIRONOLACTONE 25 MG TABLET PO (09:04)
[2022-07-30] MEDS: AMOXICILLIN/CLAVULANATE K 875-125 MG TAB 1 TABLET PO (09:04)
[2022-07-30] MEDS: amLODIPine BESYLATE 5 MG TABLET PO (09:04)
[2022-07-30] MEDS: lisinopriL 20 MG TABLET PO (09:05)
[2022-07-30] MEDS: MECLIZINE HCL 25 MG TABLET PO (12:18)
--- NOTE | 2022-07-30 14:43 | PM.DS ---
DS: Admitting Diagnosis Discharge Date 07/30/2022 Admitting Diagnosis dizziness DS: Discharge Diagnosis Discharge Diagnosis (1) Dizziness: Code(s): R42 - Dizziness and giddiness Status: Acute (2) CAD (coronary artery disease): Code(s): I25.10 - Atherosclerotic heart disease of [place] coronary artery without angina pectoris Status: Acute (3) Hypothyroidism: Code(s): E03.9 - Hypothyroidism, unspecified Status: Acute (4) Chronic kidney disease, stage 3: Code(s): N18.3 - Chronic kidney disease, stage 3 (moderate) Status: Acute (5) Essential hypertension: Code(s): I10 - Essential (primary) hypertension Status: Acute DS: Summary Hospital Course Hospital Course: # Dizziness: Patient coming in with dizziness and lightheadedness.? Physical exam does not show any focal deficits.? CT scan of the head has been done, official results pending however per ER doctor read no acute lesions seen.? Patient has been having heart rate down to 48. Unknown if this is contributing to her dizziness.? Consulted cardiology for bradyarrhythmia. fall precaution. betablocker was held. color television console monitor showed no high grade av block or pauses. she was orthostatic postiive and likley the reason for her dizziness. Echo 07/25/2022 with EF 60-65% grade 1 diastolic dysfunction severe valvular abnormality # CAD: Patient with known coronary artery disease status post CABG.? Patient with vague symptoms, initially denied any chest pain and then later on saying she has some nonspecific tightness in her chest.? Initial troponin was elevated at 0.45, repeat was 0.49.? Continue to trend her troponins.? Patient did have some new T-wave inversions in the lateral leads on her most recent EKG.? Cardiology was consulted from the ER and recommended to continue with her aspirin. Ideally patient should be on beta blockers however her heart rate is already on the lower side and hence need held. Patient is allergic to statins. Patient clinically with clear lungs, does not appear to be in any fluid overload or CHF exacerbation. Echo see above # Hypothyroidism: Patient with known history of hypothyroidism.?She ran out of her medications.? TSH is high. Resumed levothyroxine. This could be the the reason for his bradycardia Levothyroxine resumed Need TSH level measured as an outpatient basis in 6-8 weeks # Chronic kidney disease, stage 3: Patient supposedly with history of chronic kidney disease stage 3.? Creatinine currently slightly elevated at 1.1.? Will continue to monitor.?this remained stable. # Essential hypertension: Patient with known hypertension, chart reveals patient on amlodipine 5, lisinopril 20 and hydrochlorothiazide.? Resume amlodipine and lisinopril.? Increase as tolerated.? Hydrochlorothiazide placed on hold due to elevated creatinine.? Patient is not a candidate for beta-blockers due to bradycardia.? Will give p.r.n. doses of hydralazine for elevated blood pressure.? If patient with persistently high blood pressure and unable to increase meds due to bradycardia, may be a candidate for pacer placement.? Cardiology evaluated # Full code # left lower gingivitis: given augmentin, finish 7 day course at discharge. # Confusion:? CT head is negative.? Likely delirium.? Slowly improving and almost back to baseline. # Heparin subQ DVT prophylaxis Time Spent with Patient Time attestation: Total time spent providing and/or coordinating discharge services:45 mins Exam Narrative: Morbidly obese Patient is comfortable, NAD HEENT: eyes are clear and none icteric small tender mildly erythematous nodule on left lower under 2nd molar LUNGS: Normal respiratory effort clear to auscultation ABD: Distended soft nontender Lower extremities: no edema cyanosis or clubbing SKIN: nonjaundiced Neuro: grossly intact. DS: Data Data Completed and Pending Completed studies during hospitalization: Exam Type: ? ? CA ec
== END 2022-07-30 17:05 | DRG 149 ==
LOC: ANHED 22:49 → ANHIMU 07-25 04:32 → ANH2MED 07-29 13:09
PROVIDERS: Admitting Provider Internal Medicine; Emergency Provider Emergency Medicine; PCP Internal Medicine Geriatric Medicine; Visit Provider Internal Medicine
DX: R42 Dizziness and giddiness (principal); I25.10 Atherosclerotic heart disease of native coronary artery without angina pectoris; E03.9 Hypothyroidism, unspecified; I12.9 Hypertensive chronic kidney disease with stage 1 through stage 4 chronic kidney disease, or unspecified chronic kidney disease; N18.30 Chronic kidney disease, stage 3 unspecified; K05.10 Chronic gingivitis, plaque induced; I48.0 Paroxysmal atrial fibrillation; R41.0 Disorientation, unspecified; E66.01 Morbid (severe) obesity due to excess calories; Z68.31 Body mass index [BMI] 31.0-31.9, adult; Z95.1 Presence of aortocoronary bypass graft; Z86.73 Personal history of transient ischemic attack (TIA), and cerebral infarction without residual deficits; Z90.49 Acquired absence of other specified parts of digestive tract; Z95.5 Presence of coronary angioplasty implant and graft
CPT/HCPCS: 36415; 70450; 71046; 80053; 81003; 82948; 83735; 83880; 84439; 84443; 84484; 85025; 93005; 97161; 97165; 99285; A9270; C8929; J0360; J1644; J1650; Q9957

== ENCOUNTER 2024-10-28 18:51 | Inpatient (IN) | payer MEDICARE, SELFPAY ==
[2024-10-28] VITALS (17 sets, daily range): BP systolic 147–182; BP diastolic 66–100; PULSE 57–69; RESP 7–18; O2SAT 94–99
--- NOTE | ~2024-10-28 | XR_ITS ---
CHEST RADIOGRAPH CLINICAL HISTORY: L sided facial droop . COMPARISON: 07/24/2022 TECHNIQUE: Single portable view of the chest. FINDINGS Sternal wires and mediastinal clips are identified, the wires are midline and intact. The remainder of the cardiomediastinal silhouette is otherwise unremarkable. The lungs are clear. IMPRESSION: No focal infiltrate or effusion. Reviewed, dictated and finalized at location A.
--- NOTE | ~2024-10-28 | CT_ITS ---
EXAMINATION: CTA brain carotid DATE: 10/29/2024 5:55 CDT INDICATION: Left-sided facial numbness. TECHNIQUE: Computed tomographic angiography (CTA) of the head was performed without and with 100 mL O mnipaque-350 intravenous contrast. CTA of the neck was performed with intravenous contrast. The dose- length product was 1046.16 mGy-cm. Maximum intensity projection and volume rendered 3D-reconstruction s were created by the technologist on a separate workstation. Automated exposure control and iterativ e reconstruction technique were employed. COMPARISON: CT brain dated 10/28/2024 FINDINGS: HEAD CTA: There is mild stenosis of the cavernous segment of the right internal carotid artery. The r ight anterior cerebral artery supplied via the anterior communicating artery. No aneurysm. There is s ignificant atherosclerosis cavernous segments of both carotid arteries. The vertebral arteries are co dominant. No occlusion. NECK CTA: There is atherosclerosis of the aortic arch. There is atherosclerosis of the proximal inter nal carotid artery and common carotid bulbs. No evidence for dissection. No significant stenosis at t he origin of the carotid or vertebral arteries. No significant paraspinal soft tissue abnormality. Th ere are groundglass opacities throughout the upper lobes with mosaic pattern. There is 50% stenosis of the proximal right internal carotid artery relative to normal distal artery lumen diameter (NASCET criteria). There is 23% stenosis of the proximal left internal carotid artery relative to normal distal artery lumen diameter. IMPRESSION: 1. 50% stenosis of the proximal right internal carotid artery relative to normal distal artery lumen diameter (NASCET criteria). 2. 23% stenosis of the proximal left internal carotid artery relative to normal distal artery lumen d iameter. 3: Mild-moderate stenosis of the right internal carotid artery at the cavernous segment secondary to atherosclerosis. Considerations include hypersensitivity pneumonitis, respiratory bronchiolitis, smok ing-related bronchiolar disease. Reviewed, dictated and finalized at location A. IMPRESSION: 1. 50% stenosis of the proximal right internal carotid artery relative to jaylin l distal artery lumen diameter (NASCET criteria). 2. 23% stenosis of the proximal left internal carotid artery relative to normal distal artery lumen diameter. 3: Mild-moderate stenosis of the right internal carotid artery at the cavernous segment secondary to atherosclerosis. Considerations include hypersensitivity pneumonitis, respiratory bronchiolitis, smoking-related bronchiolar disease.
--- NOTE | ~2024-10-28 | MR_ITS ---
EXAMINATION: MR brain/brain stem wo/w con DATE: 10/30/2024 15:45 INDICATION: Stroke with left-sided facial droop TECHNIQUE: Magnetic resonance imaging (MRI) of the brain and brainstem was performed without intraven ous contrast. Sequences included sagittal and axial T1-weighted SE, axial diffusion-weighted FS SE, a xial 3D SWAN, axial T2-weighted FLAIR, and axial T2-weighted FSE. Postcontrast axial and coronal T1-w eighted SE was obtained. Apparent diffusion coefficient (ADC) maps were created. COMPARISON: Head CT dated 10/28/[address] angiogram dated 10/29/2024 FINDINGS: There are no areas of restricted diffusion to suggest acute infarction. Small old lacunar infarct in the left parietal lobe periventricular white matter. No intracranial hemorrhage or abnormal intracran ial mass lesion. There are scattered areas of nonspecific increased T2-weighted signal intensity in t he cerebral white matter, predominantly involving the deep and periventricular white matter. Small fo cus of susceptibility artifact at the junction of the left frontal lobe and anterior insula consisten t with sequela of chronic microhemorrhage such as in the setting of hypertension. There are no intrap arenchymal signal abnormalities seen on the other pulse sequences. The ventricles are symmetric and n ormal in size. There are no abnormal extra-axial fluid collections. Flow voids are seen in the cerebr al arteries on the T2-weighted sequences consistent with their expected patency. Visualized orbits an d soft tissues are unremarkable. Mild mucosal thickening the left maxillary and bilateral ethmoid sin uses. There are no areas of abnormal enhancement on the post contrast images. IMPRESSION: 1. Small old lacunar infarct in the left parietal lobe periventricular white matter. No acute intracr anial process or abnormally enhancing brain lesions. 2. Moderate scattered periventricular predominant calcific white matter T2 hyperintensity consistent with chronic small vessel ischemic disease. 2. Single small focus of susceptibility artifact at the junction of the left frontal lobe and anterio r insula consistent with sequela of chronic microhemorrhage as can be seen in the setting of hyperten karlo. Reviewed, dictated and finalized at location A. IMPRESSION: 1. Small old lacunar infarct in the left parietal lobe periventricular white ma tter. No acute intracranial process or abnormally enhancing brain lesions. 2. Moderate scattered periventricular predominant calcific white matter T2 hype rintensity consistent with chronic small vessel ischemic disease. 2. Single small focus of susceptibility artifact at the junction of the left fr ontal lobe and anterior insula consistent with sequela of chronic microhemorrha ge as can be seen in the setting of hypertension.
--- NOTE | ~2024-10-28 | CT_ITS ---
EXAMINATION: CT brain wo con DATE: 10/28/2024 19:24 INDICATION: Slurred speech. Left facial droop. TECHNIQUE: Computed tomography (CT) of the head was performed without intravenous contrast. Sagittal and coronal reconstructions were performed. The mA was adjusted according to patient size. Iterative reconstruction technique was employed. The dose-length product was 681.00 mGy-cm. COMPARISON: head CT dated 07/25/2022 FINDINGS: No acute intracranial hemorrhage, acute infarction or abnormal extra axial fluid collection. Stable a ppearance of mild scattered white matter hypoattenuation consistent with chronic small vessel ischemi c disease. Ventricles are normal and symmetric. No mass/mass effect. Intracranial calcified cerebral atherosclerosis is noted. The orbits, paranasal sinuses and mastoid air cells are normal. IMPRESSION: 1. Stable appearance of mild scattered white matter hypoattenuation consistent with chronic small ves stephany ischemic disease. No acute intracranial process. Reviewed, dictated and finalized at location A. IMPRESSION: 1. Stable appearance of mild scattered white matter hypoattenuation consistent with chronic small vessel ischemic disease. No acute intracranial process.
--- OUTSIDE RECORDS SUMMARY | 2024-10-28 18:54 | XMS_ITS | Encounter Summary ---
Author Organization [facility] Address [address] [place] [address] Phone Care Team Providers Care Bar Roller Name Role Phone Sarah Holt MD Unavailable [phone] Nelly Galindo MD Unavailable [phone] Maria D Martínez MD Primary Care Provider [phone] Bharat Moscoso MD Unavailable Moshe Pineda DO Unavailable David Sherman DO Unavailable Timothy Basurto MD Unavailable [phone] Claude Patrick MD Unavailable Aaron Bruno MD Unavailable [phone] Encounter Details Date Type Department Care Team (Late st Contact Info) Description 09/08/2019 Orders Only [facility] [address] [place] [address] Scanning, Provider Social History Tobacco Use Types Packs/Day Years Used Date Smoking Tobacco: Never Smokeless Tobacco: Never Alcohol Use Standard Drinks/Week Comments No 0 (1 standard drink = 0.6 oz pur e alcohol) Comments No Sex and Gender Information Value Date Recorded Sex Assigned at Not on file Legal Sex Female 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 Gender Identity Not on file Sexual Orientation Not on file documented as of this encounter Plan of Treatment Not on file documented as of this encounter Procedures Procedure Name Priority Date/Time Associated Diagnosis Comments CARDIOLOGY DOCUMENT SCAN 09/08/2019 documented in this encounter Results * SCAN - CARDIOLOGY (09/08/2019) Anatomical Region Laterality Modality Other us Provider Scanning CV CARDIAC SERVICES PROCEDURES Final Result documented in this encounter Visit Diagnoses Not on filedocumented in this encounter Care Teams Bar Roller Relationship Specialty Start Date End Date Maria D Martínez MD PCP - General Internal Medicine 03/22/17 Sarah Holt MD Gastroenterology 10/21/16 Nelly Galindo MD Cardiovascular Disease 10/21/16 09/10/22 Bharat Moscoso MD [address] [place] [address] [place] [address] Consulting Physician Neurology 02/25/18 09/10/22 Moshe Pineda DO [address] [place] [address] [place] [address] Cardiovascular Disease 02/25/18 09/10/22 David Sherman DO [address] [place] [address] [place] [address] Consulting Physician Cardiology 04/24/18 09/10/22 Timothy Basurto MD [address] [facility] [place] [address] Cardiology 11/06/19 09/10/22 Claude Patrick MD [address] [facility] [place] [address] Consulting Physician Pulmonary Disease 11/06/19 09/10/22 Aaron Bruno MD [address] [facility] [address] [address] Consulting Physician Internal Medicine 07/30/22 documented as of this encounter
--- OUTSIDE RECORDS SUMMARY | 2024-10-28 18:54 | XMS_ITS | Encounter Summary ---
Author Organization [facility] Address [address] [email or web address] [address] Phone Care Team Providers Care Circuit Walker Name Role Phone Sarah Holt MD Unavailable [phone] Nelly Galindo MD Unavailable [phone] Maria D Martínez MD Primary Care Provider [phone] Bharat Moscoso MD Unavailable Moshe Pineda DO Unavailable David Sherman DO Unavailable [phone] Timothy Basurto MD Unavailable [phone] Claude Patrick MD Unavailable Aaron Bruno MD Unavailable [phone] Encounter Details Date Type Department Care Team (Late st Contact Info) Description 09/04/2019 Orders Only [facility] [address] [place] [address] Scanning, Provider Social History Tobacco Use Types Packs/Day Years Used Date Smoking Tobacco: Never Smokeless Tobacco: Never Alcohol Use Standard Drinks/Week Comments No 0 (1 standard drink = 0.6 oz pur e alcohol) Comments No Sex and Gender Information Value Date Recorded Sex Assigned at Not on file 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 Gender Identity Not on file Sexual Orientation Not on file documented as of this encounter Plan of Treatment Not on file documented as of this encounter Procedures Procedure Name Priority Date/Time Associated Diagnosis Comments CARDIOLOGY DOCUMENT SCAN 09/04/2019 documented in this encounter Results * SCAN - CARDIOLOGY (09/04/2019) Anatomical Region Laterality Modality Other us Provider Scanning CV CARDIAC SERVICES PROCEDURES Final Result documented in this encounter Visit Diagnoses Not on filedocumented in this encounter Care Teams Circuit Walker Relationship Specialty Start Date End Date Maria D Martínez MD PCP - General Internal Medicine 03/22/17 Sarah Holt MD Gastroenterology 10/21/16 Nelly Galindo MD Cardiovascular Disease 10/21/16 09/10/22 Bharat Moscoso MD [address] [place] [address] [place] [address] Consulting Physician Neurology 02/25/18 09/10/22 Moshe Pineda DO [address] [place] [address] [place] [address] Cardiovascular Disease 02/25/18 09/10/22 David Sherman DO [address] [place] [address] [place] [address] Consulting Physician Cardiology 04/24/18 09/10/22 Timothy Basurto MD [address] [facility] [address] Cardiology 11/06/19 09/10/22 Claude Patrick MD [address] [place] [address] Consulting Physician Pulmonary Disease 11/06/19 09/10/22 Aaron Bruno MD [address] [facility] [address] [address] Consulting Physician Internal Medicine 07/30/22 documented as of this encounter
--- OUTSIDE RECORDS SUMMARY | 2024-10-28 18:54 | XMS_ITS | Referral Summary ---
Author Organization [facility] Address [address] [place] [address] Care Team Providers Care Tag Meter Operator Name Role Phone Sarah Holt MD Unavailable [phone] Maria D Martínez MD Primary Care Provider [phone] Aaron Bruno MD Unavailable [phone] Allergies Active Allergy Reactions Criticality Noted Date Comments Atorvastatin Swelling,Rash Medium 01/03/2018 Feet swelling and rash on feet/hands Ezetimibe Rash Medium 08/09/2016 Reaction: Rash, Lamotrigine Other (See comments) Low 09/11/2022 Developed confusion and tiredness even on 25 mg Sulfa (Sulfonamide Antibiotics) Other (See comments) Low Reaction: UNKNOWN, Medications evolocumab (Repatha SureClick) 140 mg/mL pen injectorIndication s:atherosclerotic cardiovascular disease,hyperchole sterolemia Inject 1 mL (140 mg total) under the skin every 2 (two) weeks 2 mL 2 09/12/19 23 Active amLODIPine (NORVASC) 5 mg tabletIndications: Benign hypertension Take 1 tablet (5 mg total) by mouth daily 90 tablet 1 02/22/20 23 Active cholecalciferol (VITAMIN D-3) 2000 unit tablet Take 1 tablet (2,000 Units total) by mouth daily 90 tablet 2 02/22/20 Active cyanocobalamin (vitamin B-12) 1,000 mcg tabletIndications: History of Goodman's esophagus,B12 deficiency Take 1 tablet (1,000 mcg total) by mouth daily 90 tablet 2 02/22/20 Active lisinopriL (PRINIVIL,ZESTRIL) 20 mg tabletIndications: Benign hypertension Take 1 tablet (20 mg total) by mouth nightly 90 tablet 1 02/22/20 Active sertraline (ZOLOFT) 100 mg tabletIndications: Central sleep apnea Take 1 tablet (100 mg total) by mouth daily 90 tablet 1 02/22/20 Active famotidine (PEPCID) 20 mg tabletIndications: gastroesophageal reflux disease Take 1 tablet (20 mg total) by mouth 2 (two) times a day 180 tablet 1 02/22/20 Active levothyroxine (SYNTHROID) 175 mcg tabletIndications: hypothyroidism Take 1 tablet (175 mcg total) by mouth 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 Workup for dizziness and symptomatic bradycardia was essentially unremarkable. Medication reconciliation completed in office today. See plans else where for bradycardia, dizziness, and hypothyroidism. Follow in 6 weeks. Deep vein thrombosis (DVT) w ith pulmonary embolism present on admission 02/16/2022 Status post five vessel coronary artery bypass 1 04/18/2021 Dental disease 02/16/2022 Statin intolerance 06/14/2020 Moderate vascular dementia w ithout behavioral disturbance, psychotic disturbance, mood disturbance, or anxiety 06/14/2020 Overview (09/07/2022): HEAD-CT 2021 IMPRESSION: 1. No acute intracranial findings. 2. Mild age-related atrophy and chronic small vessel ischemic type change. 10/14/2019 1:08 PM Bharat Garnett M.D. Diastolic congestive heart failure 11/02/2019 Assessment & Plan (05/03/2020 2:24 PM BURNT LIME DRAWER): Heart failure is compensated at present. Continue with lisinopril, metoprolol and spironolactone. Currently she is not requiring lobe diuretics. Assessment & Plan (02/06/2020 7:05 PM CDT): Her heart failure is compensated at present. She is off the diuretics. She is following with Cardiology. Assessment & Plan (11/02/2019 5:16 PM CDT): Patient has diastolic dysfunction. Her diuretics were stopped because of orthostatic hypertension. She is following with Cardiology. History of pulmonary embolism 11/02/2019 Overview (02/10/2020): During hospitalization for acute coronary syndrome October 2019 requiring long-term anticoagulation Assessment & Plan (05/03/2020 2:23 PM BURNT LIME DRAWER): Patient has acute pulmonary embolism was likely due to prolonged hospitalization and surgery. She is off the Eliquis and is completely asymptomatic. Assessment & Plan (02/06/2020 7:06 PM CDT): Continue with Eliquis until March. I advised patient and her day care aide that after March Eliquis can be stopped. Assessment & Plan (11/02/2019 5:16 PM CDT): Patient had provoked pulmonary embolism after surgery. Will continue with full anticoagulation for 3-6 months. Paroxysmal atrial fibrillation 09/24/2019 Stented coronary artery 09/24/2019 Gastroesophageal reflux disease with stricture 0 09/24/2019 09/11/2022 Central sleep apnea 09/23/2017 Dizziness 09/23/2017 Assessment & Plan (08/05/2022 12:05 PM CDT): Intermittent positional dizziness. Recent head CT upon hospital admission was unremarkable (scanned in from [facility]). Symptomatic bradycardia during that visit, no a-fib-see plan elsewhere. Soft BP in office today at 100/62(65). No acute findings on exam, neuro intact, heart sounds regular without murmur. Lungs clear. No edema. Suspect dehydration VS symptomatic bradycardia VS rhinitis. Will stop spironolactone, continue lisinopril as rxd. Patient states good Im tired of running to the bathroom all the time. Keep follow with signal integrity engineer in 1-2 weeks. Aim for 6 8oz glasses of water per day. Follow in this office in 6 weeks with repeat thyroid testing. 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 Recurrent syncope 10/21/2016 Overview (10/21/2016): Recurrent syncope referred to Cardiology for further EP evaluation July 2016-- did not go to Cardiology. Refused to wear 21 day monitor April 2016. Hx of adenomatous colonic polyps 10/21/2016 Overview (10/21/2016): Dr. Holt, last colonoscopy 2012, 2 polyps Prediabetes 03/22/2014 History of Goodman's esophagus 08/22/2013 Overview (10/21/2016): Dr. Holt 2010 biopsies positiveBarretts esophagus, Repeat 2013 esophagitis only Multiple-type hyperlipidemia 08/22/2013 Overview (07/12/2016): Hyperlipidemia Benign hypertension 08/22/2013 Overview (07/12/2016): Benign essential HTN Hypothyroidism, adult 08/22/2013 Overview (07/12/2016): Hypothyroid Assessment & Plan (08/05/2022 11:34 AM CDT): Recent TSH from 06/15/22 was 225, T4 was 0.1. Daughter confirms staff is giving her her medication. No obvious symptoms, no acute exam findings. Will increase to 150mcg daily and re-check in 6 weeks. Adenomatous polyp of colon 03/09/2013 Overview (07/12/2016): Adenomatous colon polyp Bradycardia Assessment & Plan (08/05/2022 12:00 PM CDT): Bradycardia found upon recent hospital admission. EKG showed sinus rene with old ST depression in V3, V4-posterior EKG was done and found no ST depression. No a-fib or PACs. ECHO at [facility] was unremarkable, EF 60-65%, no valvular issues, no pulmonary HTN. Hyponatremia was treated with IVF, Labs stable upon discharge BnP was only 427. HR regular upon auscultation today, no murmurs. BP soft at 100/62 (65) after stopping Metoprolol upon discharge last week. No acute findings on exam. Will stop spironolactone due to soft BP, continue lisinopril and ASA as rxd. Keep follow with Dr. Pineda in 1-2 weeks. Follow in this office in 6 weeks with repeat thyroid testing. Stenosis of right carotid artery Resolved Problems Problem Noted Date Diagnosed Date Resolved Date NSTEMI, initial episode of care 02/16/2022 09/11/2022 Chronic systolic congestive heart failure 11/02/2019 11/02/2019 Hives 09/23/2017 02/17/2020 Recurrent UTI 03/22/2017 02/17/2020 History of TIA (transient ischemic attack) 10/21/2016 10/21/2016 Overview (10/21/2016): Hospitalized 2006 with no residual neurologic deficit Restless legs syndrome 08/22/201302/16 Overview (07/12/2016): Restless leg syndrome HASEEB (obstructive sleep apnea) 08/22/2013 11/02/2019 Overview (10/21/2016): Central Sleep apnea Detected in the and treated with Zoloft Near syncope 02/17/2020 Immunizations Immunization Administration Dates Next Due Influenza, Quad, Adjuvantated, Intramuscular Influenza, Quadrivalent, Hig h Dose, Preservative Free, Intrr 02/16/2022 Influenza, Quadrivalent, Split, Intramuscular Influenza, Split 01/27/2013 Influenza, Trivalent, High D ose, Split, Preservative Free, Intramuscular 02/19/2017 Influenza, Trivalent, IM (MDV) 02/19/2017,2014 Pfizer SARS-CoV-2 Monovalent Vaccination (12+ Yrs) PURPLE 05/04/2020,04/13/2020 Pneumococcal Conjugate PCV 13 04/13/2014 Pneumococcal Polysaccharide PPV23 06/27/2015, TD Preservative Free 09/03/1997 Tdap 07/23/2016,06/05/2006 ZOSTER LIVE 09/05/2009 Social History Tobacco Use Types Packs/Day Years Used Date Smoking Tobacco: Never Smokeless Tobacco: Never Alcohol Use Standard Drinks/Week Comments No 0 (1 standard drink = 0.6 oz pur e alcohol) PHQ-2 Answer Date Recorded PHQ-2 Total Score (If total score is 3 or more points, staff should administer the PHQ-9) 1 02/21/2023 Comments No Sex and Gender Information Value Date Recorded Sex Assigned at Not on file Legal Sex Female 6:51 PM BURNT LIME DRAWER Gender Identity Not on file Sexual Orientation Not on file Last Filed Vital Signs Vital Sign Reading Time Taken Comments Blood Pressure 144/70 02/21/2023 3:08 PM BURNT LIME DRAWER Pulse 52 02/21/2023 3:08 PM BURNT LIME DRAWER Temperature 36.1 C (96.9 F) 02/21/2023 3:08 PM BURNT LIME DRAWER Respiratory Rate 16 02/21/2023 3:08 PM BURNT LIME DRAWER Oxygen Saturation 97% 02/21/2023 3:08 PM BURNT LIME DRAWER Inhaled Oxygen Concentration - - Weight 81.2 kg (179 lb) 02/21/2023 3:08 PM BURNT LIME DRAWER Height 162.6 cm (5' 4) 02/21/2023 3:08 PM BURNT LIME DRAWER Body Mass Index 30.73 02/21/2023 3:08 PM BURNT LIME DRAWER Plan of Treatment Not on file Insurance MEDICARE MEDICARE Advance Directives For more information, please contact: [phone] Documents on File Type Date Recorded Patient Hand Tube Winder Expl anation ADVANCE DIRECTIVE 11/05/2021 POWER OF A TTORNEY-MEDICAL ADVANCE DIRECTIVE 11/06/2019 DNR ADVANCE DIRECTIVE 11/06/2019 POWER OF A TTORNEY-MEDICAL ADVANCE DIRECTIVE 11/06/2019 CODE STATU S DETERMINATION [facility] ADVANCE DIRECTIVE 11/06/2019 POLST/DNR ADVANCE DIRECTIVE 09/28/2019 POLST/DNR * Full Code (Latest Code Status on File) Date Activated Date Inactivated Comments 02/22/2018 7:44 PM 02/25/2018 7:37 PM Healthcare Agents on File Name Relationship Healthcare Agent Relationshi p Communication Cayden Trent Other Health Care Agent Care Teams Tag Meter Operator Relationship Specialty Start Date End Date Maria D Martínez MD PCP - General Internal Medicine 03/22/17 Sarah Holt MD Gastroenterology 10/21/16 Aaron Bruno MD [address] [facility] [address] [place] [address] Consulting Physician Internal Medicine 07/30/22
--- OUTSIDE RECORDS SUMMARY | 2024-10-28 18:54 | XMS_ITS | Encounter Summary ---
Author Organization [facility] Address [address] [place] [address] Phone Care Team Providers Care Project Manager Senior Name Role Phone Sarah Holt MD Unavailable [phone] Nelly Galindo MD Unavailable [phone] Maria D Martínez MD Primary Care Provider [phone] Bharat Moscoso MD Unavailable [phone] Moshe Pineda DO Unavailable [phone] David Sherman DO Unavailable Timothy Basurto MD Unavailable [phone] Claude Patrick MD Unavailable Aaron Bruno MD Unavailable [phone] Encounter Details Date Type Department Care Team (Late st Contact Info) Description 10/21/2019 Orders Only [facility] [address] [place] [address] Scanning, Provider Social History Tobacco Use Types Packs/Day Years Used Date Smoking Tobacco: Never Smokeless Tobacco: Never Alcohol Use Standard Drinks/Week Comments No 0 (1 standard drink = 0.6 oz pur e alcohol) Comments No Sex and Gender Information Value Date Recorded Sex Assigned at Not on file 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 Gender Identity Not on file Sexual Orientation Not on file documented as of this encounter Plan of Treatment Not on file documented as of this encounter Procedures Procedure Name Priority Date/Time Associated Diagnosis Comments SCAN - LABS 10/21/2019 documented in this encounter Results * SCAN - LABS (10/21/2019) us Provider Scanning Final Result documented in this encounter Visit Diagnoses Not on filedocumented in this encounter Care Teams Project Manager Senior Relationship Specialty Start Date End Date Maria D Martínez MD PCP - General Internal Medicine 03/22/17 Sarah Holt MD Gastroenterology 10/21/16 Nelly Galindo MD Cardiovascular Disease 10/21/16 09/10/22 Bharat Moscoso MD [address] [place] [address] [place] [address] Consulting Physician Neurology 02/25/18 09/10/22 Moshe Pineda DO [address] [place] [address] [place] [address] Cardiovascular Disease 02/25/18 09/10/22 David Sherman DO [address] [place] [address] [place] [address] Consulting Physician Cardiology 04/24/18 09/10/22 Timothy Basurto MD [address] [facility] [place] [address] Cardiology 11/06/19 09/10/22 Claude Patrick MD [address] [facility] [place] [address] Consulting Physician Pulmonary Disease 11/06/19 09/10/22 Aaron Bruno MD [address] [facility] [address] [address] Consulting Physician Internal Medicine 07/30/22 documented as of this encounter
--- OUTSIDE RECORDS SUMMARY | 2024-10-28 18:54 | XMS_ITS | Encounter Summary ---
Author Organization [facility] Address [address] [place] [address] Phone Care Team Providers Care Roustabout Pusher Name Role Phone Sarah Holt MD Unavailable [phone] Nelly Galindo MD Unavailable [phone] Maria D Martínez MD Primary Care Provider [phone] Bharat Moscoso MD Unavailable Moshe Pineda DO Unavailable David Sherman DO Unavailable [phone] Timothy Basurto MD Unavailable Claude Patrick MD Unavailable Aaron Bruno MD Unavailable Encounter Details Date Type Department Care Team (Late st Contact Info) Description 02/17/2021 Orders Only [facility] [address] [place] [address] Maria D Martínez MD [address] [place] [address] Social History Tobacco Use Types Packs/Day Years Used Date Smoking Tobacco: Never Smokeless Tobacco: Never Alcohol Use Standard Drinks/Week Comments No 0 (1 standard drink = 0.6 oz pur e alcohol) Comments No Sex and Gender Information Value Date Recorded Sex Assigned at Not on file Legal Sex Female 6:51 PM RN SURGERY ICU Gender Identity Not on file Sexual Orientation Not on file documented as of this encounter Plan of Treatment Not on file documented as of this encounter Procedures Procedure Name Priority Date/Time Associated Diagnosis Comments SCAN - RADIOLOGY/IMAGING 02/17/2021 documented in this encounter Results * SCAN - RADIOLOGY/IMAGING (02/17/2021) Anatomical Region Laterality Modality Other Maria D Martínez MD Final Resu lt documented in this encounter Visit Diagnoses Not on filedocumented in this encounter Care Teams Roustabout Pusher Relationship Specialty Start Date End Date Maria D Martínez MD PCP - General Internal Medicine 03/22/17 Sarah Holt MD Gastroenterology 10/21/16 Nelly Galindo MD Cardiovascular Disease 10/21/16 09/10/22 Bhaart Moscoso MD [address] [place] [address] [place] [address] Consulting Physician Neurology 02/25/18 09/10/22 Moshe Pineda DO [address] [place] [address] [place] [address] Cardiovascular Disease 02/25/18 09/10/22 David Sherman DO [address] [place] [address] [place] [address] Consulting Physician Cardiology 04/24/18 09/10/22 Timothy Basurto MD [address] [facility] [place] [address] Cardiology 11/06/19 09/10/22 Claude Patrick MD [address] [facility] [place] [address] Consulting Physician Pulmonary Disease 11/06/19 09/10/22 Aaron Bruno MD [address] [facility] [address] [facility] [address] [place] [address] Consulting Physician Internal Medicine 07/30/22 documented as of this encounter
--- OUTSIDE RECORDS SUMMARY | 2024-10-28 18:54 | XMS_ITS | Clinical Summary ---
Author Organization [facility] Address [address] [place] [address] Care Team Providers Care Order Entry Administrator Name Role Phone Unavailable Primary Care Provider Unavailabl e Source Comments [facility],non-owned Affiliates and Associated Physician Practices is amultiple site organization consisting of ambulatory clinics and hospital sitesin [place], [place], [place] and [place]. This disclosure is being madepursuant to the Care Everywhere program and may not contain all information available regarding this patient. 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 Gender Identity Not on file Sexual Orientation Not on file Plan of Treatment Health Maintenance Due Date Last Done Comments BONE DENSITY TESTING 1942 DTAP/TDAP/TD VACCINES (1 - Tdap) 1961 PNEUMOCOCCAL VACCINE 50+ (1 of 1 - PCV) 1992 ZOSTER VACCINE (1 of 2) 1992 Respiratory Syncytial Virus (RSV) Vaccine Pt: or over 60 yrs (1 - 1-dose 75+ series) 2017 COVID-19 VACCINE (1 - season) 2023 DEPRESSION SCREENING 04/08/2024 INFLUENZA VACCINE (#1) 2024 7, 01/07/2016, 04/13/2014, Additional history exists HEPATITIS B VACCINE Aged Out No longe r eligible based on patient's age to complete this topic HIB VACCINE Aged Out No longer eligi ble based on patient's age to complete this topic HPV VACCINE Aged Out No longer eligi ble based on patient's age to complete this topic MENINGOCOCCAL (Group B) VACCINE SHARED DECISION-MAKING Aged Out No longer eligible based on patient's age to complete this topic MENINGOCOCCAL GROUPS A/C/Y/W VACCINE Aged Out No longer eligible based on patient's age to complete this topic Insurance MEDICARE
--- OUTSIDE RECORDS SUMMARY | 2024-10-28 18:54 | XMS_ITS | Clinical Summary ---
Author Organization [facility] Medical Office Building B Address [address] [place] [address] Care Team Providers Care Yarn Bleaching Machine Operator Name Role Phone Sarah Holt MD Unavailable [phone] Maria D Martínez MD Primary Care Provider [phone] Aaron Bruno MD Unavailable [phone] Allergies Active Allergy Reactions Criticality Noted Date [...] 1 tablet (175 mcg total) by mouth sales associate cashier before breakfast One tablet by mouth daily, [...] 11/02/2019 Assessment & Plan (05/03/2020 2:24 PM ICT SUPPORT ENGINEER): Heart failure is compensated at present. Continue [...] anticoagulation Assessment & Plan (05/03/2020 2:23 PM ICT SUPPORT ENGINEER): Patient has acute pulmonary embolism was likely due to prolonged hospitalization and surgery. She is off the Eliquis and is completely asymptomatic. Assessment & Plan (02/06/2020 7:06 PM CDT): Continue with Eliquis until March. I advised patient and her sole conforming machine operator that after March Eliquis can be stopped. [...] hospital admission was unremarkable (scanned in from [facility]). Symptomatic bradycardia during that visit, no a-fib-see plan elsewhere. Soft BP in office today at 100/62(65). No acute findings on exam, neuro intact, heart sounds regular without murmur. Lungs clear. No edema. Suspect dehydration VS symptomatic bradycardia VS rhinitis. Will stop spironolactone, continue lisinopril as rxd. Patient states good Im tired of running to the bathroom all the time. Keep follow with insurance agency sales manager in 1-2 weeks. Aim for 6 8oz [...] depression. No a-fib or PACs. ECHO at [place] was unremarkable, EF 60-65%, no valvular issues, [...] Free 09/03/1997 Tdap 07/23/2016,06/05/2006 ZOSTER LIVE 09/05/2009 Surgical History Surgery Date Site/Laterality Comments OTHER SURGICAL HISTORY 04/08/1982 - 04/07/1983 left bunionectomy OTHER SURGICAL HISTORY 04/08/1998 - 04/07/1999 TVH and bladder repair SINUS SURGERY 04/08/2003 - 04/07/2004 sinus surgery OTHER SURGICAL HISTORY 04/08/2006 - 04/07/2007 bladder/cystocele repair UMBILICAL HERNIA REPAIR 04/08/2007 - 04/07/2008 umbilical hernia OTHER SURGICAL HISTORY 04/08/2008 - 04/07/2009 RCA stent APPENDECTOMY 04/08/1963 - 04/07/1964 Appendectomy CHOLECYSTECTOMY 04/08/1963 - 04/07/1964 Cholecystectomy ENDOMETRIAL BIOPSY CARDIAC SURGERY 09/08/2019 Quad bypass ESOPHAGOSCOPY / EGD 02/08/2013 (+) Dr. Holt gastritis no Barretts ESOPHAGOSCOPY / EGD 04/08/2010 - 05/08/2010 (+) Dr. 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 Refused to wear 21 day monitor April 2016. 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 History of TIA (transient is chemic attack) 10/21/2016 Hospitalized 2005 with no re sidual neurologic deficit Hypothyroidism Functional bowel disease Menopause 1987 Headache Umbilical hernia Sinusitis Uterine prolapse mild Rectocele SVT (supraventricular tachycardia) with cva symptoms TIA (transient ischemic attack) 05/2003 right hemisphere Positive BIMAL (antinuclear antibody) Restless leg syndrome Hypertension Family History Medical History Relation Name Comments Heart attack Father Diabetes Mother Heart failure Mother Hypothyroidism Mother Thyroid cancer Other uncle Hypothyroidism Sister Relation Name Status Comments Father Mother Other uncle Alive Sister Social History Tobacco Use Types Packs/Day Years [...] on file Legal Sex Female 6:51 PM ICT SUPPORT ENGINEER Gender Identity Not on file Sexual Orientation Not on file Obstetrics History Last Filed Vital Signs Vital Sign Reading Time Taken Comments Blood Pressure 144/70 02/21/2023 3:08 PM ICT SUPPORT ENGINEER Pulse 52 02/21/2023 3:08 PM ICT SUPPORT ENGINEER Temperature 36.1 C (96.9 F) 02/21/2023 3:08 PM ICT SUPPORT ENGINEER Respiratory Rate 16 02/21/2023 3:08 PM ICT SUPPORT ENGINEER Oxygen Saturation 97% 02/21/2023 3:08 PM ICT SUPPORT ENGINEER Inhaled Oxygen Concentration - - Weight 81.2 kg (179 lb) 02/21/2023 3:08 PM ICT SUPPORT ENGINEER Height 162.6 cm (5' 4) 02/21/2023 3:08 PM ICT SUPPORT ENGINEER Body Mass Index 30.73 02/21/2023 3:08 PM ICT SUPPORT ENGINEER Plan of Treatment Health Maintenance Due Date Last Done Comments Osteoporosis Screening-Bone Density Scan 1940 Hepatitis B Screening 1960 Zoster Vaccine (2 of 3) 10/31/2009 09/05/2009 Covid-19 Vaccine ( - 2023-2 5 season) 2023 05/04/2020, 04/13/2020 Depression Screening 02/22/2024 02/21/2023, 02/17/20 22 Fall Risk Assessment 02/22/2024 02/21/2023, 02/17/20 22 Well Visit 65+ 02/22/2024 02/21/2023, 02/06, 09/23/2017 Influenza Vaccine (#1) 2024 , 02/04/2020, 02/19/2017, Additional history exists DTaP/Tdap/Td Vaccine (3 - Td or Tdap) 07/23/2026 07/23/2016, 06/05/2006, 09/03/1997 Pneumococcal vaccine 65+ Completed 016, 04/13/2014, 09/05/2006 [place] [address] [facility] MEDICARE MEDICARE MEDICARE MEDICARE Advance Directives For more information, please contact: [phone] Documents on File Type Date Recorded Patient Transit Planning Manager Expl anation ADVANCE DIRECTIVE 11/05/2021 POWER OF A TTORNEY-MEDICAL ADVANCE DIRECTIVE 11/06/2019 DNR ADVANCE DIRECTIVE 11/06/2019 POWER OF A TTORNEY-MEDICAL ADVANCE DIRECTIVE 11/06/2019 CODE STATU S DETERMINATION [facility] ADVANCE DIRECTIVE 11/06/2019 POLST/DNR ADVANCE DIRECTIVE 09/28/2019 POLST/DNR * Full Code (Latest Code Status on File) Date Activated Date Inactivated Comments 02/22/2018 7:44 PM 02/25/2018 7:37 PM Healthcare Agents on File Name Relationship Healthcare Agent Relationshi p Communication Cayden Harder Other Health Care Agent Care Teams Yarn Bleaching Machine Operator Relationship Specialty Start Date End Date Maria D Martínez MD PCP - General Internal Medicine 03/22/17 Sarah Holt MD Gastroenterology 10/21/16 Aaron Bruno MD [address] [place] [address] Consulting Physician Internal Medicine 07/30/22
--- OUTSIDE RECORDS SUMMARY | 2024-10-28 18:54 | XMS_ITS | Continuity of Care Document ---
Author Organization [facility] Address [address] [place] [address] [place] [address] Phone Care Team Providers Care Travelers' Aid Worker Name Role Phone Jorge L Carmona MD Unavailable Unavailable Allergies, Adverse Reactions, Alerts Substance Reaction Status Criticality Sulfa (Sulfonamide Antibiotics) Active No Information Medications Medication Instructions Dosage Effective Dates (start - stop) Status Comments ropinirole 0.5 mg tablet take 1 tablet b y oral route 3 times every day 0.5 MG - Active AMLODIPINE BESILATE (unknown strength) Not Available - Active Tirosint 13 mcg capsule take 1 capsule b y oral route every day 13 MCG - Active VITAMIN B-12 (unknown strength) Not Available - Active ASPIRIN (unknown strength) Not Available - Active atenolol 50 mg tablet take 1 tablet by oral route every day 50 MG - Active hydrochlorothiazide 12.5 mg capsule take 2 capsule by oral route every day 25 MG - Active lisinopril 20 mg tablet take 1 tablet by oral route every day 20 MG - Active omeprazole 20 mg capsule,delayed release take 1 capsule by oral route every day before a meal 20 MG - Active Procedures Procedure Date Eye Exam, New Patient No Charge Refraction Advance Directives Directive Yes / No Effective Date File Name No Information Encounters Encounter Description Practice Location Reason(s) For Visit Diagnoses Date Provider Providers Copied on Encounter [facility], [address] [place] [address] [address], [place], [place], [id number], [place] tel:[phone] [facility] Professional Blurry vision (chief complaint) Senile nuclear cataractTEAR FILM INSUFFIC NOS 5 Kristine Coats. [address] [facility], [address], [place], [place], [id number], [place]. tel:[phone] Referring Provider: Maria D Martínez MD, [address], [place], [address]. tel:[phone] Family History Family Member Type Diagnosis Age At Onset No Information Payers Payer name Insurance type Covered democrat ID Victor Hugo crocker(s) Jaskaran ELY [id number] Social History Type Description Quantity Date Captured Comments Alcohol Use Details Unknown Caffeine Use Details Unknown Tobacco Use Status No Information Smoking Status No Information Sex Female Chief Complaint And Reason For Visit From encounter dated '04/19/2014 09:30'. Blurry vision (chief complaint). Description: The 74 year old female presents for a complete exam. PT denies any pain or discomfort at this time. PT states v/a is stable. PT does not use any gtts at this time. Reason For Referral Reason For Referral No Information History Of Present Illness Encounter Date Complaint History Of Prese nt Illness Blurry vision The 74 year old female presents for a complete exam. PT denies any pain or discomfort at this time. PT states v/a is stable. PT does not use any gtts at this time. Functional Status Date Functional Assessmen t No Information Instructions Date Instruction Additional Infor mation - Cataracts account for the patient's complaints. No treatment currently recommended. The patient will monitor vision changes and contact us with any decrease in vision. Start artificial tears for dry eyes. Return in 1 year for complete exam or sooner with any problems. Related to See list of assessments above - Return in 1 year w bill Carmona M.D. for Complete Exam Related to See list of assessments above Assessments Type Assessment Date assessment Senile nuclear cataract 015 assessment TEAR FILM INSUFFIC NOS 15 Patient Care Teams Name Effective Dates (start - stop) Status Members No Information
--- NOTE | 2024-10-28 19:04 | ECG_ITS ---
Test Date: 2024-10-28 19:10:55 Measurements Intervals [place] Rate: 75 P: 46 RI: 193 QRS: -1 QRSD: 83 T: 101 QT: 371 QTc: 415 Interpretive Statements SINUS RHYTHM POSSIBLE ANTERIOR MYOCARDIAL INFARCTION , OF INDETERMINATE AGE [30 ms Q WAVE IN V3/V4, OR R < 0.2 mV IN V4] POSSIBLE INFERIOR MYOCARDIAL INFARCTION , OF INDETERMINATE AGE [30 ms Q WAVE IN II/aVF] MODERATE T-WAVE ABNORMALITY, CONSIDER LATERAL ISCHEMIA [-0.1+ mV T WAVE IN I/aVL/V5/V6] No previous ECG available for comparison Electronically Signed On 10-30-2024 15:35:33 CDT by Emory Christine M.D.
[2024-10-28 19:19] LABS: Hematocrit 37.4 % (37.0-47.0); Hemoglobin 12.8 g/dL (12.0-15.0); Immature Granulocyte Percent A 0.2 % (0-0.5); Lymphocytes Absolute Auto 1.74 K/mm3 (0.9-3.2); Mean Corpuscular HGB Conc 34.2 g/dl (32-36); Mean Corpuscular Hemoglobin 30.5 pg (26-34); Mean Corpuscular Volume 89.0 fl (80-100); Nucleated Red Blood Cells Absolute Auto 0.000 K/mm3 (0.0-0.012); Nucleated Red Blood Cells Perc 0.0 % (0.0-0.2); Platelet Count Result 180 k/mm3 (150-375); Red Blood Count 4.20 M/mm3 (4.2-5.4); White Blood Count 5.1 K/mm3 (4.5-10.0)
[2024-10-28 19:32] LABS: INR 1.1; Prothrombin Time 13.9 Seconds (11.1-14.7)
[2024-10-28 19:33] LABS: Partial Thromboplastin Time 44.0 Seconds (22.3-36.8)
[2024-10-28 19:41] LABS: Alanine Aminotransferase 20 U/L (6-35); Albumin Level 4.8 g/dL (3.5-5.1); Alkaline Phosphatase 46 U/L (38-126); Anion Gap 9 mmol/L (4-12); Aspartate Amino Transferase 43 U/L (14-36); Bilirubin,Total 1.5 mg/dL (0.2-1.3); Blood Urea Nitrogen 8 mg/dL (7-17); Calcium 9.8 mg/dL (8.4-10.2); Carbon Dioxide 24 mmol/L (22-30); Chloride 100 mmol/L (98-107); Estimated Glomerular Filt Rate 46; Glucose 110 mg/dL (65-110); Potassium 3.8 mmol/L (3.4-5.0); Sodium 133 mmol/L (137-145); Total Protein 8.2 g/dL (6.3-8.2)
[2024-10-28 19:52] LABS: Troponin I < 0.012 ng/mL (0.000-0.034)
[2024-10-29] VITALS (51 sets, daily range): BP systolic 103–186; BP diastolic 65–105; PULSE 59–92; RESP 9–21; TEMP 36.4–36.8; O2SAT 94–100; BMI 31.7
--- NOTE | 2024-10-29 | ECHO_ITS ---
Patient Info Name: Joanne Newman Age: 84 years : 1940 Gender: Female Ht: 65 in Wt: 145 lbs BSA: 1.75 m2 HR: 70 bpm BP: 151 / 91 mmHg Technical Quality: Good Exam Date: 10/29/2024 1:51 PM Patient Status: I Admit Date: 10/29/2024 Exam Type: CA echo dop color flow w con Complete two-dimensional, color flow and Doppler transthoracic echocardiogram is performed with contrast to opacify the left ventricle and to improve the deliniation of the left ventricle endocardial borders. Staff Referring Physician: Aurea Aguilar Price Checker: Colleen Dyson Attending Provider: Pat Boston DO Contrast/Agitated Saline Contrast/Ag. Saline: Definity Amount: 2.00 ml Administered By: Colleen Dyson Summary 1. There is normal biventricular size and systolic function. 2. There are no significant valvular abnormalities. Left Ventricle The left ventricle is normal in size and systolic function. There is concentric left ventricular remodeling. The left ventricular ejection fraction is visually estimated to be 55-60%. Right Ventricle The right ventricle is normal in size and systolic function. Left Atria The left atrium is normal size. Right Atria The right atrium is normal size. Atrial Septum The atrial septum is not well visualized. Aortic Valve The aortic valve is trileaflet and opens well. There is trace aortic regurgitation. Pulmonic Valve The pulmonic valve is not well visualized. There is mild pulmonic valve regurgitation. Mitral Valve The mitral valve is grossly normal. There is no mitral regurgitation. Tricuspid Valve The tricuspid valve is grossly normal. There is trace tricuspid regurgitation. Pericardium/Pleural Pericardium is normal in appearance with no evidence for significant pericardial effusion. Inferior Vena Cava Inferior vena cava is not well visualized. Aorta The aortic root at the level of the sinus of Valsalva measures 3.3 cm in diameter. Left Ventricular Outflow Tract Name Value Normal LVOT 2D LVOT Diameter 2.0 cm LVOT Doppler LVOT Peak Velocity 90 cm/s LVOT Peak Gradient 3 mmHg LVOT Mean Gradient 2 mmHg LVOT VTI 17 cm LVOT Stroke Volume 56 ml LVOT CO 3.9 l/min LVOT CI 2.2 l/min/m2 Pulmonic Valve Name Value Normal RVOT Doppler RVOT Peak Velocity 80 cm/s RVOT Peak Gradient 3 mmHg PV Doppler PV Peak Velocity 71 cm/s PV Peak Gradient 2 mmHg PV Regurgitation Doppler ND Peak End Diastolic Velocity 90 cm/s Mitral Valve Name Value Normal MV Diastolic Function MV E Peak Velocity 37 cm/s MV A Peak Velocity 67 cm/s MV E/A 0.6 MV Decel Time (PW) 464 ms MV Annular TDI MV E/e' (Septal) 15.1 MV E/e' (Lateral) 11.7 MV E/e' (Average) 13.4 Aortic Valve Name Value Normal AV Doppler AV Peak Velocity 135 cm/s AV Peak Gradient 7 mmHg AV Area (Cont Eq Johann) 2.2 cm2 AV DI (Johann) 0.67 AV Regurgitation 2D LVOT Area 3.2 cm2 Ventricles Name Value Normal LV Dimensions 2D/MM IVS Diastolic Thickness (2D) 1.1 cm 0.6-1.0 LVID Diastole (2D) 3.6 cm 3.8-5.2 LVIW Diastolic Thickness (2D) 1.4 cm 0.6-0.9 LVID Systole (2D) 2.6 cm 2.2-3.5 LVOT Diameter 2.0 cm LV Mass (2D Cubed) 151.33 g 67.00-162.00 LV Mass Index (2D Cubed) 87 g/m2 43-95 Relative Wall Thickness (2D) 0.77 <=0.42 LV Fractional Shortening/Ejection Fraction 2D/MM LV Fractional Shortening (2D) 28 % 27-45 LV EF (2D Teichholz) 54 % LV Diastolic Volume (4C MOD) 67 ml LV EF (4C MOD) 52 % LV Diastolic Volume (2C MOD) 59 ml LV EF (2C MOD) 51 % LV Diastolic Volume (BP MOD) 64 ml 46-106 LV Diastolic Volume Index (BP MOD) 37 ml/m2 29-61 LV Systolic Volume (BP MOD) 32 ml 14-42 LV Systolic Volume Index (BP MOD) 18 ml/m2 8-24 LV EF (BP MOD) 51 % 54-74 LV Diastolic Length (4C) 7.4 cm LV Systolic Length (4C) 7.0 cm LV Stroke Volume (4C MOD) 35 ml Atria Name Value Normal LA Dimensions LA Volume (4C A-L) 34 ml LA Volume (BP A-L) 40 ml RA Dimensions RA Systolic Major [place] Length (4C) 4.4 cm 2.2-2.8 RA Area (4C) 9.5 cm2 <=18.0 Report Signatures
--- NOTE | 2024-10-29 04:00 | ED_ITS ---
HPI - Neuro Symptoms/Deficit General Chief Complaint: Neuro Symptoms/Deficit Stated Complaint: neuro deficits Time Seen by Provider: 10/29/24 03:42 Source: patient and family Limitations: no limitations History of Present Illness HPI Narrative: Patient presents to the emergency department concern for neurological symptoms. Approximately 1-2 days ago she developed left-sided facial numbness as paresthesias in leg. She has a history of strokes without reported deficits states that she feels like she had another 1. Patient currently takes lisnopril and metoprolol for hypertension. She is on aspirin Plavix. Other anticoagulation. Does not have a history of diabetes mellitus. States she has some chronic based on changes at baseline due to her age but denies any acute changes. She and her family have noticed slightly slurred speech. Related Data Home Medications ?Medication ?Instructions ?Recorded ?Confirmed ?Last Taken ?Type lisinopril 20 mg tablet 20 mg PO DAILY 09/04/19 10/29/24 Unknown History sertraline 100 mg tablet 100 mg PO DAILY 09/04/19 10/29/24 Unknown History aspirin 325 mg tablet 650 mg PO DAILY PRN PAIN 07/25/22 10/29/24 Unknown History levothyroxine 150 mcg tablet 150 mcg PO DAILY 07/25/22 10/29/24 Unknown History pantoprazole 40 mg tablet,delayed 40 mg PO DAILY 07/25/22 10/29/24 Unknown History release spironolactone 25 mg tablet 25 mg PO DAILY 07/25/22 10/29/24 Unknown History Allergies Allergy/AdvReac Type Severity Reaction Status Date / Time Qnfouov-BUM-ChF Reductase Allergy Mild hives Verified 10/29/24 04:32 Inhibitor (Ivnbxvq-Fou-Vlv Reductase Inhibitor) Sulfa (Sulfonamide Allergy Unknown Unknown Verified 10/29/24 04:32 Antibiotics) [facility] Past Medical History Medical History (Updated 10/29/24 @ 13:16 by Charlotte Calhoun MD) Imbalance Left facial numbness Coronary artery disease With history of stent. Chronic kidney disease, stage 3 Chronic anemia Essential hypertension Hypothyroidism Paroxysmal atrial fibrillation Transient ischemic attack (~2009) Surgical History Surgical History History of coronary artery bypass graft History of heart artery stent History of bladder suspension procedure History of cholecystectomy History of appendectomy Family History Family History Mother Hypothyroid Heart attack Hypertension Sibling Hypothyroid Father Heart attack Hypertension Social History Social History Social History: The patient is and lives in independent living at [facility]. He is in the nursing due to his dementia. She denies alcohol, tobacco, and drug use. She designates her son, Cayden Newman, as her surrogate decision maker and she wishes to be a full code. Smoking status: Never smoker Alcohol intake: never Substance use: never Substance use type: does not use Do You Feel Safe in your Home?: Yes Lack of Transportation: No Lack of Food: Never True Current Housing: I Have Housing Concerned About Future Housing: No Difficulty Paying Gas/Electric Bills: No Difficulty Paying for Meds: No Currently Unemployed: No Education: Associate Degree Difficulty w/ Childcare or Family Care: No Gender identity (if verbalized by the patient): Female Spiritual care concerns: No Exam 2 Narrative: GENERAL: Well-appearing, well-nourished, and in no acute distress. HEAD: Normocephalic, atraumatic. Horizontal extra ocular movements intact EYES: Non injected, non icteric ENT: Nares clear, no rhinorrhea or epistaxis. Gross auditory acuity intact. NECK: Supple. No meningismus. CHEST: Speaking in full sentences. No respiratory distress. HEART: Regular rate and rhythm. . ABDOMEN: Soft, nondistended. Not peritoneal EXTREMITIES: Normal range of motion. No lower extremity edema. SKIN: Warm, dry, no rash. NEURO: No focal deficits. Alert and oriented. Answering questions appropriately except for the two that are explicitly asked as part of NIHSS (states age 85yo and month November), recognizes when she is wrong. Following commands. No aphasia but mildly dysarthric. Minor paralysis with slight flattening of the nasolabial fold on the left. No ataxia. Mild sensation loss on the left with it feeling less sharp/more dull. No extinction PSYCH: Normal mood and affect. Course Vital Signs Vital signs: Vital Signs Pulse Rate 67 10/28/24 21:34 Respiratory Rate 12 10/28/24 21:34 Blood Pressure 182/86 H 10/28/24 21:34 Pulse Oximetry 98 10/28/24 21:34 Temperature 97.9 F 07/24/25 14:00 Pulse Rate 69 10/29/24 14:00 Respiratory Rate 18 10/29/24 14:00 Blood Pressure 103/70 10/29/24 14:00 Pulse Oximetry 95 10/29/24 14:00 MDM - Neuro Symptoms/Deficit MDM Narrative Medical decision making narrative: This is a 84 year old female who presents to the emergency department with concern for possible stroke. The patient is protecting their airway which is patent. An IV is established by nursing staff blood work sent to the lab for evaluation. An EKG will be performed. NIHSS was evaluated per below. The patient was transported to CT scan but not as stroke activation given LKW >24 hours. In the emergency department she is afebrile vital signs notable for hypertension. NIHSS Level Of consciousness: 0 Month and age: 2 Follows commands: 0 Gaze palsy: 0 Visual garzon: 0 Facial palsy: 1 Left arm motor drift: 0 Right arm motor drift:0 Left leg motor drift:0 Right leg motor drift:0 Limb ataxia:0 Sensation: 1 Aphasia: 0 Dysarthria: 1 Extinction: 0 Total: 5 DIFFERENTIAL DIAGNOSES Considered Stroke (CVA / TIA) mimics including but not limited to: migraines, hypoglycemia, seizures/Fredo's paralysis, sepsis/severe infections in patients with prior strokes (e.g. recrudescence), syncope, brain masses, transient global amnesia, panic attack/hyperventilation, and conversion disorders. CT as below. Will proceed with CTA. Patient has comorbidities that complexity management. Namely, history of CVAs. Labs: Creatinine essentially stable. Mild hyponatremia. Mild LFT elevation (stable/chronic). Appears to have a sterile pyuria. Given suspect patient has developed a stroke, recommend patient be switched to / add clopidogrel. Should also consider patient's statin regimen. Shared decision making with patient and her family who concur with the need for admission for further work up and PT/OT evaluation. Patient currently not using any assist devices to walk. Will need to determine her needs, especially as they pertain to her symptoms and how they effect her ADLs as she currently is able to live somewhat independently. Patient will require admission with workup to possibly include echo, carotid Doppler/duplex and cardiac monitoring. Goal is to maintain normotension/permissive hypertension as well as euglycemia. Discussed patient with on-call hospitalist who requests neurology consult be placed given facial drooping. Patient also would benefit from risk factor optimization as she is not on clopidogrel, only aspirin. Will place order for MRI. Will be med surg tele. Lab Data Attestation: I reviewed the patient's lab results. Lab results narrative: CBC generally unremarkable except for mild abnormalities on the differential 10/28/24 19:13 10/28/24 19:13 Labs: Lab Results 10/28/24 10/29/24 10/29/24 Range/Units 19:13 04:42 07:45 WBC 5.1 (4.5-10.0) K/mm3 RBC 4.20 (4.2-5.4) M/mm3 Hgb 12.8 (12.0-15.0) g/dL Hct 37.4 (37.0-47.0) % MCV 89.0 (80-100) fl MCH 30.5 (26-34) pg MCHC 34.2 (32-36) g/dl RDW 15.0 H (11.5-14.5) % Plt Count 180 (150-375) k/mm3 MPV 10.7 H (7.4-10.4) fl Immature Gran % (Auto) 0.2 (0-0.5) % Neut % (Auto) 56.1 (45.5-73.1) % Lymph % (Auto) 34.1 (18.3-44.2) % Dawson % (Auto) 5.5 (2.6-8.5) % Eos % (Auto) 3.1 (0-4.4) % Baso % (Auto) 1.0 (0.2-1.2) % Lymph # (Auto) 1.74 (0.9-3.2) K/mm3 Dawson # (Auto) 0.3 (0.1-0.6) K/mm3 Eos # (Auto) 0.2 (0-0.3) K/mm3 Baso # (Auto) 0.1 (0.0-0.1) K/mm3 Abs Immat Gran (auto) 0.01 (0.00-0.031) K/mm3 Absolute Neuts (auto) 2.9 (1.3-6.7) K/mm3 Absolute Nucleated RBC 0.000 (0.0-0.012) K/mm3 Nucleated RBC % 0.0 (0.0-0.2) % PT 13.9 (11.1-14.7) Seconds INR 1.1 APTT 44.0 H (22.3-36.8) Seconds Sodium 133 L (137-145) mmol/L Potassium 3.8 (3.4-5.0) mmol/L Chloride 100 (98-107) mmol/L Carbon Dioxide 24 (22-30) mmol/L Anion Gap 9 (4-12) mmol/L BUN 8 D (7-17) mg/dL Creatinine 1.13 H (0.7-1.0) mg/dL Estim Creat Clear Calc Not Reportable Estimated GFR 46 L (59 - ) Glucose 110 (65-110) mg/dL POC Capillary Glucose 98 (65-105) mg/dl Calcium 9.8 (8.4-10.2) mg/dL Total Bilirubin 1.5 H (0.2-1.3) mg/dL AST 43 H (14-36) U/L ALT 20 (6-35) U/L Alkaline Phosphatase 46 (38-126) U/L Troponin I < 0.012 (0.000-0.034) ng/mL Total Protein 8.2 (6.3-8.2) g/dL Albumin 4.8 (3.5-5.1) g/dL Urine Color Yellow (Yellow) Urine Appearance Clear (Clear) Urine pH 6.5 (5.0-9.0) Ur Specific [place] 1.011 (1.001-1.035) Urine Protein Negative (Negative) mg/dL Urine Glucose (UA) Negative (Negative) mg/dL Urine Ketones Trace H (Negative) mg/dL Ur Blood (Man) Negative (Negative) Urine Nitrate Negative (Negative) Urine Bilirubin Negative (Negative) Urine Urobilinogen 1.0 (<2.0) mg/dL Leukocyte Esterase Rfl 1+ H (Negative) LILIBETH/UL Urine RBC 0-2 (0-2) /hpf Urine WBC 6-10 H (0-3) /hpf Ur Squamous Epith Cells None seen (Few) /hpf Urine Bacteria None seen /hpf Urine Casts 0-2 Imaging Data Radiologist's impression: CTA Head/Neck Stat Rad: Atherosclerosis of the supraclinoid right ICA results in 50% stenosis. Otherwise, no significant stensois, occlusion, aneurysm or dissection. CTA Neck Stat Rad: 40% stenosis of the proximal right ICA by NASCET criteria. Otherwise, no signfiicant stenosis, occlusion, aneurysm or dissection. Incidental findings: Bilateral airspace opacities and interseptal thickening concerning for pulmonary edema. Impressions Head CT 10/28/24 19:25 IMPRESSION: 1. Stable appearance of mild scattered white matter hypoattenuation consistent with chronic small vessel ischemic disease. No acute intracranial process. Chest X-Ray 10/28/24 19:30 IMPRESSION: No focal infiltrate or effusion. ECG Data EKG #1: Attestation: I personally reviewed and interpreted this ECG as follows: ECG completion date: 10/28/24 ECG completion time: 19:10 Interpretation: Sinus rhythm at a rate of 75 beats per minute. AK interval 193. QRS 83. QT/QTC 371/415. Poor R-wave progression across the precordial leads. There is T-wave flattening but no ez T-wave inversions and no obvious ST elevation. Discharge Plan Discharge Clinical Impression: Pyuria, sterile, CVA (cerebral vascular accident) Patient Disposition: Still a Patient Condition: Stable Time of Disposition: 06:09
--- OUTSIDE RECORDS SUMMARY | 2024-10-29 04:15 | XMS_ITS | Encounter Summary ---
Author Organization [facility] Address [address] [place] [address] Phone Care Team Providers Care Grain Unloader Name Role Phone Sarah Holt MD Unavailable Nelly Galindo MD Unavailable [phone] Maria D Martínez MD Primary Care Provider [phone] Bharat Moscoso MD Unavailable Moshe Pineda DO Unavailable [phone] David Sherman DO Unavailable [phone] Timothy Basurto MD Unavailable [phone] Claude Patrick MD Unavailable Aaron Bruno MD Unavailable Encounter Details Date Type Department Care Team (Late st Contact Info) Description 02/17/2021 Orders Only [facility] [address] [place] [address] Maria D Martínez MD [address] [place] [address] Social History Tobacco Use Types Packs/Day Years Used Date Smoking Tobacco: Never Smokeless Tobacco: Never Alcohol Use Standard Drinks/Week Comments No 0 (1 standard drink = 0.6 oz pur e alcohol) Comments No Sex and Gender Information Value Date Recorded Sex Assigned at Not on file Legal Sex Female 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 Gender Identity Not on file Sexual Orientation [...] on filedocumented in this encounter Care Teams Grain Unloader Relationship Specialty Start Date End Date Maria D Martínez MD PCP - General Internal Medicine 03/22/17 Sarah Holt MD Gastroenterology 10/21/16 Nelly Galindo MD Cardiovascular Disease 10/21/16 09/10/22 Bharat Moscoso MD [address] [place] [address] [place] [address] Consulting Physician Neurology 02/25/18 09/10/22 Moshe Pineda DO [address] [place] [address] [place] [address] Cardiovascular Disease 02/25/18 09/10/22 David Sherman DO [address] [place] [address] [place] [address] Consulting Physician Cardiology 04/24/18 09/10/22 Timothy Basurto MD [address] [place] [address] Cardiology 11/06/19 09/10/22 Claude Patrick MD [address] [place] [address] Consulting Physician Pulmonary Disease 11/06/19 09/10/22 Aaron Bruno MD [address] [facility] [address] [facility] 200 [place] [address] Consulting Physician Internal Medicine 07/30/22 documented as of this encounter
--- OUTSIDE RECORDS SUMMARY | 2024-10-29 04:15 | XMS_ITS | Clinical Summary ---
Author Organization 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 Continue [...] anticoagulation Assessment & Plan (05/03/2020 2:23 PM SHIP RIGGER APPRENTICE): Patient has acute pulmonary embolism was likely due to prolonged hospitalization and surgery. She is off the Eliquis and is completely asymptomatic. Assessment & Plan (02/06/2020 7:06 PM CDT): Continue with Eliquis until March. I advised patient and her hand cigar making supervisor that after March Eliquis can be stopped. [...] hospital admission was unremarkable (scanned in from [facility]). Symptomatic bradycardia during that visit, no a-fib-see plan elsewhere. Soft BP in office today at 100/62(65). No acute findings on exam, neuro intact, heart sounds regular without murmur. Lungs clear. No edema. Suspect dehydration VS symptomatic bradycardia VS rhinitis. Will stop spironolactone, continue lisinopril as rxd. Patient states good Im tired of running to the bathroom all the time. Keep follow with paramedic instructor in 1-2 weeks. Aim for 6 8oz [...] depression. No a-fib or PACs. ECHO at [facility] was unremarkable, EF 60-65%, no valvular issues, [...] on file Legal Sex Female 6:51 PM SHIP RIGGER APPRENTICE Gender Identity Not on file Sexual Orientation Not on file Obstetrics History Last Filed Vital Signs Vital Sign Reading Time Taken Comments Blood Pressure 144/70 02/21/2023 3:08 PM SHIP RIGGER APPRENTICE Pulse 52 02/21/2023 3:08 PM SHIP RIGGER APPRENTICE Temperature 36.1 C (96.9 F) 02/21/2023 3:08 PM SHIP RIGGER APPRENTICE Respiratory Rate 16 02/21/2023 3:08 PM SHIP RIGGER APPRENTICE Oxygen Saturation 97% 02/21/2023 3:08 PM SHIP RIGGER APPRENTICE Inhaled Oxygen Concentration - - Weight 81.2 kg (179 lb) 02/21/2023 3:08 PM SHIP RIGGER APPRENTICE Height 162.6 cm (5' 4) 02/21/2023 3:08 PM SHIP RIGGER APPRENTICE Body Mass Index 30.73 02/21/2023 3:08 PM SHIP RIGGER APPRENTICE Plan of Treatment Health Maintenance Due Date [...] 65+ Completed 016, 04/13/2014, 09/05/2006 Insurance MEDICARE [facility] MEDICARE MEDICARE MEDICARE MEDICARE Advance Directives For more information, please contact: [phone] Documents on File Type Date Recorded Patient Solder Making Laborer Expl anation ADVANCE DIRECTIVE 11/05/2021 POWER OF A TTORNEY-MEDICAL ADVANCE DIRECTIVE 11/06/2019 DNR ADVANCE DIRECTIVE 11/06/2019 POWER OF A TTORNEY-MEDICAL ADVANCE DIRECTIVE 11/06/2019 CODE STATU S DETERMINATION [facility] ADVANCE DIRECTIVE 11/06/2019 POLST/DNR ADVANCE DIRECTIVE 09/28/2019 POLST/DNR * Full Code (Latest Code Status on File) Date Activated Date Inactivated Comments 02/22/2018 7:44 PM 02/25/2018 7:37 PM Healthcare Agents on File Name Relationship Healthcare Agent Relationshi p Communication Cayden Harder Other Health Care Agent Care Teams Car Electronics Installer Relationship Specialty Start Date End Date Maria D Martínez MD PCP - General Internal Medicine 03/22/17 Sarah Holt MD Gastroenterology 10/21/16 Aaron Bruno MD [address] [facility] [address] [place] [address] Consulting Physician Internal Medicine 07/30/22
--- OUTSIDE RECORDS SUMMARY | 2024-10-29 04:15 | XMS_ITS | Encounter Summary ---
Author Organization [facility] Address [address] [place] [address] Phone Care Team Providers Care Liquid Floor And Wall Applier Name Role Phone Sarah Holt MD Unavailable [phone] Nelly Galindo MD Unavailable [phone] Maria D Martínez MD Primary Care Provider [phone] Bharat Moscoso MD Unavailable [phone] Moshe Pineda DO Unavailable [phone] David Sherman DO Unavailable Timothy Basurto MD Unavailable [phone] Claude Patrick MD Unavailable [phone] Aaron Bruno MD Unavailable Encounter Details Date Type Department Care Team (Late st Contact Info) Description 09/08/2019 Orders Only [facility] [address] [place] [address] Scanning, Provider Social History Tobacco Use Types Packs/Day Years Used Date Smoking Tobacco: Never Smokeless Tobacco: Never Alcohol Use Standard Drinks/Week Comments No 0 (1 standard drink = 0.6 oz pur e alcohol) Comments No Sex and Gender Information Value Date Recorded Sex Assigned at Not on file Legal Sex Female 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 Gender Identity Not on file Sexual Orientation [...] on filedocumented in this encounter Care Teams Liquid Floor And Wall Applier Relationship Specialty Start Date End Date Maria D Martínez MD PCP - General Internal Medicine 03/22/17 Sarah Holt MD Gastroenterology 10/21/16 Nelly Galindo MD Cardiovascular Disease 10/21/16 09/10/22 Bharat Moscoso MD [address] [place] [address] [place] [address] Consulting Physician Neurology 02/25/18 09/10/22 Moshe Pineda DO [address] [place] [address] [place] [address] Cardiovascular Disease 02/25/18 09/10/22 David Sherman DO [address] [place] [address] [place] [address] Consulting Physician Cardiology 04/24/18 09/10/22 Timothy Basurto MD [address] [facility] [place] [address] Cardiology 11/06/19 09/10/22 Claude Patrick MD [address] [facility] [place] [address] Consulting Physician Pulmonary Disease 11/06/19 09/10/22 Aaron Bruno MD [address] [facility] [address] [address] Consulting Physician Internal Medicine 07/30/22 documented as of this encounter
--- OUTSIDE RECORDS SUMMARY | 2024-10-29 04:15 | XMS_ITS | Encounter Summary ---
Author Organization [facility] Address [address] [place] [place] [address] Phone Care Team Providers Care Senior Informatica Etl Developer Name Role Phone Sarah Holt MD Unavailable [phone] Nelly Galindo MD Unavailable [phone] Maria D Martínez MD Primary Care Provider [phone] Bharat Moscoso MD Unavailable [phone] Moshe Pineda DO Unavailable David Sherman DO Unavailable [phone] Timothy Basurto MD Unavailable [phone] Claude Patrick MD Unavailable [phone] Aaron Bruno MD Unavailable Encounter Details Date Type Department Care Team (Late st Contact Info) Description 09/04/2019 Orders Only [facility] [address] [place] [address] Scanning, Provider Social History Tobacco Use Types Packs/Day Years Used Date Smoking Tobacco: Never Smokeless Tobacco: Never Alcohol Use Standard Drinks/Week Comments No 0 (1 standard drink = 0.6 oz pur e alcohol) Comments No Sex and Gender Information Value Date Recorded Sex Assigned at Not on file Legal Sex Female 6: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 Gender Identity Not on file Sexual Orientation [...] on filedocumented in this encounter Care Teams Senior Informatica Etl Developer Relationship Specialty Start Date End Date Maria D Martínez MD PCP - General Internal Medicine 03/22/17 Sarah Holt MD Gastroenterology 10/21/16 Nelly Galindo MD Cardiovascular Disease 10/21/16 09/10/22 Bharat Moscoso MD [address] [place] [address] [place] [address] Consulting Physician Neurology 02/25/18 09/10/22 Moshe Pineda DO [address] [place] [address] [place] [address] Cardiovascular Disease 02/25/18 09/10/22 David Sherman DO [address] [place] [address] [place] [address] Consulting Physician Cardiology 04/24/18 09/10/22 Timothy Basurto MD [address] [facility] [place] [address] Cardiology 11/06/19 09/10/22 Claude Patrick MD [address] [facility] [address] Consulting Physician Pulmonary Disease 11/06/19 09/10/22 Aaron Bruno MD [address] [facility] [address] [address] Consulting Physician Internal Medicine 07/30/22 documented as of this encounter
--- OUTSIDE RECORDS SUMMARY | 2024-10-29 04:15 | XMS_ITS | Encounter Summary ---
Author Organization [facility] Address [address] [place] [address] Phone Care Team Providers Care Guest Room Attendant Name Role Phone Sarah Holt MD Unavailable [phone] Nelly Galindo MD Unavailable [phone] Maria D Martínez MD Primary Care Provider [phone] Bharat Moscoso MD Unavailable Moshe Pineda DO Unavailable David Sherman DO Unavailable Timothy Basurto MD Unavailable [phone] Claude Patrick MD Unavailable Aaron Bruno MD Unavailable [phone] Encounter Details Date Type Department Care Team (Late st Contact Info) Description 10/21/2019 Orders Only [facility] [address] [place] [address] Scanning, Provider Social History Tobacco Use Types Packs/Day Years Used Date Smoking Tobacco: Never Smokeless Tobacco: Never Alcohol Use Standard Drinks/Week Comments No 0 (1 standard drink = 0.6 oz pur e alcohol) Comments No Sex and Gender Information Value Date Recorded Sex Assigned at Not on file Legal Sex Female 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 Gender Identity Not on file Sexual Orientation [...] on filedocumented in this encounter Care Teams Guest Room Attendant Relationship Specialty Start Date End Date Maria D Martínez MD PCP - General Internal Medicine 03/22/17 Sarah Holt MD Gastroenterology 10/21/16 Nelly Galindo MD Cardiovascular Disease 10/21/16 09/10/22 Bharat Moscoso MD [address] [place] [address] [place] [address] Consulting Physician Neurology 02/25/18 09/10/22 Moshe Pineda DO [address] [place] [address] [place] [address] Cardiovascular Disease 02/25/18 09/10/22 David Sherman DO [address] [place] [address] [place] [address] Consulting Physician Cardiology 04/24/18 09/10/22 Timothy Basurto MD [address] [facility] [place] [address] Cardiology 11/06/19 09/10/22 Claude Patrick MD [address] [facility] [place] [address] Consulting Physician Pulmonary Disease 11/06/19 09/10/22 Aaron Bruno MD [address] [facility] [address] [address] Consulting Physician Internal Medicine 07/30/22 documented as of this encounter
--- OUTSIDE RECORDS SUMMARY | 2024-10-29 04:15 | XMS_ITS | Referral Summary ---
Author Organization [facility] Address [address] [place] [address] Care Team Providers Care Education Diagnostician Name Role Phone Sarah Holt MD Unavailable Maria D Martínez MD Primary Care Provider [phone] Aaron Bruno MD Unavailable [phone] Allergies Active Allergy Reactions Criticality Noted Date [...] 1 tablet (175 mcg total) by mouth sugar boiler before breakfast One tablet by mouth daily, [...] 11/02/2019 Assessment & Plan (05/03/2020 2:24 PM LINUX DEVOPS ENGINEER): Heart failure is compensated at present. [...] anticoagulation Assessment & Plan (05/03/2020 2:23 PM LINUX DEVOPS ENGINEER): Patient has acute pulmonary embolism was likely due to prolonged hospitalization and surgery. She is off the Eliquis and is completely asymptomatic. Assessment & Plan (02/06/2020 7:06 PM CDT): Continue with Eliquis until March. 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 Symptomatic bradycardia during that visit, no a-fib-see plan elsewhere. Soft BP in office today at 100/62(65). No acute findings on exam, neuro intact, heart sounds regular without murmur. Lungs clear. No edema. Suspect dehydration VS symptomatic bradycardia VS rhinitis. Will stop spironolactone, continue lisinopril as rxd. Patient states good Im tired of running to the bathroom all the time. 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 Aim for 6 8oz [...] depression. No a-fib or PACs. ECHO at [facility] was unremarkable, EF 60-65%, no valvular issues, [...] on file Legal Sex Female 6:51 PM LINUX DEVOPS ENGINEER Gender Identity Not on file Sexual Orientation Not on file Last Filed Vital Signs Vital Sign Reading Time Taken Comments Blood Pressure 144/70 02/21/2023 3:08 PM LINUX DEVOPS ENGINEER Pulse 52 02/21/2023 3:08 PM LINUX DEVOPS ENGINEER Temperature 36.1 C (96.9 F) 02/21/2023 3:08 PM LINUX DEVOPS ENGINEER Respiratory Rate 16 02/21/2023 3:08 PM LINUX DEVOPS ENGINEER Oxygen Saturation 97% 02/21/2023 3:08 PM LINUX DEVOPS ENGINEER Inhaled Oxygen Concentration - - Weight 81.2 kg (179 lb) 02/21/2023 3:08 PM LINUX DEVOPS ENGINEER Height 162.6 cm (5' 4) 02/21/2023 3:08 PM LINUX DEVOPS ENGINEER Body Mass Index 30.73 02/21/2023 3:08 PM LINUX DEVOPS ENGINEER Plan of Treatment Not on file Insurance MEDICARE * Guarantor: Joanne Newman Account Type Relation to Patient Date of Phone Billing Address Personal/Family Self 1940 [address], [address] MEDICARE MEDICARE Advance Directives For more information, please contact: [phone] Documents on File Type Date Recorded 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 Expl anation ADVANCE DIRECTIVE 11/05/2021 POWER OF A TTORNEY-MEDICAL ADVANCE DIRECTIVE 11/06/2019 DNR ADVANCE DIRECTIVE 11/06/2019 POWER OF A TTORNEY-MEDICAL ADVANCE DIRECTIVE 11/06/2019 CODE STATU S DETERMINATION [facility] ADVANCE DIRECTIVE 11/06/2019 POLST/DNR ADVANCE DIRECTIVE 09/28/2019 POLST/DNR * Full Code (Latest Code Status on File) Date Activated Date Inactivated Comments 02/22/2018 7:44 PM 02/25/2018 7:37 PM Healthcare Agents on File Name Relationship Healthcare Agent Relationshi p Communication Cayden Trent Other Health Care Agent Care Teams Education Diagnostician Relationship Specialty Start Date End Date Maria D Martínez MD PCP - General Internal Medicine 03/22/17 Sarah Holt MD Gastroenterology 10/21/16 Aaron Bruno MD [address] [facility] [address] [place] [address] Consulting Physician Internal Medicine 07/30/22
--- OUTSIDE RECORDS SUMMARY | 2024-10-29 04:15 | XMS_ITS | Clinical Summary ---
Author Organization [facility] Address [address] [place] [address] Care Team Providers Care Revenue Manager Name Role Phone Unavailable Primary Care Provider Unavailabl e Source Comments [facility],non-owned Affiliates and Associated Physician Practices is amultiple site organization consisting of ambulatory clinics and hospital sitesin [place], [place], [place] and [place]. This disclosure is being madepursuant to the Care Everywhere program and may not contain all information available regarding this patient. 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
--- OUTSIDE RECORDS SUMMARY | 2024-10-29 04:15 | XMS_ITS | Continuity of Care Document ---
Author Organization [facility] Address [address] [place] [address] [address] [place] [address] Phone Care Team Providers Care Security Controls Assessor Name Role Phone Jorge L Carmona MD Unavailable Unavailable Allergies, Adverse Reactions, Alerts Substance Reaction Status Criticality Sulfa (Sulfonamide Antibiotics) Active No Information Medications Medication Instructions Dosage Effective Dates (start - stop) Status Comments omeprazole 20 mg capsule,delayed release take 1 capsule by oral route every day before a meal 20 MG - Active lisinopril 20 mg tablet take 1 tablet by oral route every day 20 MG - Active hydrochlorothiazide 12.5 mg capsule take 2 capsule by oral route every day 25 MG - Active atenolol 50 mg tablet take 1 tablet by oral route every day 50 MG - Active ASPIRIN (unknown strength) Not Available - Active VITAMIN B-12 (unknown strength) Not Available - Active Tirosint 13 mcg capsule take 1 capsule b y oral route every day 13 MCG - Active AMLODIPINE BESILATE (unknown strength) Not Available - Active ropinirole 0.5 mg tablet take 1 tablet b y oral route 3 times every day 0.5 MG - Active Procedures Procedure Date Eye Exam, New Patient No Charge Refraction Advance Directives Directive Yes / No Effective Date File Name No Information Encounters Encounter Description Practice Location Reason(s) For Visit Diagnoses Date Provider Providers Copied on Encounter [facility], [address] [place] [address] [address], [place], [place], [id number], [place] tel:[phone] [place] Professional Blurry vision (chief complaint) Senile nuclear cataractTEAR FILM INSUFFIC NOS 5 Kristine Coats. [address] [facility], [address], [place], [place], [id number], [place]. tel:[phone] Referring Provider: Maria D Martínez MD, [address] [employer], [place], [address]. tel:[phone] Family History Family Member Type Diagnosis Age At Onset No Information Payers Payer name Insurance type Covered constitution party ID Victor Hugo crocker(s) Jaskaran ELY [id number] Social History Type Description Quantity Date Captured [...]
[2024-10-29 04:58] LABS: Add Urine Microscopic? YES; Appearance Urine Clear (Clear); Glucose Urine UA Negative (Negative); Leukocyte Esterase Ur 1+ LEU/UL (Negative); Nitrate Urine Negative (Negative); Non Pathogenic Casts 0-2; Specific Grav Ur 1.011 (1.001-1.035)
--- NOTE | 2024-10-29 12:54 | P.HP_ITS ---
H&P: HPI History of Present Illness Date/Time: 10/29/24 12:54 Chief Complaint: left sided numbness Narrative: Patient is an 84-year-old female past medical history of chronic kidney disease stage 3, coronary artery disease status post stents, chronic anemia, hypertension, hypothyroidism proximal atrial fibrillation and TIA who presented to the hospital last night with numbness experienced intermittently in the left cheek and hand. At the time of the interview, the patient did not report current numbness. The patient did not recall the specific reason for initially coming to the hospital. The numbness had reportedly been present for the last day or so. The patient did not report chest pain, weakness, or burning during urination. The patient was able to identify that they were in the hospital but was unsure of the current year. Emergency room evaluation notable for blood pressure 182/86, labs notable for sodium 133, creatinine 1.3, GFR 46, CT head unremarkable chest x-ray CTA head and neck are unremarkable. EKG show t wave invesion in V1 to V3. Patient still having left face numbness under time on this encounter. Review of Systems Review of Systems: All other systems were reviewed and negative except as noted in the history above. [facility] Past Medical History Medical History Coronary artery disease With history of stent. Chronic kidney disease, stage 3 Chronic anemia Essential hypertension Hypothyroidism Paroxysmal atrial fibrillation Transient ischemic attack (~2009) Surgical History Surgical History History of coronary artery bypass graft History of heart artery stent History of bladder suspension procedure History of cholecystectomy History of appendectomy Family History Family History Mother Hypothyroid Heart attack Hypertension Sibling Hypothyroid Father Heart attack Hypertension Social History Social History Social History: The patient is and lives in independent living at [facility]. He is in the nursing due to his dementia. She denies alcohol, tobacco, and drug use. She designates her son, Cayden Newman, as her surrogate decision maker and she wishes to be a full code. Smoking status: Never smoker Alcohol intake: never Substance use: never Substance use type: does not use Lack of Transportation: No Lack of Food: Never True Current Housing: I Have Housing Concerned About Future Housing: No Difficulty Paying Gas/Electric Bills: No Difficulty Paying for Meds: No Currently Unemployed: No Education: Decline to Answer Difficulty w/ Childcare or Family Care: No Gender identity (if verbalized by the patient): Female Spiritual care concerns: No Meds Home Medications and Allergies Home Medications ?Medication ?Instructions ?Recorded ?Confirmed ?Type lisinopril 20 mg tablet 20 mg PO DAILY 09/04/19 07/25/22 History sertraline 100 mg tablet 100 mg PO DAILY 09/04/19 07/25/22 History aspirin 325 mg tablet 650 mg PO DAILY PRN PAIN 07/25/22 07/25/22 History dimenhydrinate 50 mg tablet 50 mg PO DAILY PRN Dizziness 07/25/22 07/25/22 History (Dramamine) levothyroxine 150 mcg tablet See Rx Instructions .Route .COMPLEX 07/25/22 07/25/22 History levothyroxine 150 mcg tablet See Rx Instructions .Route .COMPLEX 07/25/22 07/25/22 History pantoprazole 40 mg tablet,delayed 40 mg PO DAILY 07/25/22 07/25/22 History release spironolactone 25 mg tablet 25 mg PO DAILY 07/25/22 07/25/22 History amlodipine 5 mg tablet (Norvasc) 5 mg PO QAM #30 tabs 07/30/22 Rx amoxicillin 875 mg-potassium 1 tablet PO Q12H #8 tabs 07/30/22 Rx clavulanate 125 mg tablet meclizine 25 mg tablet 25 mg PO BID PRN Dizziness #30 tabs 07/30/22 Rx Allergies Allergy/AdvReac Type Severity Reaction Status Date / Time Yfhtqet-[id number]-WgY Reductase Allergy Mild hives Verified 10/29/24 04:32 Inhibitor (Jzjusdt-Daw-Pzn Reductase Inhibitor) Sulfa (Sulfonamide Allergy Unknown Unknown Verified 10/29/24 04:32 Antibiotics) Vital Signs Vital Signs - 24 hr 10/28/24 21:34 10/28/24 21:34 10/28/24 21:53 Temperature Pulse Rate 67 69 68 Respiratory Rate 12 17 Blood Pressure 182/86 H 174/97 H Pulse Oximetry 98 99 10/28/24 22:15 10/28/24 22:16 10/28/24 22:30 Temperature Pulse Rate 67 64 65 Respiratory Rate 18 14 12 Blood Pressure 148/92 H Pulse Oximetry 95 95 97 10/28/24 22:31 10/28/24 22:45 10/28/24 22:46 Temperature Pulse Rate 62 57 L 60 Respiratory Rate 13 13 9 L Blood Pressure 149/74 H 159/78 H Pulse Oximetry 99 98 98 10/28/24 22:47 10/28/24 23:00 10/28/24 23:02 Temperature Pulse Rate 62 64 69 Respiratory Rate 14 11 L 15 Blood Pressure 159/78 H 165/66 H Pulse Oximetry 94 97 10/28/24 23:15 10/28/24 23:16 10/28/24 23:30 Temperature Pulse Rate 65 67 68 Respiratory Rate 17 13 17 Blood Pressure 169/88 H Pulse Oximetry 97 99 10/28/24 23:31 10/28/24 23:45 10/28/24 23:46 Temperature Pulse Rate 68 66 68 Respiratory Rate 15 13 7 L Blood Pressure 147/100 H 157/76 H Pulse Oximetry 10/29/24 00:00 10/29/24 00:01 10/29/24 00:15 Temperature Pulse Rate 69 68 63 Respiratory Rate 20 14 10 L Blood Pressure 161/85 H Pulse Oximetry 99 97 97 10/29/24 00:16 10/29/24 00:23 10/29/24 00:30 Temperature Pulse Rate 64 64 64 Respiratory Rate 12 18 13 Blood Pressure 143/75 H 143/75 H Pulse Oximetry 94 97 97 10/29/24 00:31 10/29/24 00:45 10/29/24 00:46 Temperature Pulse Rate 66 64 63 Respiratory Rate 11 L 9 L 12 Blood Pressure 162/91 H 171/88 H Pulse Oximetry 99 98 98 10/29/24 01:00 10/29/24 01:00 10/29/24 01:01 Temperature Pulse Rate 65 64 Respiratory Rate 18 10 L Blood Pressure 153/73 H Pulse Oximetry 97 99 98 10/29/24 01:15 10/29/24 01:16 10/29/24 01:30 Temperature Pulse Rate 62 66 63 Respiratory Rate 12 11 L 12 Blood Pressure 127/68 Pulse Oximetry 97 95 98 10/29/24 01:31 10/29/24 01:45 10/29/24 01:47 Temperature Pulse Rate 64 70 61 Respiratory Rate 12 18 12 Blood Pressure 171/93 H 174/97 H Pulse Oximetry 96 100 99 10/29/24 01:47 10/29/24 02:00 10/29/24 02:01 Temperature Pulse Rate 63 65 65 Respiratory Rate 11 L 13 14 Blood Pressure 174/97 H 144/75 H Pulse Oximetry 97 96 98 10/29/24 02:15 10/29/24 02:16 10/29/24 02:30 Temperature Pulse Rate 61 62 61 Respiratory Rate 12 11 L 15 Blood Pressure 165/73 H Pulse Oximetry 98 98 97 10/29/24 02:32 10/29/24 02:45 10/29/24 02:46 Temperature Pulse Rate 68 63 64 Respiratory Rate 17 14 15 Blood Pressure 151/72 H 162/66 H Pulse Oximetry 98 97 97 10/29/24 02:49 10/29/24 03:00 10/29/24 03:01 Temperature Pulse Rate 63 59 L 61 Respiratory Rate 17 12 10 L Blood Pressure 162/66 H 144/91 H Pulse Oximetry 99 97 97 10/29/24 03:15 10/29/24 03:16 10/29/24 03:30 Temperature Pulse Rate 64 59 L 60 Respiratory Rate 15 9 L 9 L Blood Pressure 174/92 H Pulse Oximetry 99 99 98 10/29/24 03:31 10/29/24 03:45 10/29/24 03:46 Temperature Pulse Rate 64 61 62 Respiratory Rate 11 L 13 14 Blood Pressure 147/73 H 162/75 H Pulse Oximetry 97 10/29/24 04:00 10/29/24 04:01 10/29/24 04:02 Temperature 98.3 F Pulse Rate 59 L 60 62 Respiratory Rate 10 L 15 13 Blood Pressure 176/89 H 176/89 H Pulse Oximetry 99 10/29/24 04:15 10/29/24 04:16 10/29/24 04:17 Temperature Pulse Rate 71 65 68 Respiratory Rate 21 H 17 17 Blood Pressure 186/77 H Pulse Oximetry 98 10/29/24 07:10 10/29/24 07:59 10/29/24 08:02 Temperature 97.5 F L Pulse Rate 63 66 68 Respiratory Rate 16 14 14 Blood Pressure 177/100 H 154/89 H 154/89 H Pulse Oximetry 97 98 100 10/29/24 09:38 10/29/24 11:00 10/29/24 11:27 Temperature Pulse Rate 92 77 74 Respiratory Rate 13 16 14 Blood Pressure 136/105 H 160/86 H 160/86 H Pulse Oximetry 100 99 98 10/29/24 12:33 Temperature 97.5 F L Pulse Rate 81 Respiratory Rate 20 Blood Pressure 151/91 H Pulse Oximetry 100 Exam Narrative: General: alert and comfortable Eyes: EOMI, PERRLA ENNT External ears normal, Neck is supple, no masses, Respiratory systems: Clear to auscultation Cardiovascular S1, S2, normal rhythm, no murmur, rub, or gallop; no thrill or palpable murmurs on palpation. Gastrointestinal: soft, non-tender, and non-distended abdomen with no masses; BS present Skin: no rash, lesions, ulcerations, subcutaneous nodules or induration Musculoskeletal: no abnormality and no tenderness, normal ROM Neurologic: Alert and oriented x2, decreased sensation on left face Mental Status Exam: normal affect H&P: Results Labs Labs: Short CBC 10/28/24 Range/Units 19:13 WBC 5.1 (4.5-10.0) K/mm3 Hgb 12.8 (12.0-15.0) g/dL Hct 37.4 (37.0-47.0) % Plt Count 180 (150-375) k/mm3 BMP 10/28/24 19:13 Sodium 133 L Potassium 3.8 Chloride 100 Carbon Dioxide 24 BUN 8 D Creatinine 1.13 H Glucose 110 Calcium 9.8 Cardiac Enzymes 10/28/24 Range/Units 19:13 Troponin I < 0.012 (0.000-0.034) ng/mL Liver Function 10/28/24 Range/Units 19:13 Total Bilirubin 1.5 H (0.2-1.3) mg/dL AST 43 H (14-36) U/L ALT 20 (6-35) U/L Alkaline Phosphatase 46 (38-126) U/L Albumin 4.8 (3.5-5.1) g/dL Urine 10/29/24 Range/Units 04:42 Urine Color Yellow (Yellow) Urine Appearance Clear (Clear) Urine pH 6.5 (5.0-9.0) Ur Specific Cameron 1.011 (1.001-1.035) Urine Protein Negative (Negative) mg/dL Urine Glucose (UA) Negative (Negative) mg/dL Assessment and Plan Assessment and plan (1) CVA (cerebral vascular accident): Code(s): I63.9 - Cerebral infarction, unspecified Status: Acute Plan left facial numbness r/o CVA Patient noted symptom has been present for more than 1 day prior to presenation Still having numbness and decreased sensation on exam CT head, CTA head and neck adn CXR unremarkable A1c, Lipid panel Neurology, ST/OT/PT consulted continue aspirin and Ezetimibe, patient allergic to statin CKD stage III stable monitor CAD s/p stent Continue home meds HTN Allow permissive hypertensioni until tomorrow Hypothyroidism TSH ordered continue home levothyroxine pAfib continue meds once reconciled DVT prophylaxis on Sq Lovenox Full code SDN: Angelito Hutton Hospitalist [facility] Advance Care Plan I have confirmed that the patient's Advanced Care Plan is present, code status is documented, or surrogate decision maker is listed in patient medical record.: Yes Medication Reconciliation I have utilized all available resources to obtain, update and review the patients current medications (includes all prescriptions, OTC, herbals, cannabis, and nutritional supplements).: Yes
--- NOTE | 2024-10-29 13:10 | P.CONNEU_ITS ---
Assessment and Plan Assessment and plan (1) Left facial numbness: Code(s): R20.0 - Anesthesia of skin Status: Acute (2) Imbalance: Code(s): R26.89 - Other abnormalities of gait and mobility Status: Acute (3) Multi-vessel coronary artery stenosis: Code(s): I25.10 - Atherosclerotic heart disease of upper [place] coronary artery without angina pectoris Status: Acute (4) S/P CABG (coronary artery bypass graft): Code(s): Z95.1 - Presence of aortocoronary bypass graft Status: Acute (5) Dizziness: Code(s): R42 - Dizziness and giddiness Status: Acute Plan The symptoms her fairly nonspecific since he states that she has numbness sometimes the left side of the face and other times on the right side of the face. She also has sense of imbalance however it has been noted in the past also. I will suggest an MRI of the brain in view of the sense of imbalance and ataxia and a changing symptoms in the face. I did not find any focal deficit. CT angiogram shows mild to moderate disease with 50% narrowing the right internal carotid artery and 23% the left side. We should also check her lipid profile and serum B12 folic acid level and vitamin-D level. I shall be glad to follow up the results of these investigations. Consult date: 10/29/24 HPI: Joanne Newman is a 84 year old female who presented to the complaints are numbness in the left side of the face. Upon asking she states that sometimes she has numbness in the right side of face and but today she has numbness in the left side of the face. She denies any difficulty speech or swallowing or any weakness in upper lower limbs. She states that she has had a stroke type symptoms after she had a coronary artery bypass grafting some time ago. She lives by herself and her . Her son helps her. She also has a sense of imbalance. I noted that she has had several CT scan over the last 2 3 years on account of dizziness. she had a CT angiogram head and neck which shows a 50% narrowing of the right internal carotid artery and 23% of the left internal carotid artery. No history of major head trauma or any falls. She denies any other specific symptoms From neurologic point of view. Review of Systems 2 Review of Systems: The patient complains of dizziness however she has been able to go to the bathroom independently. She does not use a cane or walker. She denies any significant pain in the legs or tingling or numbness. She does have some pain in the lower back occasionally. All systems reviewed & are unremarkable except as noted in HPI and below PMFSH Past Medical History Medical History (Updated 10/29/24 @ 13:16 by Charlotte Calhoun MD) Imbalance Left facial numbness Coronary artery disease With history of stent. Chronic kidney disease, stage 3 Chronic anemia Essential hypertension Hypothyroidism Paroxysmal atrial fibrillation Transient ischemic attack (~2009) Surgical History Surgical History History of coronary artery bypass graft History of heart artery stent History of bladder suspension procedure History of cholecystectomy History of appendectomy Family History Family History Mother Hypothyroid Heart attack Hypertension Sibling Hypothyroid Father Heart attack Hypertension Social History Social History Social History: The patient is and lives in independent living at [facility]. He is in the nursing due to his dementia. She denies alcohol, tobacco, and drug use. She designates her son, Cayden Newman, as her surrogate decision maker and she wishes to be a full code. Smoking status: Never smoker Alcohol intake: never Substance use: never Substance use type: does not use Lack of Transportation: No Lack of Food: Never True Current Housing: I Have Housing Concerned About Future Housing: No Difficulty Paying Gas/Electric Bills: No Difficulty Paying for Meds: No Currently Unemployed: No Education: Decline to Answer Difficulty w/ Childcare or Family Care: No Gender identity (if verbalized by the patient): Female Spiritual care concerns: No Meds Home Medications and Allergies Home Medications ?Medication ?Instructions ?Recorded ?Confirmed ?Type lisinopril 20 mg tablet 20 mg PO DAILY 09/04/19 07/25/22 History sertraline 100 mg tablet 100 mg PO DAILY 09/04/19 07/25/22 History aspirin 325 mg tablet 650 mg PO DAILY PRN PAIN 07/25/22 07/25/22 History dimenhydrinate 50 mg tablet 50 mg PO DAILY PRN Dizziness 07/25/22 07/25/22 History (Dramamine) levothyroxine 150 mcg tablet See Rx Instructions .Route .COMPLEX 07/25/22 07/25/22 History levothyroxine 150 mcg tablet See Rx Instructions .Route .COMPLEX 07/25/22 07/25/22 History pantoprazole 40 mg tablet,delayed 40 mg PO DAILY 07/25/22 07/25/22 History release spironolactone 25 mg tablet 25 mg PO DAILY 07/25/22 07/25/22 History amlodipine 5 mg tablet (Norvasc) 5 mg PO QAM #30 tabs 07/30/22 Rx amoxicillin 875 mg-potassium 1 tablet PO Q12H #8 tabs 07/30/22 Rx clavulanate 125 mg tablet meclizine 25 mg tablet 25 mg PO BID PRN Dizziness #30 tabs 07/30/22 Rx Allergies Allergy/AdvReac Type Severity Reaction Status Date / Time [id number] Reductase Allergy Mild hives Verified 10/29/24 04:32 Inhibitor (Ibvqmzg-Akm-Axr Reductase Inhibitor) Sulfa (Sulfonamide Allergy Unknown Unknown Verified 10/29/24 04:32 Antibiotics) Vital Signs Vital Signs - 24 hr 10/28/24 21:34 10/28/24 21:34 10/28/24 21:53 Temperature Pulse Rate 67 69 68 Respiratory Rate 12 17 Blood Pressure 182/86 H 174/97 H Pulse Oximetry 98 99 10/28/24 22:15 10/28/24 22:16 10/28/24 22:30 Temperature Pulse Rate 67 64 65 Respiratory Rate 18 14 12 Blood Pressure 148/92 H Pulse Oximetry 95 95 97 10/28/24 22:31 10/28/24 22:45 10/28/24 22:46 Temperature Pulse Rate 62 57 L 60 Respiratory Rate 13 13 9 L Blood Pressure 149/74 H 159/78 H Pulse Oximetry 99 98 98 10/28/24 22:47 10/28/24 23:00 10/28/24 23:02 Temperature Pulse Rate 62 64 69 Respiratory Rate 14 11 L 15 Blood Pressure 159/78 H 165/66 H Pulse Oximetry 94 97 10/28/24 23:15 10/28/24 23:16 10/28/24 23:30 Temperature Pulse Rate 65 67 68 Respiratory Rate 17 13 17 Blood Pressure 169/88 H Pulse Oximetry 97 99 10/28/24 23:31 10/28/24 23:45 10/28/24 23:46 Temperature Pulse Rate 68 66 68 Respiratory Rate 15 13 7 L Blood Pressure 147/100 H 157/76 H Pulse Oximetry 10/29/24 00:00 10/29/24 00:01 10/29/24 00:15 Temperature Pulse Rate 69 68 63 Respiratory Rate 20 14 10 L Blood Pressure 161/85 H Pulse Oximetry 99 97 97 10/29/24 00:16 10/29/24 00:23 10/29/24 00:30 Temperature Pulse Rate 64 64 64 Respiratory Rate 12 18 13 Blood Pressure 143/75 H 143/75 H Pulse Oximetry 94 97 97 10/29/24 00:31 10/29/24 00:45 10/29/24 00:46 Temperature Pulse Rate 66 64 63 Respiratory Rate 11 L 9 L 12 Blood Pressure 162/91 H 171/88 H Pulse Oximetry 99 98 98 10/29/24 01:00 10/29/24 01:00 10/29/24 01:01 Temperature Pulse Rate 65 64 Respiratory Rate 18 10 L Blood Pressure 153/73 H Pulse Oximetry 97 99 98 10/29/24 01:15 10/29/24 01:16 10/29/24 01:30 Temperature Pulse Rate 62 66 63 Respiratory Rate 12 11 L 12 Blood Pressure 127/68 Pulse Oximetry 97 95 98 10/29/24 01:31 10/29/24 01:45 10/29/24 01:47 Temperature Pulse Rate 64 70 61 Respiratory Rate 12 18 12 Blood Pressure 171/93 H 174/97 H Pulse Oximetry 96 100 99 10/29/24 01:47 10/29/24 02:00 10/29/24 02:01 Temperature Pulse Rate 63 65 65 Respiratory Rate 11 L 13 14 Blood Pressure 174/97 H 144/75 H Pulse Oximetry 97 96 98 10/29/24 02:15 10/29/24 02:16 10/29/24 02:30 Temperature Pulse Rate 61 62 61 Respiratory Rate 12 11 L 15 Blood Pressure 165/73 H Pulse Oximetry 98 98 97 10/29/24 02:32 10/29/24 02:45 10/29/24 02:46 Temperature Pulse Rate 68 63 64 Respiratory Rate 17 14 15 Blood Pressure 151/72 H 162/66 H Pulse Oximetry 98 97 97 10/29/24 02:49 10/29/24 03:00 10/29/24 03:01 Temperature Pulse Rate 63 59 L 61 Respiratory Rate 17 12 10 L Blood Pressure 162/66 H 144/91 H Pulse Oximetry 99 97 97 10/29/24 03:15 10/29/24 03:16 10/29/24 03:30 Temperature Pulse Rate 64 59 L 60 Respiratory Rate 15 9 L 9 L Blood Pressure 174/92 H Pulse Oximetry 99 99 98 10/29/24 03:31 10/29/24 03:45 10/29/24 03:46 Temperature Pulse Rate 64 61 62 Respiratory Rate 11 L 13 14 Blood Pressure 147/73 H 162/75 H Pulse Oximetry 97 10/29/24 04:00 10/29/24 04:01 10/29/24 04:02 Temperature 98.3 F Pulse Rate 59 L 60 62 Respiratory Rate 10 L 15 13 Blood Pressure 176/89 H 176/89 H Pulse Oximetry 99 10/29/24 04:15 10/29/24 04:16 10/29/24 04:17 Temperature Pulse Rate 71 65 68 Respiratory Rate 21 H 17 17 Blood Pressure 186/77 H Pulse Oximetry 98 10/29/24 07:10 10/29/24 07:59 10/29/24 08:02 Temperature 97.5 F L Pulse Rate 63 66 68 Respiratory Rate 16 14 14 Blood Pressure 177/100 H 154/89 H 154/89 H Pulse Oximetry 97 98 100 10/29/24 09:38 10/29/24 11:00 10/29/24 11:27 Temperature Pulse Rate 92 77 74 Respiratory Rate 13 16 14 Blood Pressure 136/105 H 160/86 H 160/86 H Pulse Oximetry 100 99 98 10/29/24 12:33 Temperature 97.5 F L Pulse Rate 81 Respiratory Rate 20 Blood Pressure 151/91 H Pulse Oximetry 100 Exam 2 Const: General: cooperative, well developed and alert O rientation/consciousness: oriented to person, oriented to place and oriented to time HENMT: Head: atraumatic Mouth: Yes oropharynx normal Eyes: Alignment and Position: position normal Pupils: Equal, round and reactive pupils present EOM: EOMs intact bilaterally Neck: Neck: supple Resp: Effort & Inspection: normal respiratory effort Skin: General skin exam: normal color Neuro: General: oriented to person, oriented to place, oriented to time, patient oriented x3 and Unable to assess gait Cranial nerves: Yes CN's II-XII intact bilaterally, Yes facial sensation intact/muscles of mastication intact, Yes Equal, round and reactive pupils present, Yes Bilaterally intact EOM present, Yes Nystagmus not present, Yes facial symmetry, Yes Midline tongue present, Yes Symmetric palate elevation present and Yes Ability to bilaterally elevate shoulders present Cognition (Neuro): normal cognition Speech: n ormal speech Motor exam (neuro): 5/5 motor strength present throughout, Motor fasciculations not present, Normal motor muscle tone present throughout and Motor abnormalities not present Sensory Exam: normal sensation C oordination: [id number] test normal and Normal rapid alternating movements of the distal upper extremity present (Neuro) Psych: Mental Status: mental status grossly normal Affect: normal affect Results Labs 10/28/24 19:13 10/28/24 19:13 Labs: Short CBC 10/28/24 Range/Units 19:13 WBC 5.1 (4.5-10.0) K/mm3 Hgb 12.8 (12.0-15.0) g/dL Hct 37.4 (37.0-47.0) % Plt Count 180 (150-375) k/mm3 BMP 10/28/24 19:13 Sodium 133 L Potassium 3.8 Chloride 100 Carbon Dioxide 24 BUN 8 D Creatinine 1.13 H Glucose 110 Calcium 9.8 Cardiac Enzymes 10/28/24 Range/Units 19:13 Troponin I < 0.012 (0.000-0.034) ng/mL Liver Function 10/28/24 Range/Units 19:13 Total Bilirubin 1.5 H (0.2-1.3) mg/dL AST 43 H (14-36) U/L ALT 20 (6-35) U/L Alkaline Phosphatase 46 (38-126) U/L Albumin 4.8 (3.5-5.1) g/dL Urine 10/29/24 Range/Units 04:42 Urine Color Yellow (Yellow) Urine Appearance Clear (Clear) Urine pH 6.5 (5.0-9.0) Ur Specific [place] 1.011 (1.001-1.035) Urine Protein Negative (Negative) mg/dL Urine Glucose (UA) Negative (Negative) mg/dL EXAMINATION: CTA brain carotid DATE: 10/29/2024 5:55 CDT INDICATION: Left-sided facial numbness. TECHNIQUE: Computed tomographic angiography (CTA) of the head was performed without and with 100 mL Omnipaque-350 intravenous contrast. CTA of the neck was performed with intravenous contrast. The dose-length product was 1046.16 mGy-cm. Maximum intensity projection and volume rendered 3D-reconstructions were created by the technologist on a separate workstation. Automated exposure control and iterative reconstruction technique were employed. COMPARISON: CT brain dated 10/28/2024 FINDINGS: HEAD CTA: There is mild stenosis of the cavernous segment of the right internal carotid artery. The right anterior cerebral artery supplied via the anterior communicating artery. No aneurysm. There is significant atherosclerosis cavernous segments of both carotid arteries. The vertebral arteries are codominant. No occlusion. NECK CTA: There is atherosclerosis of the aortic arch. There is atherosclerosis of the proximal internal carotid artery and common carotid bulbs. No evidence for dissection. No significant stenosis at the origin of the carotid or vertebral arteries. No significant paraspinal soft tissue abnormality. There are groundglass opacities throughout the upper lobes with mosaic pattern. There is 50% stenosis of the proximal right internal carotid artery relative to normal distal artery lumen diameter (NASCET criteria). There is 23% stenosis of the proximal left internal carotid artery relative to normal distal artery lumen diameter. IMPRESSION: 1. 50% stenosis of the proximal right internal carotid artery relative to normal distal artery lumen diameter (NASCET criteria). 2. 23% stenosis of the proximal left internal carotid artery relative to normal distal artery lumen diameter. 3: Mild-moderate stenosis of the right internal carotid artery at the cavernous segment secondary to atherosclerosis. Considerations include hypersensitivity pneumonitis, respiratory bronchiolitis, smoking-related bronchiolar disease. Reviewed, dictated and finalized at location A.
--- NOTE | 2024-10-29 14:31 | ADMGEN ---
This patient, Joanne Newman, was admitted to [facility] Surg Room 329-01. Patient/family oriented to hospital policies and general routines including ID bracelet, bed and alarms, visiting hours, pain management, procedures, bathroom and other care routines, personal items, smoking policy, room service/diet, and visiting hours. Information on how to activate the Rapid Response Team has been discussed. Patient/Family are encouraged to report perceived risks to care and to ask questions if they do not understand what they are told or what they should do.
[2024-10-29] MEDS: PERFLUTREN LIPID MICROSPHERES 1.5 ML VIAL DILUTED TO 10 ML TOTAL VOLUME IV PUSH (15:55)
--- NOTE | 2024-10-29 15:55 | IVDEFINITY ---
Prior to administration of IV Definity the patient was educated on the risks and benefits of the imaging enhancing agent including potential adverse side effects. The patient verbalized understanding. Allergies were verified. No exclusion criteria were identified and at least one of the following inclusion criteria were met: 1) physician request, 2) patient technically difficult to image (per the [place] [employer]chocardi[employer] guidelines of two or more segments not discernable within the apical view), or 3) questionable left ventricular function. ?
[2024-10-30] VITALS (10 sets, daily range): BP systolic 135–148; BP diastolic 64–92; PULSE 49–82; RESP 16–18; TEMP 36.5–36.8; O2SAT 95–100
[2024-10-30 05:41] LABS: Hematocrit 38.9 % (37.0-47.0); Hemoglobin 12.9 g/dL (12.0-15.0); Immature Granulocyte Percent A 0.4 % (0-0.5); Lymphocytes Absolute Auto 1.84 K/mm3 (0.9-3.2); Mean Corpuscular HGB Conc 33.2 g/dl (32-36); Mean Corpuscular Hemoglobin 30.4 pg (26-34); Mean Corpuscular Volume 91.5 fl (80-100); Nucleated Red Blood Cells Absolute Auto 0.000 K/mm3 (0.0-0.012); Nucleated Red Blood Cells Perc 0.0 % (0.0-0.2); Platelet Count Result 162 k/mm3 (150-375); Red Blood Count 4.25 M/mm3 (4.2-5.4); White Blood Count 5.2 K/mm3 (4.5-10.0)
[2024-10-30 05:53] LABS: Hemoglobin A1C 5.7 % (<5.7)
[2024-10-30 05:59] LABS: Alanine Aminotransferase 19 U/L (6-35); Albumin Level 4.5 g/dL (3.5-5.1); Alkaline Phosphatase 40 U/L (38-126); Anion Gap 10 mmol/L (4-12); Aspartate Amino Transferase 43 U/L (14-36); Bilirubin,Total 1.3 mg/dL (0.2-1.3); Blood Urea Nitrogen 10 mg/dL (7-17); Calcium 9.8 mg/dL (8.4-10.2); Carbon Dioxide 21 mmol/L (22-30); Chloride 104 mmol/L (98-107); Estimated CRCL calculation 43 ml/min; Estimated Glomerular Filt Rate 56; Glucose 115 mg/dL (65-110); HDL Direct 63 mg/dL; Magnesium 2.5 mg/dL (1.6-2.3); Potassium 3.7 mmol/L (3.4-5.0); Sodium 135 mmol/L (137-145); Total Protein 7.9 g/dL (6.3-8.2); Triglycerides 175 mg/dL (<150)
[2024-10-30 08:01] LABS: Cholesterol 354 mg/dL (0-200); Thyroid Stimulating Hormone Reflex > 100.000 uIU/mL (0.465-4.68)
[2024-10-30 09:10] LABS: Free T4 Free Thyroxine Reflex < 0.07 ng/dL (0.78-2.19)
[2024-10-30] MEDS: EZETIMIBE 10 MG TABLET PO (09:49)
[2024-10-30] MEDS: ENOXAPARIN 40 MG/0.4 ML SYRINGE SUB-Q (09:50)
[2024-10-30] MEDS: ASPIRIN 81 MG ENTERIC TABLET PO (09:50)
--- NOTE | 2024-10-30 14:20 | P.PNIM_ITS ---
Progress Note: A&P Assessment and Plan (1) CVA (cerebral vascular accident): Code(s): I63.9 - Cerebral infarction, unspecified Status: Acute Plan left facial numbness r/o CVA Patient noted symptom has been present for more than 1 day prior to presenation Still having numbness and decreased sensation on exam CT head, CTA head and neck and CXR unremarkable MRI brain pending A1c 5.7, LDL 200 Neurology, ST/OT/PT on family Continue aspirin and Ezetimibe, patient allergic to statin CKD stage III stable monitor CAD s/p stent Continue home meds HTN Allow permissive hypertension until tomorrow Hypothyroidism with elevated TSH and low T4 Levothyroxine increased to 175 from 150mcg patient will need close follow up pAfib continue meds once reconciled DVT prophylaxis on Sq Lovenox Full code SDN: Angelito Hutton Subjective Date/time seen: 10/30/24 14:20 Interval history: Comfortable at bedside Review of Systems Review of Systems: All other systems were reviewed and negative except as noted in the history above. Exam Narrative: General: alert and comfortable Eyes: EOMI, PERRLA ENNT External ears normal, Neck is supple, no masses, Respiratory systems: Clear to auscultation Cardiovascular S1, S2, normal rhythm, no murmur, rub, or gallop; no thrill or palpable murmurs on palpation. Gastrointestinal: soft, non-tender, and non-distended abdomen with no masses; BS present Skin: no rash, lesions, ulcerations, subcutaneous nodules or induration Musculoskeletal: no abnormality and no tenderness, normal ROM Neurologic: Alert and oriented x2, decreased sensation on left face Mental Status Exam: normal affect Objective Data Vital Signs Vital Signs: Vital Signs - 24 hr 10/29/24 16:00 10/29/24 19:55 10/29/24 22:00 Temperature 97.6 F Pulse Rate 67 71 70 Respiratory Rate 18 Blood Pressure 142/65 H Pulse Oximetry 97 Oxygen Delivery 10/30/24 00:00 10/30/24 04:00 10/30/24 05:55 Temperature 97.7 F Pulse Rate 59 L 49 L 69 Respiratory Rate 16 Blood Pressure 137/64 Pulse Oximetry 95 Oxygen Delivery 10/30/24 10:12 Temperature Pulse Rate Respiratory Rate Blood Pressure Pulse Oximetry Oxygen Delivery Room Air Intake/Output Intake/Output: Intake & Output 10/27/24 10/28/24 10/29/24 10/30/24 23:59 23:59 23:59 23:59 Intake Total 1340 1610 Balance 1340 1610 Meds/Results Medications: Active Medications Generic Name Dose Route Start Last Admin Trade Name Freq PRN Reason Stop Dose Admin Acetaminophen 650 mg 10/29/24 06:09 Acetaminophen 325 Mg Tablet PO Q4H PRN Mild Pain (1-3) or Fever Aspirin 81 mg 10/30/24 09:00 10/30/24 09:50 Aspirin 81 Mg Enteric Tablet PO 81 mg QAM [facility] Administration Ezetimibe 10 mg 10/30/24 09:00 10/30/24 09:49 Ezetimibe 10 Mg Tablet PO 10 mg QAM [facility] Administration Enoxaparin Sodium 40 mg 10/30/24 09:00 10/30/24 09:50 Enoxaparin 40 Mg/0.4 Ml Syringe SUB-Q 40 mg DAILY [facility] Administration Levothyroxine Sodium 100 mcg/ 175 mcg 10/31/24 06:30 Levothyroxine Sodium 75 mcg PO DAILY@0630 [facility] Ondansetron HCl 4 mg 10/29/24 06:09 Ondansetron Inj 4 Mg/2 Ml Vial IV PUSH Q4H PRN Nausea Spironolactone 25 mg 10/31/24 09:00 Spironolactone 25 Mg Tablet PO DAILY [facility] Radiology Results: ITS Impressions Head CT 10/28/24 19:25 IMPRESSION: 1. Stable appearance of mild scattered white matter hypoattenuation consistent with chronic small vessel ischemic disease. No acute intracranial process. Chest X-Ray 10/28/24 19:30 IMPRESSION: No focal infiltrate or effusion. Head/Neck CTA 10/29/24 05:53 IMPRESSION: 1. 50% stenosis of the proximal right internal carotid artery relative to normal distal artery lumen diameter (NASCET criteria). 2. 23% stenosis of the proximal left internal carotid artery relative to normal distal artery lumen diameter. 3: Mild-moderate stenosis of the right internal carotid artery at the cavernous segment secondary to atherosclerosis. Considerations include hypersensitivity pneumonitis, respiratory bronchiolitis, smoking-related bronchiolar disease. Labs Labs: Laboratory Results - last 24 hr 10/30/24 05:22 WBC 5.2 RBC 4.25 Hgb 12.9 Hct 38.9 MCV 91.5 MCH 30.4 MCHC 33.2 RDW 15.1 H Plt Count 162 MPV 11.1 H Immature Gran % (Auto) 0.4 Neut % (Auto) 50.4 Lymph % (Auto) 35.2 [place] % (Auto) 8.2 Eos % (Auto) 5.0 H Baso % (Auto) 0.8 Lymph # (Auto) 1.84 [place] # (Auto) 0.4 Eos # (Auto) 0.3 Baso # (Auto) 0.0 Abs Immat Gran (auto) 0.02 Absolute Neuts (auto) 2.6 Absolute Nucleated RBC 0.000 Nucleated RBC % 0.0 Sodium 135 L Potassium 3.7 Chloride 104 Carbon Dioxide 21 L Anion Gap 10 BUN 10 Creatinine 0.96 Estim Creat Clear Calc 43 Estimated GFR 56 L Glucose 115 H Hemoglobin A1c 5.7 Calcium 9.8 Magnesium 2.5 H Total Bilirubin 1.3 AST 43 H ALT 19 Alkaline Phosphatase 40 Total Protein 7.9 Albumin 4.5 Triglycerides 175 H Cholesterol 354 H LDL Cholesterol Direct 200 HDL Direct 63 TSH (Reflex) > 100.000 H Free T4 < 0.07 L
[2024-10-31 00:04] VITALS: PULSE 55
[2024-10-31 04:00] VITALS: PULSE 54
--- NOTE | 2024-10-31 04:40 | PC.NURSE ---
On physical assessment, I was not able to palpated pedal pulses. Used Doppler bilateral pedal pulses, regular pulse rhythm. Location marked where pulses were found. Patient denies any numbness but little tinging sensation which she says is normal for her.
[2024-10-31 06:00] VITALS: BP 144/87; PULSE 66; RESP 16; TEMP 36.6; O2SAT 100
[2024-10-31] MEDS: LEVOTHYROXINE SODIUM 100 MCG, LEVOTHYROXINE SODIUM 75 MCG 175 MCG PO (06:16)
[2024-10-31 06:43] LABS: Hematocrit 37.8 % (37.0-47.0); Hemoglobin 12.4 g/dL (12.0-15.0); Immature Granulocyte Percent A 0.2 % (0-0.5); Immature Platelet Fraction Pct 6.5 % (0.9-11.2); Lymphocytes Absolute Auto 1.50 K/mm3 (0.9-3.2); Mean Corpuscular HGB Conc 32.8 g/dl (32-36); Mean Corpuscular Hemoglobin 30.6 pg (26-34); Mean Corpuscular Volume 93.3 fl (80-100); Nucleated Red Blood Cells Absolute Auto 0.000 K/mm3 (0.0-0.012); Nucleated Red Blood Cells Perc 0.0 % (0.0-0.2); Platelet Count Result 141 k/mm3 (150-375); Red Blood Count 4.05 M/mm3 (4.2-5.4); White Blood Count 4.4 K/mm3 (4.5-10.0)
[2024-10-31 06:57] LABS: Alanine Aminotransferase 19 U/L (6-35); Albumin Level 4.2 g/dL (3.5-5.1); Alkaline Phosphatase 39 U/L (38-126); Anion Gap 10 mmol/L (4-12); Aspartate Amino Transferase 48 U/L (14-36); Bilirubin,Total 1.4 mg/dL (0.2-1.3); Blood Urea Nitrogen 9 mg/dL (7-17); Calcium 9.6 mg/dL (8.4-10.2); Carbon Dioxide 20 mmol/L (22-30); Chloride 104 mmol/L (98-107); Estimated CRCL calculation 45 ml/min; Estimated Glomerular Filt Rate 58; Glucose 103 mg/dL (65-110); Magnesium 2.4 mg/dL (1.6-2.3); Potassium 3.5 mmol/L (3.4-5.0); Sodium 134 mmol/L (137-145); Total Protein 7.6 g/dL (6.3-8.2)
[2024-10-31 08:00] VITALS: PULSE 60
[2024-10-31] MEDS: ASPIRIN 81 MG ENTERIC TABLET PO (08:55)
[2024-10-31] MEDS: EZETIMIBE 10 MG TABLET PO (08:55)
[2024-10-31] MEDS: SPIRONOLACTONE 25 MG TABLET PO (08:55)
[2024-10-31] MEDS: ENOXAPARIN 40 MG/0.4 ML SYRINGE SUB-Q (08:55)
[2024-10-31 11:17] LABS: Vitamin B12 264.0 pg/mL (239-931)
[2024-10-31 12:00] VITALS: PULSE 63
--- NOTE | 2024-10-31 12:23 | PM.DS ---
DS: Admitting Diagnosis Discharge Date 10/31/24 Admitting Diagnosis left sided numbness DS: Discharge Diagnosis Discharge Diagnosis (1) Left facial numbness: Code(s): R20.0 - Anesthesia of skin Status: Acute DS: Summary Hospital Course Hospital Course: Patient is an 84-year-old female past medical history of chronic kidney disease stage 3, coronary artery disease status post stents, chronic anemia, hypertension, hypothyroidism proximal atrial fibrillation and TIA who presented to the hospital last night with numbness experienced intermittently in the left cheek and hand. At the time of the interview, the patient did not report current numbness. The patient did not recall the specific reason for initially coming to the hospital. The numbness had reportedly been present for the last day or so. The patient did not report chest pain, weakness, or burning during urination. The patient was able to identify that they were in the hospital but was unsure of the current year. Emergency room evaluation notable for blood pressure 182/86, labs notable for sodium 133, creatinine 1.3, GFR 46, CT head unremarkable chest x-ray CTA head and neck are unremarkable. EKG show t wave inversion in V1 to V3. Patient still having left face numbness under time on this encounter. Neurology was consulted and MRI showed no acute changes, B12 264 and TSH was elevated with low T4. Thus patient was started on B12 IM 1000mcg discharge on weekly IM shots, Levothyroxine was increased from 150 to 175mcg and will continue follow up with PCP for monitoring. No bradycardia was noted. ECHO was normal. started on Ezetimibe as patient is allergic to statin. Patient already on 325 Aspirin. Patient was independent per PT/OT eval and was tolerating diet. WIll follow up with PCP in 3-5 days F/u with neurology as instructed Time Spent with Patient Time attestation: Total time spent providing and/or coordinating discharge services: DS: Data Data Completed and Pending Labs on day of discharge: Labs from last 24 hours 10/31/24 10/30/24 06:10 21:14 WBC 4.4 L RBC 4.05 L Hgb 12.4 Hct 37.8 MCV 93.3 MCH 30.6 MCHC 32.8 RDW 15.0 H Plt Count 141 L MPV 11.5 H Immature Gran % (Auto) 0.2 Neut % (Auto) 51.7 Lymph % (Auto) 33.9 [place] % (Auto) 8.1 Eos % (Auto) 5.2 H Baso % (Auto) 0.9 Lymph # (Auto) 1.50 [place] # (Auto) 0.4 Eos # (Auto) 0.2 Baso # (Auto) 0.0 Abs Immat Gran (auto) 0.01 Absolute Neuts (auto) 2.3 Absolute Nucleated RBC 0.000 Nucleated RBC % 0.0 % Immature Plt Fraction 6.5 Sodium 134 L Potassium 3.5 Chloride 104 Carbon Dioxide 20 L Anion Gap 10 BUN 9 Creatinine 0.92 Estim Creat Clear Calc 45 Estimated GFR 58 L Glucose 103 POC Capillary Glucose 125 H Calcium 9.6 Magnesium 2.4 H Total Bilirubin 1.4 H AST 48 H ALT 19 Alkaline Phosphatase 39 Total Protein 7.6 Albumin 4.2 Vitamin B12 264.0 Folate 6.2 Discharge Plan Discharge Attending physician on discharge: Gonzales Reynolds Consulting providers: Charlotte Calhoun Discharging Clinician: Gonzales Reynolds Anticipated Discharge Date/Time: 10/31/24 12:16 [facility] Activity: as tolerated Diet: as tolerated and heart healthy Patient Instructions: Antibiotic Form Patient Language: American Stand Alone Forms: General Discharge Information Follow-up/Referrals: Charlotte Calhoun MD [Physician] - (F/u with Neurology as instructed ) Tanya,MD Maria D [Primary Care Provider] - (F/u with PCP in 3-5 days ) Discharge Medications: New ezetimibe [Zetia] 10 mg Tablet 10 mg PO QAM 30 Days Qty: 30 1RF cyanocobalamin (vitamin B-12) 1,000 mcg/mL solution 1,000 mcg IM DAILY 7 Days Qty: 7 0RF Continued sertraline 100 mg Tablet 100 mg PO DAILY lisinopril 20 mg Tablet 20 mg PO DAILY spironolactone 25 mg tablet 25 mg PO DAILY pantoprazole 40 mg tablet,delayed release (DR/EC) 40 mg PO DAILY aspirin 325 mg Tablet 650 mg PO DAILY PRN (Reason: PAIN) amlodipine [Norvasc] 5 mg Tablet 5 mg PO QAM Qty: 30 0RF meclizine 25 mg Tablet 25 mg PO BID PRN (Reason: Dizziness) Qty: 30 0RF Changed levothyroxine 150 mcg Tablet 175 mcg PO DAILY 30 Days Qty: 30 1RF Date of admission: 10/29/24 12:51 Primary Care Provider: TanyaMaria D Admitting Provider: Pat Boston Attending physician on admission: Pat Boston Condition: Stable
[2024-10-31] MEDS: CYANOCOBALAMIN INJ 1,000 MCG/ML VIAL 1000 MCG IM (13:08)
== END 2024-10-31 14:30 | DRG 93 ==
LOC: ANHED 10-29 06:09 → ANH3MEDSUR 10-29 06:49
PROVIDERS: Emergency Medicine; Admitting Provider Internal Medicine; Emergency Provider Student in an Organized Health Care Education/Training Program; PCP Internal Medicine Geriatric Medicine; Visit Provider Internal Medicine
DX: R20.0 Anesthesia of skin (principal); R47.81 Slurred speech; R20.2 Paresthesia of skin; R82.81 Pyuria; R42 Dizziness and giddiness; R26.89 Other abnormalities of gait and mobility; E03.9 Hypothyroidism, unspecified; I10 Essential (primary) hypertension; I12.9 Hypertensive chronic kidney disease with stage 1 through stage 4 chronic kidney disease, or unspecified chronic kidney disease; N18.30 Chronic kidney disease, stage 3 unspecified; D64.9 Anemia, unspecified; I48.0 Paroxysmal atrial fibrillation; F03.90 Unspecified dementia, unspecified severity, without behavioral disturbance, psychotic disturbance, mood disturbance, and anxiety; I25.10 Atherosclerotic heart disease of native coronary artery without angina pectoris; R29.705 NIHSS score 5; Z79.82 Long term (current) use of aspirin; Z79.02 Long term (current) use of antithrombotics/antiplatelets; Z86.73 Personal history of transient ischemic attack (TIA), and cerebral infarction without residual deficits; Z95.5 Presence of coronary angioplasty implant and graft; Z95.1 Presence of aortocoronary bypass graft; Z90.49 Acquired absence of other specified parts of digestive tract
CPT/HCPCS: 36415; 70450; 70496; 70498; 70553; 71045; 80053; 80061; 81001; 82607; 82746; 82948; 83036; 83735; 84439; 84443; 84484; 85025; 85055; 85610; 85730; 87086; 92523; 93005; 96374; 96375; 97162; 97165; 99285; A9270; A9577; C8929; G0378; J1650; J3420; Q9957; Q9967